=== PATIENT | male | born 1990 | race Caucasian/White ===

== ENCOUNTER 2017-10-09 23:57 | Emergency (ER) | payer OTHER ==
[2017-10-10] MEDS ORDERED: NALOXONE HCL 0.4 MG/ML VIAL ONE ×2 (00:05→00:08)
[2017-10-10 00:20] VITALS: BP 153/109; PULSE 84; TEMP 98.7; BMI 24.4
--- NOTE | 2017-10-10 00:38 | PDOC ---
History of Present Illness - General Chief Complaint: Overdose Stated Complaint: OVERDOSE Time Seen by Provider: 10/10/17 00:19 History Source: Patient, EMS - History of Present Illness Initial Comments: 10/10/17 00:39 27 year old male BIB EMS for overdose of Percocet. s/p Narcan by EMS. patient alert slurred speech. reports that he get s Percocet from pain management took 3 tablets of percocet 7.5mg at 9 pm. 10/10/17 01:45 Past History - Past Medical History Allergies/Adverse Reactions: Allergies Allergy/AdvReac Type Severity Reaction Status Date / Time No Known Allergies Allergy Verified 10/10/17 00:17 Home Medications: Ambulatory Orders NK [No Known Home Medication] 08/13/16 Anemia: No Asthma: No Cancer: No Cardiac Disorders: No CVA: No COPD: No CHF: No Dementia: No Diabetes: No GI Disorders: No Disorders: No HTN: No Hypercholesterolemia: No Kidney Stones: No Liver Disease: No Seizures: Yes (etoh related last 1 wk) Thyroid Disease: No - Reproductive History Testicular Surgery: No - Immunization History Td Vaccination: Yes - Suicide/Smoking/Psychosocial Hx Smoking Status: Yes Smoking History: Current every day smoker Have you smoked in the past 12 months: No Number of Cigarettes Smoked Daily: 20 Information on smoking cessation initiated: No 'Breaking Loose' booklet given: 02/23/13 Hx Alcohol Use: No Drug/Substance Use Hx: No Substance Use Type: None Hx Substance Use Treatment: Yes Trauma Specific PMHX - Complaint Specific PMHX Arthritis: No Review of Systems - Review of Systems Able to Perform ROS?: Yes Is the patient limited Kiswahili proficient: No *Physical Exam - Vital Signs Last Vital Signs Temp Pulse Resp BP Pulse Ox 98.7 F 84 14 153/109 99 10/10/17 00:17 10/10/17 00:17 10/10/17 00:17 10/10/17 00:17 10/10/17 00:17 - Physical Exam General Appearance: Yes: Appropriately Dressed HEENT: positive: Other (pin point pupils) Respiratory/Chest: positive: Lungs Clear, Normal Breath Sounds Cardiovascular: positive: Regular Rhythm, Regular Rate Gastrointestinal/Abdominal: positive: Normal Bowel Sounds, Soft Extremity: positive: Normal Capillary Refill, Normal Inspection Integumentary: positive: Normal Color, Dry, Warm (neurologic is) Neurologic: positive: Alert, Other (slurred speech) Progress Note - Progress Note Progress Note: A:Opiod overdose; head injury P ct head LFT tylenol level will await sobriety prior to discharge. Medical Decision Making - Medical Decision Making 10/10/17 00:43 I spoke to poison control. recommend Tylenol level at 4 hour dane. if positive may need to repeat it at 8 hour dane. *DC/Admit/Observation/Transfer Diagnosis at time of Disposition: Drug abuse Overdose Qualifiers: Encounter type: initial encounter Injury intent: accidental or unintentional Qualified Code(s): T50.901A - Poisoning by unspecified drugs, medicaments and biological substances, accidental (unintentional), initial encounter - Discharge Dispostion Disposition: HOME - Referrals Referrals: Jr Downey [Primary Care Provider] - - Patient Instructions Printed Discharge Instructions: Prescription Drug Addiction Additional Instructions: refrain from using prescription drugs. - Post Discharge Activity
[2017-10-10 02:23] LABS: ALK PHOS 52 U/L (45-117); BILIRUBIN,DIRECT < 0.2 mg/dL (0.0-0.2); BILIRUBIN,TOTAL 0.4 mg/dL (0.2-1.0); SGOT/AST 13 U/L (15-37); SGPT/ALT 23 U/L (12-78); TOT PROT 7.5 g/dl (6.4-8.2)
== END 2017-10-10 04:02 | disposition home or self-care (01) ==
LOC: JER 23:57
DX: T40.2X1A Poisoning by other opioids, accidental (unintentional), initial encounter (principal); G40.509 Epileptic seizures related to external causes, not intractable, without status epilepticus; F17.210 Nicotine dependence, cigarettes, uncomplicated
CPT/HCPCS: 36415; 70450-TC; 80076; 80307; 99281-25

== ENCOUNTER 2017-11-01 08:09 | Inpatient (IN) | payer OTHER ==
[2017-11-01 08:46] VITALS: BMI 25.2
--- NOTE | 2017-11-01 09:27 | HP ---
COWS - Scale Resting Pulse: 0= NE 80 or Below Sweatin= Chills/Flushing Restless Observation: 1= Difficult to Sit Still Pupil Size: 0= Normal to Room Light Bone or Joint Aches: 1= Mild Discomfort Runny Nose/ Eye Tearin= Nasal Congestion GI Upset > 30mins: 1= Stomach Cramp Tremor Observation: 1= Tremor [place], Not Seen Yawning Observation: 0= None Anxiety or Irritability: 1=Feels Anxious/Irritable Goose Flesh Skin: 0=Smooth Skin COWS Score: 7 CIWA Score - CIWA Score Nausea/Vomitin Muscle Tremors: 4-Moderate,w/Arms Extend Anxiety: 4-Mod. Anxious/Guarded Agitation: 4-Moderately Restless Paroxysmal Sweats: 1-Minimal Palms Moist Orientation: 0-Oriented Tacttile Disturbances: 1-Very Mild Itch/Numbness Auditory Disturbances: 1-Very Mild Visual Disturbances: 1-Very Mild Sensitivity Headache: 2-Mild CIWA-Ar Total Score: 20 Admission ROS BHS - HPI Chief Complaint: I want to clean up, detox off drugs Allergies/Adverse Reactions: Allergies Allergy/AdvReac Type Severity Reaction Status Date / Time No Known Allergies Allergy Verified 11/01/17 09:22 History of Present Illness: 27 yo gentleman here for detox from heroin, alcohol - also using PCP. No seizures, never on methadone or suboxone. Was in [facility] detox in June, attended outpatient but relapsed. Exam Limitations: No Limitations - Ebola screening Have you traveled outside of the country in the last 21 days: No Have you had contact with anyone from an Ebola affected area: No Have you been sick,other than usual withdrawal symptoms: No Do you have a fever: No - Review of Systems Constitutional: Chills, Loss of Appetite, Changes in sleep, Weakness, Unintentional Wgt. Loss EENT: reports: Nose Congestion Respiratory: reports: No Symptoms reported Cardiac: reports: No Symptoms Reported GI: reports: Difficulty Swallowing, Poor Appetite, Indigestion : reports: No Symptoms Reported Musculoskeletal: reports: Back Pain, Muscle Pain Integumentary: reports: No Symptoms Reported Neuro: reports: Headache Endocrine: reports: No Symptoms Reported Hematology: reports: No Symptoms Reported Psychiatric: reports: Judgement Intact, Mood/Affect Appropiate, Orientated x3, Anxious Other Systems: Reviewed and Negative Patient History - Patient Medical History Hx Anemia: No Hx Asthma: No Hx Chronic Obstructive Pulmonary Disease (COPD): No Hx Cancer: No Hx Cardiac Disorders: No Hx Congestive Heart Failure: No Hx Hypertension: No Hx Hypercholesterolemia: No Hx Pacemaker: No HX Cerebrovascular Accident: No Hx Seizures: Yes (as a child - never medicated) Hx Dementia: No Hx Diabetes: No Hx Gastrointestinal Disorders: No Hx Liver Disease: No Hx Genitourinary Disorders: No Hx Sexually Transmitted Disorders: No Hx Renal Disease (ESRD): No Hx Thyroid Disease: No Hx Human Immunodeficiency Virus (HIV): No Hx Hepatitis C: No Hx Depression: Yes (Not in tx,was at [facility]) Hx Suicide Attempt: No Hx Bipolar Disorder: No Hx Schizophrenia: No - Patient Surgical History Past Surgical History: No - PPD History Previous Implant?: Yes Documented Results: Negative w/proof Implanted On Prior [facility] Admission?: No Date: 02/25/13 PPD to be Administered?: Yes - Reproductive History Patient is a Female of Child Bearing Age (11 -55 yrs old): No (male) - Smoking Cessation Smoking history: Current every day smoker Have you smoked in the past 12 months: No Aproximately how many cigarettes per day: 20 Hx Chewing Tobacco Use: No Initiated information on smoking cessation: Yes 'Breaking Loose' booklet given: 11/01/17 (give on floor) - Substance & Tx. History Hx Alcohol Use: Yes Hx Substance Use: Yes Substance Use Type: Alcohol, Heroin, Marijuana Hx Substance Use Treatment: Yes (detox, rehab) - Substances Abused Alcohol Route: Oral Frequency: Daily Amount used: cognac(1 pint) Age of first use: 12 Date of Last Use: 10/31/17 Heroin Route: Inhalation Frequency: Daily Amount used: 3-4 bags Age of first use: 21 Date of Last Use: 10/31/17 PCP Route: Smoking Frequency: Daily Amount used: $10 Age of first use: 14 Date of Last Use: 10/31/17 Family Disease History - Family Disease History Family Disease History: Respiratory: Mother (living, COPD), Brother (two - living, asthma), Sister (two - healthy), Other: Father (living, schizophrenic,) , Mother, Son (three - ages 12, 8, 3, healthy), Daughter (one - age 11, healthy) Admission Physical Exam BHS - Vital Signs Vital Signs: Vital Signs - 24 hr 11/01/17 08:25 Temperature 97.9 F Pulse Rate 73 Respiratory 18 Rate Blood Pressure 149/70 - Physical General Appearance: Yes: Nourished, Appropriately Dressed, Mild Distress HEENTM: Yes: Hearing grossly Normal, Normocephalic, Normal Voice, Pharynx Normal , Nasal Congestion Respiratory: Yes: Normal Breath Sounds, No Respiratory Distress Neck: Yes: No masses,lesions,Nodules, Supple Breast: Yes: Breast Exam Deferred Cardiology: Yes: Regular Rhythm, Regular Rate Abdominal: Yes: Flat Genitourinary: Yes: Within Normal Limits Back: Yes: Normal Inspection Musculoskeletal: Yes: full range of Motion, Gait Steady, Back pain, Muscle Pain Extremities: Yes: Normal Inspection, Non-Tender Neurological: Yes: Fully Oriented, Alert, Normal Mood/Affect, Normal Response Integumentary: Yes: Normal Color, Warm Lymphatic: Yes: Within Normal Limits - Diagnostic (1) Alcohol dependence Current Visit: Yes Status: Active (2) Uncomplicated opioid dependence Current Visit: Yes Status: Acute (3) Nicotine dependence Current Visit: Yes Status: Acute Qualifiers: Nicotine product type: cigarettes Substance use status: uncomplicated Qualified Code(s): F17.210 - Nicotine dependence, cigarettes, uncomplicated (4) History of seizure Current Visit: Yes Status: Acute Cleared for Admission [facility] - Detox or Rehab [facility] Level of Care: Medically Managed Detox Regimen/Protocol: Methadone/Librium [facility] Breath Alcohol Content Breath Alcohol Content: 0 Urine Drug Screen - Results Drug Screen Negative: No Urine Drug Screen Results: THC-Marijuana, OPI-Opiates, PCP-Phencyclidine
[2017-11-01] MEDS ORDERED: MENTHOL/PHENOL 1 EACH UD MM PRN (10:10)
[2017-11-01] MEDS ORDERED: ACETAMINOPHEN 325 MG TABLET (FP) PO PRN (10:10)
[2017-11-01] MEDS ORDERED: MAGNESIUM HYDROX 2400MG/30ML ORAL SUSPENSION 30 ML CUP PO PRN (10:10)
[2017-11-01] MEDS ORDERED: P-EPHED 60MG/TRIPROLIDI 2.5MG TABLET PO PRN (10:10)
[2017-11-01] MEDS ORDERED: LOPERAMIDE HCL 2 MG CAPSULE PO PRN (10:10)
[2017-11-01] MEDS ORDERED: MAG HYDROX/AL HYDROX/SIMETH 30 ML UNIT-DOSE CUP PO PRN (10:10)
[2017-11-01] MEDS ORDERED: MAGNESIUM CITRATE 300 ML BOTTLE PO PRN (10:10)
[2017-11-01] MEDS ORDERED: IBUPROFEN 400 MG TABLET (FP) PO PRN (10:10)
[2017-11-01] MEDS ORDERED: guaiFENesin/D-METHORPHAN HB 10 ML UNIT-DOSE CUPS PO PRN (10:10)
[2017-11-01] MEDS ORDERED: NICOTINE POLACRILEX 4 MG GUM BUC PRN (10:13)
[2017-11-01] MEDS: chlordiazePOXIDE HCL 25 MG CAPSULE PO PRN ×2 (11:15→21:14)
[2017-11-01] MEDS ORDERED: METHADONE HCL 10 MG TABLET (FOR DETOX USE ONLY) PO ONE ×2 (12:00→23:00)
[2017-11-01] MEDS ORDERED: chlordiazePOXIDE HCL 25 MG CAPSULE PO ONE (15:00)
[2017-11-01] MEDS: chlordiazePOXIDE HCL 25 MG CAPSULE PO SCH ×2 (17:16→22:50)
[2017-11-01] MEDS: THIAMINE HCL 100 MG TABLET (FP) PO SCH (22:50)
[2017-11-02 00:22] LABS: URINE APPEARANCE CLOUDY; URINE BILIRUBIN NEGATIVE (NEGATIVE); URINE BLOOD NEGATIVE (NEGATIVE); URINE COLOR YELLOW; URINE GLUCOSE (UA) NEGATIVE (NEGATIVE); URINE KETONE NEGATIVE (NEGATIVE); URINE LEUK ESTERASE TRACE (NEGATIVE); URINE NITRITE NEGATIVE (NEGATIVE); URINE PROTEIN NEGATIVE (NEGATIVE)
[2017-11-02 00:44] LABS: EPI CELLS RARE /HPF (FEW); URINE BACTERIA RARE /hpf (NONE SEEN); URINE MUCUS MANY
[2017-11-02] MEDS: chlordiazePOXIDE HCL 25 MG CAPSULE PO PRN (01:24)
[2017-11-02] MEDS: chlordiazePOXIDE HCL 25 MG CAPSULE PO SCH ×4 (05:15→22:20)
--- NOTE | 2017-11-02 08:55 | EKG ---
Test Reason : Blood Pressure : / mmHG Vent. Rate : 073 BPM Atrial Rate : 073 BPM P-R Int : 134 ms QRS Dur : 102 ms QT Int : 376 ms P-R-T Axes : 078 082 065 degrees QTc Int : 414 ms NORMAL SINUS RHYTHM NORMAL ECG WHEN COMPARED WITH ECG OF 11-JUN-2015 00:22, NO SIGNIFICANT CHANGE WAS FOUND Confirmed by ISABEL SOTELO MD ([id number]) on 11/02/2017 8:54:58 AM Referred By: Confirmed By:ISABEL SOTELO MD
[2017-11-02] MEDS ORDERED: METHADONE HCL 10 MG TABLET (FOR DETOX USE ONLY) PO SCH (10:00)
[2017-11-02 10:09] LABS: ALBUMIN 3.9 g/dl (3.4-5.0); ANION GAP 7 (8-16); BLOOD UREA NITROGEN 15 mg/dL (7-18); CALCIUM 9.2 mg/dL (8.5-10.1); CHLORIDE 105 mmol/L (98-107); CO2 29 mmol/L (21-32); GLUCOSE,RANDOM 69 mg/dL (74-106); POTASSIUM 4.1 mmol/L (3.5-5.1); SODIUM 141 mmol/L (136-145)
[2017-11-02 10:14] LABS: ALK PHOS 66 U/L (45-117); BILIRUBIN,TOTAL 0.6 mg/dL (0.2-1.0); CREATININE 1.1 mg/dL (0.7-1.3); SGOT/AST 10 U/L (15-37); SGPT/ALT 22 U/L (12-78); TOT PROT 7.7 g/dl (6.4-8.2)
[2017-11-02 10:23] LABS: HEMATOCRIT 46.8 % (35.4-49); HEMOGLOBIN 15.7 GM/dL (11.7-16.9); MCH 30.6 pg (25.7-33.7); MCHC 33.5 g/dl (32.0-35.9); MEAN CELL VOLUME 91.4 fl (80-96); MEAN PLT VOLUME 10.1 fl (7.5-11.1); PLATELET COUNT 222 K/MM3 (134-434); RBC 5.12 M/mm3 (4.00-5.60); RDW 13.4 % (11.9-15.9); WHITE BLOOD COUNT 8.2 K/mm3 (4.0-10.0)
[2017-11-02] MEDS: PRENATAL VITAMINS W/ FOLIC ACID TABLET (FP) PO SCH (10:32)
[2017-11-02] MEDS ORDERED: FLU VACCINE QUAD 60 MCG/0.5 ML (MDV 17-18) IM ONE (12:00)
--- NOTE | 2017-11-02 12:02 | PN ---
[facility] CIWA - CIWA Score Nausea/Vomitin-No Nausea/No Vomiting Muscle Tremors: 1-None Visible, but [place] Anxiety: 1-Mildly Anxious Agitation: 1-Slight > Activity Paroxysmal Sweats: No Perspiration Orientation: 0-Oriented Tacttile Disturbances: 0-None Auditory Disturbances: 0-None Visual Disturbances: 0-None Headache: 0-None Present CIWA-Ar Total Score: 3 S COWS - Scale Resting Pulse: 0= [place] 80 or Below Sweatin= No chills or Flushing Restless Observation: 1= Difficult to Sit Still Pupil Size: 1= Pupils >than Normal Bone or Joint Aches: 2= Severe Diffuse Aches Runny Nose/ Eye Tearin= Runny Nose/Eyes GI Upset > 30mins: 1= Stomach Cramp Tremor Observation of Outstretched Hands: 1= Tremor [place], Not Seen Yawning Observation: 2= >3x During Session Anxiety or Irritability: 2=Irritable/Anxious Goose Flesh Skin: 3=Piloerection COWS Score: 15 [facility] Progress Note (SOAP) Subjective: joint pain irritable yawning Objective: 11/02/17 12:03 Vital Signs Temperature 97 F L 11/02/17 10:37 Pulse Rate 68 11/02/17 10:37 Respiratory Rate 16 11/02/17 10:37 Blood Pressure 125/67 11/02/17 10:37 O2 Sat by Pulse Oximetry (%) Laboratory Last Values WBC 8.2 K/mm3 (4.0-10.0) D 11/02/17 06:00 RBC 5.12 M/mm3 (4.00-5.60) 11/02/17 06:00 Hgb 15.7 GM/dL (11.7-16.9) 11/02/17 06:00 Hct 46.8 % (35.4-49) 11/02/17 06:00 MCV 91.4 fl (80-96) 11/02/17 06:00 MCH 30.6 pg (25.7-33.7) 11/02/17 06:00 MCHC 33.5 g/dl (32.0-35.9) 11/02/17 06:00 RDW 13.4 % (11.9-15.9) 11/02/17 06:00 Plt Count 222 K/MM3 (134-434) 11/02/17 06:00 MPV 10.1 fl (7.5-11.1) 11/02/17 06:00 Sodium 141 mmol/L (136-145) 11/02/17 06:00 Potassium 4.1 mmol/L (3.5-5.1) 11/02/17 06:00 Chloride 105 mmol/L (98-107) 11/02/17 06:00 Carbon Dioxide 29 mmol/L (21-32) 11/02/17 06:00 Anion Gap 7 (8-16) L 11/02/17 06:00 BUN 15 mg/dL (7-18) 11/02/17 06:00 Creatinine 1.1 mg/dL (0.7-1.3) 11/02/17 06:00 Creat Clearance w eGFR > 60 (>60) 11/02/17 06:00 Random Glucose 69 mg/dL (74-106) L 11/02/17 06:00 Calcium 9.2 mg/dL (8.5-10.1) 11/02/17 06:00 Total Bilirubin 0.6 mg/dL (0.2-1.0) D 11/02/17 06:00 AST 10 U/L (15-37) L D 11/02/17 06:00 ALT 22 U/L (12-78) 11/02/17 06:00 Alkaline Phosphatase 66 U/L (45-117) D 11/02/17 06:00 Total Protein 7.7 g/dl (6.4-8.2) 11/02/17 06:00 Albumin 3.9 g/dl (3.4-5.0) 11/02/17 06:00 Urine Color Yellow 11/01/17 14:30 Urine Appearance Cloudy 11/01/17 14:30 Urine pH 6.0 (5.0-8.0) 11/01/17 14:30 Ur Specific [place] 1.026 (1.001-1.035) 11/01/17 14:30 Urine Protein Negative (NEGATIVE) 11/01/17 14:30 Urine Glucose (UA) Negative (NEGATIVE) 11/01/17 14:30 Urine Ketones Negative (NEGATIVE) 11/01/17 14:30 Urine Blood Negative (NEGATIVE) 11/01/17 14:30 Urine Nitrite Negative (NEGATIVE) 11/01/17 14:30 Urine Bilirubin Negative (NEGATIVE) 11/01/17 14:30 Urine Urobilinogen 2.0 mg/dL (0.2-1.0) 11/01/17 14:30 Urine WBC (Auto) 3 /hpf (3-5) 11/01/17 14:30 Urine RBC (Auto) 5 /hpf (0-3) 11/01/17 14:30 Ur Epithelial Cells Rare /HPF (FEW) 11/01/17 14:30 Urine Bacteria Rare /hpf (NONE SEEN) 11/01/17 14:30 Urine Mucus Many 11/01/17 14:30 RPR Titer Nonreactive (NONREACTIVE) 11/02/17 06:00 HIV 1&2 Antibody Screen Negative 11/02/17 06:00 HIV P24 Antigen Negative 11/02/17 06:00 lab noted Assessment: 11/02/17 12:03 withdrawal sx Plan: continue detox
[2017-11-02] MEDS ORDERED: chlordiazePOXIDE HCL 25 MG CAPSULE PO ONE (13:00)
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
[2017-11-02] MEDS: NICOTINE 21 MG/24 HOURS TOPICAL PATCH TD SCH (17:48)
[2017-11-02] MEDS: QUEtiapine FUMARATE 100 MG TABLET (FP) PO SCH (22:19)
[2017-11-02] MEDS: THIAMINE HCL 100 MG TABLET (FP) PO SCH (22:19)
[2017-11-03] MEDS: chlordiazePOXIDE HCL 25 MG CAPSULE PO SCH ×2 (05:41→10:14)
[2017-11-03] MEDS: PRENATAL VITAMINS W/ FOLIC ACID TABLET (FP) PO SCH (10:13)
[2017-11-03] MEDS: NICOTINE 21 MG/24 HOURS TOPICAL PATCH TD SCH (10:14)
[2017-11-03] MEDS: METHADONE HCL 5 MG TABLET (FOR DETOX USE ONLY) PO SCH (10:14)
--- NOTE | 2017-11-03 12:14 | PN ---
[facility] CIWA - CIWA Score Nausea/Vomitin-Mild Nausea/No Vomiting Muscle Tremors: 4-Moderate,w/Arms Extend Anxiety: 3 Agitation: 3 Paroxysmal Sweats: 3 Orientation: 0-Oriented Tacttile Disturbances: 0-None Auditory Disturbances: 0-None Visual Disturbances: 0-None Headache: 0-None Present CIWA-Ar Total Score: 14 [facility] COWS - Scale Resting Pulse: 0= [place] 80 or Below Sweatin=Flushed/Facial Moisture Restless Observation: 1= Difficult to Sit Still Pupil Size: 0= Normal to Room Light Bone or Joint Aches: 2= Severe Diffuse Aches Runny Nose/ Eye Tearin= Nasal Congestion GI Upset > 30mins: 2= Nausea/Diarrhea Tremor Observation of Outstretched Hands: 1= Tremor [place], Not Seen Yawning Observation: 2= >3x During Session Anxiety or Irritability: 2=Irritable/Anxious Goose Flesh Skin: 0=Smooth Skin COWS Score: 13 S Progress Note (SOAP) Subjective: sweats shakes irritable body aches interrupted sleep nausea Objective: 11/03/17 12:12 Vital Signs Temperature 97.9 F 11/03/17 06:20 Pulse Rate 62 11/03/17 10:00 Respiratory Rate 16 11/03/17 10:00 Blood Pressure 123/78 11/03/17 10:00 O2 Sat by Pulse Oximetry (%) Laboratory Tests 11/01/17 11/02/17 11/02/17 14:30 06:00 06:00 WBC 8.2 D RBC 5.12 Hgb 15.7 Hct 46.8 MCV 91.4 MCH 30.6 MCHC 33.5 RDW 13.4 Plt Count 222 MPV 10.1 Sodium Potassium Chloride Carbon Dioxide Anion Gap BUN Creatinine Creat Clearance w eGFR Random Glucose Calcium Total Bilirubin AST ALT Alkaline Phosphatase Total Protein Albumin Urine Color Yellow Urine Appearance Cloudy Urine pH 6.0 Ur Specific [place] 1.026 Urine Protein Negative Urine Glucose (UA) Negative Urine Ketones Negative Urine Blood Negative Urine Nitrite Negative Urine Bilirubin Negative Urine Urobilinogen 2.0 Ur Leukocyte Esterase Negative Urine WBC (Auto) 3 Urine RBC (Auto) 5 Ur Epithelial Cells Rare Urine Bacteria Rare Urine Mucus Many RPR Titer HIV 1&2 Antibody Screen Negative HIV P24 Antigen Negative 11/02/17 11/02/17 06:00 06:00 WBC RBC Hgb Hct MCV MCH MCHC RDW Plt Count MPV Sodium 141 Potassium 4.1 Chloride 105 Carbon Dioxide 29 Anion Gap 7 L BUN 15 Creatinine 1.1 Creat Clearance w eGFR > 60 Random Glucose 69 L Calcium 9.2 Total Bilirubin 0.6 D AST 10 L D ALT 22 Alkaline Phosphatase 66 D Total Protein 7.7 Albumin 3.9 Urine Color Urine Appearance Urine pH Ur Specific [place] Urine Protein Urine Glucose (UA) Urine Ketones Urine Blood Urine Nitrite Urine Bilirubin Urine Urobilinogen Ur Leukocyte Esterase Urine WBC (Auto) Urine RBC (Auto) Ur Epithelial Cells Urine Bacteria Urine Mucus RPR Titer Nonreactive HIV 1&2 Antibody Screen HIV P24 Antigen aaox3 ambulating no acute distress Assessment: 11/03/17 12:13 withdrawal sx Plan: continue detox increase fluids ensure plus bid zofran prn
[2017-11-03] MEDS: chlordiazePOXIDE HCL 25 MG CAPSULE PO PRN ×2 (13:38→19:39)
[2017-11-03] MEDS: chlordiazePOXIDE 5 MG CAPSULE PO SCH ×2 (16:52→22:40)
[2017-11-03] MEDS: THIAMINE HCL 100 MG TABLET (FP) PO SCH (22:40)
[2017-11-03] MEDS: QUEtiapine FUMARATE 100 MG TABLET (FP) PO SCH (22:40)
[2017-11-04] MEDS: chlordiazePOXIDE 5 MG CAPSULE PO SCH ×2 (05:30→10:21)
[2017-11-04] MEDS: PRENATAL VITAMINS W/ FOLIC ACID TABLET (FP) PO SCH (10:21)
[2017-11-04] MEDS: METHADONE HCL 5 MG TABLET (FOR DETOX USE ONLY) PO SCH (10:21)
[2017-11-04] MEDS: NICOTINE 21 MG/24 HOURS TOPICAL PATCH TD SCH (10:21)
--- NOTE | 2017-11-04 12:08 | PN ---
[facility] Progress Note (SOAP) Subjective: anxiety chills sweats interrupted sleep Objective: 11/04/17 12:07 Vital Signs Temperature 96.8 F L 11/04/17 10:00 Pulse Rate 73 11/04/17 10:00 Respiratory Rate 18 11/04/17 10:00 Blood Pressure 134/79 11/04/17 10:00 O2 Sat by Pulse Oximetry (%) aaox3 ambulating no acute distress Assessment: 11/04/17 12:07 withdrawal sx Plan: continue detox increase fluids
[2017-11-04] MEDS: chlordiazePOXIDE HCL 10 MG CAPSULE PO SCH ×2 (17:37→22:12)
[2017-11-04] MEDS: THIAMINE HCL 100 MG TABLET (FP) PO SCH (22:12)
[2017-11-04] MEDS: diphenhydrAMINE HCL 50 MG CAPSULE PO PRN (22:12)
[2017-11-04] MEDS: QUEtiapine FUMARATE 100 MG TABLET (FP) PO SCH (22:12)
[2017-11-05] MEDS: chlordiazePOXIDE HCL 10 MG CAPSULE PO SCH ×2 (05:20→10:31)
[2017-11-05] MEDS ORDERED: METHADONE HCL 10 MG TABLET (FOR DETOX USE ONLY) PO SCH (10:00)
--- NOTE | 2017-11-05 10:24 | PN ---
[facility] Progress Note (SOAP) Subjective: tired shakes sweats Objective: 11/05/17 10:10 Vital Signs Temperature 97.5 F L 11/05/17 09:59 Pulse Rate 96 H 11/05/17 09:59 Respiratory Rate 18 11/05/17 09:59 Blood Pressure 106/63 11/05/17 09:59 O2 Sat by Pulse Oximetry (%) aaox3 ambulating no acute distress Assessment: 11/05/17 10:24 mild withdrawal sx Plan: continue detox d/c in am
[2017-11-05] MEDS: NICOTINE 21 MG/24 HOURS TOPICAL PATCH TD SCH (10:31)
[2017-11-05] MEDS: PRENATAL VITAMINS W/ FOLIC ACID TABLET (FP) PO SCH (10:31)
[2017-11-05 22:29] VITALS: PULSE 83
[2017-11-05] MEDS: THIAMINE HCL 100 MG TABLET (FP) PO SCH (22:44)
[2017-11-05] MEDS: QUEtiapine FUMARATE 100 MG TABLET (FP) PO SCH (22:44)
[2017-11-05] MEDS: diphenhydrAMINE HCL 50 MG CAPSULE PO PRN (22:45)
[2017-11-06] MEDS ORDERED: METHADONE HCL 5 MG TABLET (FOR DETOX USE ONLY) PO SCH (06:00)
[2017-11-06 06:35] VITALS: BP 114/56; TEMP 97.3
--- NOTE | 2017-11-06 08:43 | DS ---
[facility] Detox Discharge Summary Admission Date: 11/01/17 Discharge Date: 11/06/17 - History Present History: Alcohol Dependence, Opioid Dependence, Pcp Dependence - Physical Exam Results Vital Signs: Vital Signs Temperature 97.3 F L 11/06/17 06:35 Pulse Rate 83 11/06/17 06:35 Respiratory Rate 18 11/06/17 06:35 Blood Pressure 114/56 11/06/17 06:35 O2 Sat by Pulse Oximetry (%) - Treatment Hospital Course: Detox Protocol Followed, Detoxed Safely, Responded well, Discharged Condition Good, Rehab Referral Accepted - Medication Discharge Medications: Ambulatory Orders NK [No Known Home Medication] 08/13/16 - Diagnosis (1) Alcohol dependence with uncomplicated withdrawal Current Visit: Yes Status: Chronic (2) History of seizure Current Visit: Yes Status: Suspected (3) Opioid dependence with withdrawal Current Visit: Yes Status: Chronic (4) Phencyclidine dependence Current Visit: Yes Status: Chronic (5) Substance induced mood disorder Current Visit: Yes Status: Acute (6) Substance-induced sleep disorder Current Visit: Yes Status: Acute (7) Bipolar disorder Current Visit: Yes Status: Chronic (8) Nicotine dependence Current Visit: Yes Status: Chronic Qualifiers: Nicotine product type: cigarettes Substance use status: uncomplicated Qualified Code(s): F17.210 - Nicotine dependence, cigarettes, uncomplicated - AMA Did Patient Leave Against Medical Advice: No
== END 2017-11-06 09:25 | disposition home or self-care (01) | DRG 773 ==
LOC: YASAS 08:09 → Y6N 09:42
PROVIDERS: ADMIT Internal Medicine; ATTEND Internal Medicine
PROC: HZ2ZZZZ Detoxification Services for Substance Abuse Treatment (ICD-10-PCS; principal; 2017-11-01)
DX: F11.23 Opioid dependence with withdrawal (principal); F10.230 Alcohol dependence with withdrawal, uncomplicated; F16.20 Hallucinogen dependence, uncomplicated; F17.210 Nicotine dependence, cigarettes, uncomplicated; F19.24 Other psychoactive substance dependence with psychoactive substance-induced mood disorder; F19.282 Other psychoactive substance dependence with psychoactive substance-induced sleep disorder; F31.9 Bipolar disorder, unspecified; Z86.69 Personal history of other diseases of the nervous system and sense organs
CPT/HCPCS: 36415; 80053; 81003; 81015; 85027; 86593; 87389; 90688; 93005; 93010; G0008

== ENCOUNTER 2018-10-26 17:28 | Inpatient (IN) | payer OTHER ==
[2018-10-26 19:08] VITALS: BMI 24.3
--- NOTE | 2018-10-26 21:52 | HP ---
COWS - Scale Resting Pulse: 0= NC 80 or Below Sweatin=Flushed/Facial Moisture Restless Observation: 1= Difficult to Sit Still Pupil Size: 1= Pupils >than Normal Bone or Joint Aches: 4=Acute Joint/Muscle Pain Runny Nose/ Eye Tearin= Runny Nose/Eyes GI Upset > 30mins: 3= Vomiting/Diarrhea (vomiting x 2, diarrhea x 1) Tremor Observation: 2= Slight Tremor Visible Yawning Observation: 0= None Anxiety or Irritability: 2=Irritable/Anxious Goose Flesh Skin: 0=Smooth Skin COWS Score: 17 CIWA Score Nausea/Vomitin (vomiting x 2) Muscle Tremors: 4-Moderate,w/Arms Extend Anxiety: 1-Mildly Anxious Agitation: 1-Slight > Activity Paroxysmal Sweats: 1-Minimal Palms Moist Orientation: 0-Oriented Tacttile Disturbances: 1-Very Mild Itch/Numbness Auditory Disturbances: 0-None Visual Disturbances: 0-None Headache: 4-Moderately Severe CIWA-Ar Total Score: 15 - Admission Criteria [facility]ASAS Guidelines: Admission for Medically Managed Detox: Requires at least one of the followin. CIWA greater than 12 2. Seizures within the past 24 hours 3. Delirium tremens within the past 24 hours 4. Hallucinations within the past 24 hours 5. Acute intervention needed for co occurring medical disorder 6. Acute intervention needed for co occurring psychiatric disorder 7. Severe withdrawal that cannot be handled at a lower level of care (continued vomiting, continued diarrhea, abnormal vital signs) requiring intravenous medication and/or fluids 8. Admission ROS [facility] Chief Complaint: Heroin and alcohol withdrawal symptoms Allergies/Adverse Reactions: Allergies Allergy/AdvReac Type Severity Reaction Status Date / Time No Known Allergies Allergy Verified 10/26/18 20:39 History of Present Illness: 28 years old male with a long history of alcohol and heroin dependence (since age 12) is seeking admission to detox. Patient has been admitted to detox multiple times and reports insignificant period of sobriety (30 days while on treatment). Patient reports history of anxiety, seizure and depression. He denies suicidal ideation at this time. Exam Limitations: No Limitations - Ebola screening Have you traveled outside of the country in the last 21 days: No (N) Have you had contact with anyone from an Ebola affected area: No Have you been sick,other than usual withdrawal symptoms: No Do you have a fever: No - Review of Systems Constitutional: Chills, Loss of Appetite, Malaise, Night Sweats, Changes in sleep EENT: reports: No Symptoms Reported Respiratory: reports: No Symptoms reported Cardiac: reports: No Symptoms Reported GI: reports: Diarrhea, Nausea, Poor Appetite, Poor Fluid Intake, Vomiting, Abdominal cramping : reports: No Symptoms Reported Musculoskeletal: reports: Back Pain, Joint Pain, Muscle Pain Integumentary: reports: Dryness, Flushing Neuro: reports: Tremors Endocrine: reports: No Symptoms Reported Hematology: reports: No Symptoms Reported Psychiatric: reports: Orientated x3, Anxious, Depressed Other Systems: Reviewed and Negative Patient History - Patient Medical History Hx Anemia: No Hx Asthma: No Hx Chronic Obstructive Pulmonary Disease (COPD): No Hx Cancer: No Hx Cardiac Disorders: No Hx Congestive Heart Failure: No Hx Hypertension: No Hx Hypercholesterolemia: No Hx Pacemaker: No HX Cerebrovascular Accident: No Hx Seizures: Yes (Has seizure as a baby - Not on medication) Hx Dementia: No Hx Diabetes: No Hx Gastrointestinal Disorders: No Hx Liver Disease: No Hx Genitourinary Disorders: No Hx Sexually Transmitted Disorders: No Hx Renal Disease (ESRD): No Hx Thyroid Disease: No Hx Human Immunodeficiency Virus (HIV): No Hx Hepatitis C: No Hx Depression: Yes (Not on medication) Hx Suicide Attempt: No (Denies suicidal ideation at this time) Hx Bipolar Disorder: No Hx Schizophrenia: No Other Medical History: Anxiety - Not on medicaton - Patient Surgical History Past Surgical History: No Hx Neurologic Surgery: No Hx Cataract Extraction: No Hx Cardiac Surgery: No Hx Lung Surgery: No Hx Abdominal Surgery: No Hx Appendectomy: No Hx Cholecystectomy: No Hx Genitourinary Surgery: No Hx Orthopedic Surgery: No Anesthesia Reaction: No - PPD History Previous Implant?: Yes Documented Results: Negative w/o proof Date: 11/03/17 PPD to be Administered?: Yes - Reproductive History Patient is a Female of Child Bearing Age (11 -55 yrs old): No (Male) - Smoking Cessation Smoking history: Current every day smoker Have you smoked in the past 12 months: No Aproximately how many cigarettes per day: 20 Cigars Per Day: 0 Hx Chewing Tobacco Use: No Initiated information on smoking cessation: Yes 'Breaking Loose' booklet given: 10/26/18 - Substance & Tx. History Hx Alcohol Use: Yes Hx Substance Use: Yes Substance Use Type: Alcohol, Heroin Hx Substance Use Treatment: Yes ([facility]) - Substances Abused Alcohol Route: Oral Frequency: Daily Amount used: 1 PINT Age of first use: 17 Date of Last Use: 10/25/18 Heroin Route: SNIFF Frequency: Daily Amount used: 20 BAGS Age of first use: 24 Date of Last Use: 10/25/18 Family Disease History - Family Disease History Family Disease History: Respiratory: Mother (living, COPD), Brother (two - living, asthma), Sister (two - healthy), Other: Father (living, schizophrenic,) , Mother, Son (three - ages 12, 8, 3, healthy), Daughter (one - age 11, healthy) Admission Physical Exam [facility] - Vital Signs Vital Signs: Vital Signs - 24 hr 10/26/18 19:06 Temperature 97.1 F L Pulse Rate 70 Respiratory 18 Rate Blood Pressure 130/72 - Physical General Appearance: Yes: Tremorous, Irritable, Sweating, Anxious HEENTM: Yes: EOMI, Normal ENT Inspection, Normocephalic, Normal Voice, PARRIS Respiratory: Yes: Lungs Clear, Normal Breath Sounds, No Respiratory Distress Neck: Yes: Supple Breast: Yes: Breast Exam Deferred Cardiology: Yes: Regular Rhythm, Regular Rate Abdominal: Yes: Normal Bowel Sounds, Soft Genitourinary: Yes: Within Normal Limits Back: Yes: Normal Inspection Musculoskeletal: Yes: Back pain, Muscle Pain, Muscle weakness Extremities: Yes: Tremors Neurological: Yes: cloth printer II-XII NML intact, Alert, Normal Mood/Affect Integumentary: Yes: Warm Lymphatic: Yes: Within Normal Limits - Diagnostic (1) Depression Current Visit: Yes Status: Chronic Qualifiers: Depression Type: unspecified Qualified Code(s): F32.9 - Major depressive disorder, single episode, unspecified (2) Anxiety Current Visit: Yes Status: Chronic (3) Alcohol dependence with uncomplicated withdrawal Current Visit: Yes Status: Chronic (4) Nicotine dependence Current Visit: Yes Status: Chronic Qualifiers: Nicotine product type: cigarettes Substance use status: uncomplicated Qualified Code(s): F17.210 - Nicotine dependence, cigarettes, uncomplicated (5) Opioid dependence with withdrawal Current Visit: Yes Status: Chronic (6) History of seizure Current Visit: No Status: Suspected Cleared for Admission S - Detox or Rehab [facility] Level of Care: Medically Managed Detox Regimen/Protocol: Methadone/Valium [facility] Breath Alcohol Content Breath Alcohol Content: 0 Urine Drug Screen - Results Drug Screen Negative: Yes Urine Drug Screen Results: THC-Marijuana, OPI-Opiates
[2018-10-26] MEDS ORDERED: MELATONIN 5 MG TABLETS PO PRN (22:00)
[2018-10-26] MEDS ORDERED: IBUPROFEN 400 MG TABLET (FP) PO PRN (22:11)
[2018-10-26] MEDS ORDERED: METHADONE HCL 10 MG TABLET (FOR DETOX USE ONLY) PO ONE ×6 (22:11→23:15)
[2018-10-26] MEDS ORDERED: LOPERAMIDE HCL 2 MG CAPSULE PO PRN (22:11)
[2018-10-26] MEDS ORDERED: MENTHOL/PHENOL 1 EACH UD MM PRN (22:11)
[2018-10-26] MEDS ORDERED: MAGNESIUM HYDROX 2400MG/30ML ORAL SUSPENSION 30 ML CUP PO PRN (22:11)
[2018-10-26] MEDS ORDERED: NICOTINE POLACRILEX 2 MG GUM BC PRN (22:11)
[2018-10-26] MEDS ORDERED: chlordiazePOXIDE HCL 25 MG CAPSULE PO PRN (22:11)
[2018-10-26] MEDS ORDERED: guaiFENesin/D-METHORPHAN HB 10 ML UNIT-DOSE CUPS PO PRN (22:11)
[2018-10-26] MEDS ORDERED: P-EPHED 60MG/TRIPROLIDI 2.5MG TABLET PO PRN (22:11)
[2018-10-26] MEDS ORDERED: ACETAMINOPHEN 325 MG TABLET (FP) PO PRN (22:11)
[2018-10-26] MEDS ORDERED: MAGNESIUM CITRATE 300 ML BOTTLE PO PRN (22:11)
[2018-10-26] MEDS ORDERED: MAG HYDROX/AL HYDROX/SIMETH 30 ML UNIT-DOSE CUP PO PRN (22:11)
[2018-10-26] MEDS ORDERED: diazePAM 5 MG TABLET PO ONE ×2 (22:16→23:15)
[2018-10-26] MEDS ORDERED: diazePAM 5 MG TABLET PO PRN (22:16)
[2018-10-26] MEDS ORDERED: chlordiazePOXIDE HCL 25 MG CAPSULE PO SCH (23:00)
[2018-10-26] MEDS: diazePAM 5 MG TABLET PO SCH ×5 (23:22→23:25)
[2018-10-27] MEDS: diazePAM 5 MG TABLET PO PRN ×2 (02:07→10:04)
[2018-10-27] MEDS: diazePAM 5 MG TABLET PO SCH ×3 (05:44→22:12)
--- NOTE | 2018-10-27 09:52 | CONSULT ---
[facility] Psychiatric Consult - Data Date of interview: 09/27/18 Admission source: [facility] Identifying data: Patient is a 28 year old single male, father of four, unemployed, and is residing with his mother. This is one of multiple admissions for patient. Patient admitted to for alcohol and opioid dependence. Substance Abuse History: Smoking Cessation. Smoking history: Current every day smoker. Have you smoked in the past 12 months: No. Aproximately how many cigarettes per day: 20. Cigars Per Day: 0. Hx Chewing Tobacco Use: No. Initiated information on smoking cessation: Yes. 'Breaking Loose' booklet given : 10/26/18. - Substance & Tx. History. Hx Alcohol Use: Yes. Hx Substance Use : Yes. Substance Use Type: Alcohol, Heroin. Hx Substance Use Treatment: Yes ( [facility]). - Substances Abused. Alcohol. Route: Oral. Frequency: Daily. Amount used: 1 PINT. Age of first use: 17. Date of Last Use: 10/25/18. Heroin. Route: SNIFF. Frequency: Daily. Amount used: 20 BAGS. Age of first use: 24. Date of Last Use: 10/25/18 Medical History: Seizues (as a baby) Psychiatric History: Patient's first psychiatric contact was at 10 years of age at an outpatient clinic in [facility] located in [facility] due to behavior disturbance. States he was mandated by his school to see a psychiatrist. States he was diagnosed with depression and anxiety. Treatment was discontinued after several months and denies following up with another mental health provider. He reports only seeing a psychiatrist when admitted to detox/ rehab facility. Patient denies h/o suicide attempt. Physical/Sexual Abuse/Trauma History: denies. Mental Status Exam - Mental Status Exam Alert and Oriented to: Time, Place, Person Cognitive Function: Good Patient Appearance: Unkempt (maldorous) Mood: Euthymic Affect: Mood Congruent Patient Behavior: Cooperative Speech Pattern: Appropriate Voice Loudness: Normal Thought Process: Intact, Goal Oriented Thought Disorder: Not Present Hallucinations: Denies Suicidal Ideation: Denies Homicidal Ideation: Denies Insight/Judgement: Poor Sleep: Poorly Appetite: Fair Muscle strength/Tone: Normal Gait/Station: Normal Psychiatric Findings - Problem List ([place] 1, 2,3) (1) Alcohol dependence with uncomplicated withdrawal Current Visit: Yes Status: Acute (2) Nicotine dependence Current Visit: Yes Status: Chronic Qualifiers: Nicotine product type: cigarettes Substance use status: uncomplicated Qualified Code(s): F17.210 - Nicotine dependence, cigarettes, uncomplicated (3) Opioid dependence with withdrawal Current Visit: Yes Status: Acute (4) Substance-induced sleep disorder Current Visit: Yes Status: Acute - Initial Treatment Plan Initial Treatment Plan: Psychoeducation provided. Detoxification in progress. Will order Seroquel 50mg qhs. Benefits and side effects discussed. Verbal consent given.
[2018-10-27 09:58] LABS: HEMATOCRIT 42.1 % (35.4-49); HEMOGLOBIN 13.9 GM/dL (11.7-16.9); MCH 29.6 pg (25.7-33.7); MEAN CELL VOLUME 89.7 fl (80-96); MEAN PLT VOLUME 9.7 fl (7.5-11.1); PLATELET COUNT 205 K/MM3 (134-434); RBC 4.69 M/mm3 (4.00-5.60); RDW 13.4 % (11.9-15.9)
[2018-10-27] MEDS ORDERED: METHADONE HCL 10 MG TABLET (FOR DETOX USE ONLY) PO SCH ×3 (10:00)
--- NOTE | 2018-10-27 10:00 | PN ---
[facility] CIWA - CIWA Score Nausea/Vomitin-No Nausea/No Vomiting Muscle Tremors: 3 Anxiety: 3 Agitation: 3 Paroxysmal Sweats: 3 Orientation: 0-Oriented Tacttile Disturbances: 0-None Auditory Disturbances: 0-None Visual Disturbances: 0-None Headache: 1-Very Mild CIWA-Ar Total Score: 13 BHS COWS - Scale Resting Pulse: 0= [place] 80 or Below Sweatin=Flushed/Facial Moisture Restless Observation: 1= Difficult to Sit Still Pupil Size: 0= Normal to Room Light Bone or Joint Aches: 2= Severe Diffuse Aches Runny Nose/ Eye Tearin= Nasal Congestion GI Upset > 30mins: 1= Stomach Cramp Tremor Observation of Outstretched Hands: 2= Slight Tremor Visible Yawning Observation: 2= >3x During Session Anxiety or Irritability: 2=Irritable/Anxious Goose Flesh Skin: 3=Piloerection COWS Score: 16 BHS Progress Note (SOAP) Subjective: sweats shakes body aches interrupted sleep agitation nausea headaches Objective: 10/27/18 10:15 Vital Signs Temperature 97.2 F L 10/27/18 09:16 Pulse Rate 73 10/27/18 09:16 Respiratory Rate 18 10/27/18 09:16 Blood Pressure 137/72 10/27/18 09:16 O2 Sat by Pulse Oximetry (%) Laboratory Tests 10/27/18 10/27/18 07:00 07:00 WBC 9.0 RBC 4.69 Hgb 13.9 Hct 42.1 MCV 89.7 MCH 29.6 MCHC 33.0 RDW 13.4 Plt Count 205 MPV 9.7 Sodium 143 Potassium 3.8 Chloride 107 Carbon Dioxide 27 Anion Gap 9 BUN 18 Creatinine 1.0 Creat Clearance w eGFR > 60 Random Glucose 96 Calcium 8.2 L Total Bilirubin 0.4 AST 8 L ALT 19 Alkaline Phosphatase 50 Total Protein 6.3 L Albumin 3.4 rest of labs pending aaox3 ambulating no acute distress Assessment: 10/27/18 10:15 withdrawal sx Plan: continue detox increase fluids zofran SL prn
[2018-10-27] MEDS: PRENATAL VITAMINS W/ FOLIC ACID TABLET (FP) PO SCH (10:04)
[2018-10-27] MEDS: NICOTINE 14 MG/24 HOURS TOPICAL PATCH TD SCH (10:04)
[2018-10-27 10:14] LABS: ALBUMIN 3.4 g/dl (3.4-5.0); ALK PHOS 50 U/L (45-117); ANION GAP 9 MMOL/L (8-16); BILIRUBIN,TOTAL 0.4 mg/dL (0.2-1); BLOOD UREA NITROGEN 18 mg/dL (7-18); CALCIUM 8.2 mg/dL (8.5-10.1); CHLORIDE 107 mmol/L (98-107); CO2 27 mmol/L (21-32); GLUCOSE,RANDOM 96 mg/dL (74-106); POTASSIUM 3.8 mmol/L (3.5-5.1); SGOT/AST 8 U/L (15-37); SGPT/ALT 19 U/L (13-61); SODIUM 143 mmol/L (136-145); TOT PROT 6.3 g/dl (6.4-8.2)
[2018-10-27] MEDS: QUEtiapine FUMARATE 50 MG TABLET PO SCH (22:12)
[2018-10-27] MEDS: THIAMINE HCL 100 MG TABLET (FP) PO SCH (22:12)
[2018-10-27] MEDS ORDERED: chlordiazePOXIDE HCL 25 MG CAPSULE PO SCH (23:00)
[2018-10-28] MEDS: diazePAM 5 MG TABLET PO PRN ×3 (05:53→17:36)
[2018-10-28] MEDS ORDERED: TRIMETHOBENZAMIDE HCL 300 MG CAPSULE PO PRN (09:49)
--- NOTE | 2018-10-28 09:53 | PN ---
[facility] CIWA - CIWA Score Nausea/Vomitin-No Nausea/No Vomiting Muscle Tremors: 3 Anxiety: 3 Agitation: 3 Paroxysmal Sweats: 3 Orientation: 0-Oriented Tacttile Disturbances: 0-None Auditory Disturbances: 0-None Visual Disturbances: 0-None Headache: 0-None Present CIWA-Ar Total Score: 12 BHS COWS - Scale Resting Pulse: 0= MD 80 or Below Sweatin=Flushed/Facial Moisture Restless Observation: 1= Difficult to Sit Still Pupil Size: 0= Normal to Room Light Bone or Joint Aches: 2= Severe Diffuse Aches Runny Nose/ Eye Tearin= None GI Upset > 30mins: 0= None Tremor Observation of Outstretched Hands: 1= Tremor [place], Not Seen Yawning Observation: 2= >3x During Session Anxiety or Irritability: 2=Irritable/Anxious Goose Flesh Skin: 0=Smooth Skin COWS Score: 10 S Progress Note (SOAP) Subjective: interrupted sleep agitation sweats body aches Objective: 10/28/18 09:52 Vital Signs Temperature 98.2 F 10/28/18 09:40 Pulse Rate 74 10/28/18 09:40 Respiratory Rate 18 10/28/18 09:40 Blood Pressure 118/80 10/28/18 09:40 O2 Sat by Pulse Oximetry (%) Laboratory Tests 10/27/18 10/27/18 10/27/18 07:00 07:00 07:00 WBC 9.0 RBC 4.69 Hgb 13.9 Hct 42.1 MCV 89.7 MCH 29.6 MCHC 33.0 RDW 13.4 Plt Count 205 MPV 9.7 Sodium 143 Potassium 3.8 Chloride 107 Carbon Dioxide 27 Anion Gap 9 BUN 18 Creatinine 1.0 Creat Clearance w eGFR > 60 Random Glucose 96 Calcium 8.2 L Total Bilirubin 0.4 AST 8 L ALT 19 Alkaline Phosphatase 50 Total Protein 6.3 L Albumin 3.4 RPR Titer Nonreactive aaox3 lying in bed no acute distress Assessment: 10/28/18 09:53 withdrawal sx Plan: continue detox increase fluids
[2018-10-28] MEDS ORDERED: diazePAM 5 MG TABLET PO SCH (10:00)
[2018-10-28] MEDS ORDERED: METHADONE HCL 5 MG TABLET (FOR DETOX USE ONLY) PO SCH ×2 (10:00)
[2018-10-28] MEDS: PRENATAL VITAMINS W/ FOLIC ACID TABLET (FP) PO SCH (10:33)
[2018-10-28] MEDS: NICOTINE 14 MG/24 HOURS TOPICAL PATCH TD SCH (10:33)
[2018-10-28] MEDS: METHADONE HCL 5 MG TABLET (FOR DETOX USE ONLY) PO SCH (10:34)
[2018-10-28] MEDS: diazePAM 5 MG TABLET PO SCH ×2 (10:34→22:18)
[2018-10-28 10:54] LABS: URINE APPEARANCE CLEAR; URINE BILIRUBIN NEGATIVE (<2.0 mg/dL); URINE COLOR STRAW; URINE GLUCOSE (UA) NEGATIVE (NEGATIVE); URINE KETONE NEGATIVE (NEGATIVE); URINE LEUK ESTERASE 1+ (NEGATIVE); URINE NITRITE NEGATIVE (NEGATIVE); URINE PROTEIN NEGATIVE (NEGATIVE); URINE UROBILINOGEN NEGATIVE mg/dL (0.2-1.0)
[2018-10-28 11:24] LABS: EPI CELLS RARE /HPF (FEW); URINE MUCUS RARE
[2018-10-28] MEDS: THIAMINE HCL 100 MG TABLET (FP) PO SCH (22:18)
[2018-10-28] MEDS: QUEtiapine FUMARATE 50 MG TABLET PO SCH (22:18)
[2018-10-28] MEDS ORDERED: chlordiazePOXIDE 5 MG CAPSULE PO SCH (23:00)
[2018-10-29] MEDS: diazePAM 5 MG TABLET PO SCH ×2 (09:01→22:29)
[2018-10-29] MEDS: PRENATAL VITAMINS W/ FOLIC ACID TABLET (FP) PO SCH (09:01)
[2018-10-29] MEDS: NICOTINE 14 MG/24 HOURS TOPICAL PATCH TD SCH (09:01)
[2018-10-29] MEDS: METHADONE HCL 5 MG TABLET (FOR DETOX USE ONLY) PO SCH (09:01)
--- NOTE | 2018-10-29 09:26 | PN ---
BHS Progress Note (SOAP) Subjective: interrupted sleep anxiety sweats irritable Objective: 10/29/18 09:26 Vital Signs Temperature 97.2 F L 10/29/18 09:02 Pulse Rate 92 H 10/29/18 09:02 Respiratory Rate 18 10/29/18 09:02 Blood Pressure 140/79 10/29/18 09:02 O2 Sat by Pulse Oximetry (%) aaox3 ambulating no acute distress Assessment: 10/29/18 09:26 withdrawal sx Plan: continue detox increase fluids
[2018-10-29] MEDS: diazePAM 5 MG TABLET PO PRN ×3 (13:45→21:59)
[2018-10-29] MEDS: QUEtiapine FUMARATE 50 MG TABLET PO SCH (21:59)
[2018-10-29] MEDS: THIAMINE HCL 100 MG TABLET (FP) PO SCH (21:59)
[2018-10-29] MEDS ORDERED: chlordiazePOXIDE HCL 10 MG CAPSULE PO SCH (23:00)
[2018-10-30 06:26] VITALS: BP 125/74; PULSE 67; TEMP 97.5
[2018-10-30] MEDS: PRENATAL VITAMINS W/ FOLIC ACID TABLET (FP) PO SCH (09:35)
[2018-10-30] MEDS ORDERED: diazePAM 5 MG TABLET PO SCH ×2 (10:00)
[2018-10-30] MEDS ORDERED: METHADONE HCL 10 MG TABLET (FOR DETOX USE ONLY) PO SCH ×3 (10:00)
--- NOTE | 2018-10-30 10:29 | DS ---
[facility] Detox Discharge Summary Admission Date: 10/26/18 Discharge Date: 10/30/18 - History Present History: Alcohol Dependence, Cannabis Dependence, Opioid Dependence, Pcp Dependence - Physical Exam Results Vital Signs: Vital Signs Temperature 97.5 F L 10/30/18 06:00 Pulse Rate 67 10/30/18 06:00 Respiratory Rate 18 10/30/18 06:00 Blood Pressure 125/74 10/30/18 06:00 O2 Sat by Pulse Oximetry (%) - Treatment Hospital Course: Detox Protocol Followed, Detoxed Safely, Responded well, Discharged Condition Good, Rehab Referral Accepted - Medication Discharge Medications: Ambulatory Orders Quetiapine Fumarate [Seroquel] 100 mg PO HS #30 tablet 03/09/18 - Diagnosis (1) Alcohol dependence with uncomplicated withdrawal Current Visit: Yes Status: Chronic (2) Opioid dependence with withdrawal Current Visit: Yes Status: Chronic (3) Substance-induced sleep disorder Current Visit: Yes Status: Acute (4) Anxiety Current Visit: Yes Status: Chronic (5) Depression Current Visit: Yes Status: Chronic Qualifiers: Depression Type: unspecified Qualified Code(s): F32.9 - Major depressive disorder, single episode, unspecified (6) Nicotine dependence Current Visit: Yes Status: Chronic Qualifiers: Nicotine product type: cigarettes Substance use status: uncomplicated Qualified Code(s): F17.210 - Nicotine dependence, cigarettes, uncomplicated (7) Insomnia Current Visit: No Status: Acute Qualifiers: Insomnia type: unspecified Qualified Code(s): G47.00 - Insomnia, unspecified (8) Marihuana dependence Current Visit: No Status: Acute (9) Phencyclidine dependence Current Visit: No Status: Acute (10) Substance induced mood disorder Current Visit: No Status: Acute (11) Bipolar disorder Current Visit: No Status: Chronic Qualifiers: Active/Remission status: remission status unspecified Qualified Code(s): F31.9 - Bipolar disorder, unspecified (12) History of seizure Current Visit: No Status: Suspected (13) Overdose Current Visit: No Status: Resolved Qualifiers: Encounter type: initial encounter Injury intent: accidental or unintentional Qualified Code(s): T50.901A - Poisoning by unspecified drugs, medicaments and biological substances, accidental (unintentional), initial encounter - AMA Did Patient Leave Against Medical Advice: No (going home)
[2018-10-31] MEDS ORDERED: METHADONE HCL 5 MG TABLET (FOR DETOX USE ONLY) PO SCH ×3 (06:00)
== END 2018-10-30 09:45 | disposition home or self-care (01) | DRG 773 ==
LOC: YASAS 17:28 → Y6N 22:26
PROC: HZ2ZZZZ Detoxification Services for Substance Abuse Treatment (ICD-10-PCS; principal; 2018-10-26)
DX: F11.23 Opioid dependence with withdrawal (principal); F10.230 Alcohol dependence with withdrawal, uncomplicated; F16.20 Hallucinogen dependence, uncomplicated; F12.20 Cannabis dependence, uncomplicated; F17.210 Nicotine dependence, cigarettes, uncomplicated; F19.282 Other psychoactive substance dependence with psychoactive substance-induced sleep disorder; R31.9 Hematuria, unspecified; F41.9 Anxiety disorder, unspecified; G47.00 Insomnia, unspecified; Z87.898 Personal history of other specified conditions
CPT/HCPCS: 36415; 80053; 81003; 81015; 85027; 86593

== ENCOUNTER 2018-11-01 14:57 | Emergency (ER) | payer OTHER ==
[2018-11-01 15:24] VITALS: BP 126/82; PULSE 102; TEMP 98; BMI 26.1
[2018-11-01] MEDS ORDERED: DIPHTH,PERTUSS(ACELL),TET 0.5 ML DISP.SYRIN IM ONE ×2 (16:31)
[2018-11-01] MEDS ORDERED: AMOX TR/POT CLAV 875MG/125MG TABLETS (FP) PO ONE (16:32)
[2018-11-01] MEDS ORDERED: IBUPROFEN 600 MG TABLET (FP) PO ONE ×2 (16:32→16:36)
[2018-11-01] MEDS ORDERED: BACITRACIN 15 GM TUBE TOPICAL OINTMENT TP ONE (16:34)
[2018-11-01] MEDS ORDERED: BACITRACIN 15 GM TUBE TOPICAL OINTMENT ONE (16:36)
[2018-11-01] MEDS ORDERED: AMOX TR/POT CLAV 875MG/125MG TABLETS (FP) ONE (16:36)
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
== END 2018-11-01 16:40 | disposition home or self-care (01) ==
LOC: JERFT 14:57
PROC: 0HQ1XZZ Repair Face Skin, External Approach (ICD-10-PCS; principal; 2018-11-01)
DX: S01.91XA Laceration without foreign body of unspecified part of head, initial encounter (principal); W50.0XXA Accidental hit or strike by another person, initial encounter; Y93.89 Activity, other specified; Y92.89 Other specified places as the place of occurrence of the external cause
CPT/HCPCS: 12013; 90715; 99282-25

== ENCOUNTER 2018-11-12 14:48 | Emergency (ER) | payer OTHER ==
--- NOTE | 2018-11-12 15:12 | PDOC ---
Rapid Medical Evaluation Medical Evaluation: Allergies Allergy/AdvReac Type Severity Reaction Status Date / Time No Known Allergies Allergy Verified 11/01/18 15:24 I have performed a brief in-person evaluation of this patient. The patient presents with a chief complaint of: Suture removal; was seen on 11/01 for laceration to chin Pertinent physical exam findings: Healed wound to lower chin; no redness or swelling or discharge The patient will proceed to the ED for further evaluation. 11/12/18 15:11
[2018-11-12 15:13] VITALS: BP 157/96; PULSE 97; TEMP 98.2; BMI 26.4
--- NOTE | 2018-11-12 15:23 | PDOC ---
Suture Removal/Wound Check HPI - History of Present Illness Chief Complaint: Suture/Staple Removal(Here) Stated Complaint: SUTURE/STAPLE REMOVAL History Source: Yes: Patient Exam Limitations: Yes: No Limitations - Previous ED Treatment Type of procedure performed on last visit: Yes: Laceration Repair Past History - Past Medical History Allergies/Adverse Reactions: Allergies Allergy/AdvReac Type Severity Reaction Status Date / Time No Known Allergies Allergy Verified 11/01/18 15:24 Home Medications: Ambulatory Orders NK [No Known Home Medication] 11/01/18 Anemia: No Asthma: No Cancer: No Cardiac Disorders: No CVA: No COPD: No CHF: No Dementia: No Diabetes: No GI Disorders: No Disorders: No HTN: No Hypercholesterolemia: No Kidney Stones: No Liver Disease: No Seizures: Yes (Has seizure as a baby - Not on medication) Thyroid Disease: No - Surgical History Abdominal Surgery: No Appendectomy: No Cardiac Surgery: No Cholecystectomy: No Lung Surgery: No Neurologic Surgery: No Orthopedic Surgery: No - Reproductive History Testicular Surgery: No - Immunization History Td Vaccination: Yes - Suicide/Smoking/Psychosocial Hx Smoking Status: Yes Smoking History: Current every day smoker Have you smoked in the past 12 months: No Number of Cigarettes Smoked Daily: 6 Cigars Per Day: 0 Information on smoking cessation initiated: No 'Breaking Loose' booklet given: 10/26/18 Hx Alcohol Use: No Drug/Substance Use Hx: No Substance Use Type: Alcohol, Heroin Hx Substance Use Treatment: Yes ([facility]) Suture Removal/Wound Check PE - Physical Exam Laceration/Wound Check Symptoms: reports: None. denies: Pain, Fever, Chills, Redness, Discharge, Bleeding Location of Laceration/Wound: right: Face (At chin) *Physical Exam - Vital Signs Last Vital Signs Temp Pulse Resp BP Pulse Ox 98.2 F 97 H 16 157/96 99 11/12/18 15:11 11/12/18 15:11 11/12/18 15:11 11/12/18 15:11 11/12/18 15:11 Moderate Sedation - Procedure Monitoring Vital Signs: Procedure Monitoring Vital Signs Temperature 98.2 F 11/12/18 15:11 Pulse Rate 97 H 11/12/18 15:11 Respiratory Rate 16 11/12/18 15:11 Blood Pressure 157/96 11/12/18 15:11 O2 Sat by Pulse Oximetry (%) 99 11/12/18 15:11 Medical Decision Making - Medical Decision Making 28 y/o M presents for suture removal after laceration repair to [facility] on 11/01. Patient site healed well. 7 sutures were removed. Stable for d/c 11/12/18 15:22 *DC/Admit/Observation/Transfer Diagnosis at time of Disposition: Visit for suture removal - Discharge Dispostion Disposition: HOME Condition at time of disposition: Stable Decision to Admit order: No - Referrals - Patient Instructions Printed Discharge Instructions: DI for Suture Removal - Post Discharge Activity
== END 2018-11-12 15:33 | disposition home or self-care (01) ==
LOC: JERFT 14:48
DX: Z48.817 Encounter for surgical aftercare following surgery on the skin and subcutaneous tissue (principal); Z48.02 Encounter for removal of sutures
CPT/HCPCS: 99281-25

== ENCOUNTER 2019-05-31 08:11 | Inpatient (IN) | payer OTHER ==
[2019-05-31 08:52] VITALS: BMI 23.6
--- NOTE | 2019-05-31 09:28 | HP ---
COWS - Scale Resting Pulse: 0= [place] 80 or Below Sweatin= Chills/Flushing Restless Observation: 1= Difficult to Sit Still Pupil Size: 1= Pupils >than Normal Bone or Joint Aches: 2= Severe Diffuse Aches Runny Nose/ Eye Tearin= Runny Nose/Eyes GI Upset > 30mins: 2= Nausea/Diarrhea Tremor Observation: 2= Slight Tremor Visible Yawning Observation: 2= >3x During Session Anxiety or Irritability: 2=Irritable/Anxious Goose Flesh Skin: 0=Smooth Skin COWS Score: 15 CIWA Score Nausea/Vomitin Muscle Tremors: 2 Anxiety: 2 Agitation: 3 Paroxysmal Sweats: 1-Minimal Palms Moist Orientation: 0-Oriented Tacttile Disturbances: 1-Very Mild Itch/Numbness Auditory Disturbances: 1-Very Mild Visual Disturbances: 0-None Headache: 2-Mild CIWA-Ar Total Score: 14 - Admission Criteria [facility] Guidelines: Admission for Medically Managed Detox: Requires at least one of the followin. CIWA greater than 12 2. Seizures within the past 24 hours 3. Delirium tremens within the past 24 hours 4. Hallucinations within the past 24 hours 5. Acute intervention needed for co occurring medical disorder 6. Acute intervention needed for co occurring psychiatric disorder 7. Severe withdrawal that cannot be handled at a lower level of care (continued vomiting, continued diarrhea, abnormal vital signs) requiring intravenous medication and/or fluids 8. Admission ROS [facility] Chief Complaint: i need help to stop usiing heroin,alcohol,xanax,percoet Allergies/Adverse Reactions: Allergies Allergy/AdvReac Type Severity Reaction Status Date / Time No Known Allergies Allergy Verified 05/31/19 08:46 History of Present Illness: this 28 years old male with heroin,alcohol,xanax and percocet dependence, withdrawal symptom,last detox [facility] 10/26/18 to 10/30/18 but keep relapsing childhood seizure nicotine dependence 1 pack/day weight loss no significant period of sobriety plan for out patient program Exam Limitations: No Limitations - Ebola screening Have you traveled outside of the country in the last 21 days: No (N) Have you had contact with anyone from an Ebola affected area: No Do you have a fever: No - Review of Systems Constitutional: Chills, Loss of Appetite, Malaise, Night Sweats, Changes in sleep, Weakness, Unintentional Wgt. Loss EENT: reports: Tearing, Nose Congestion Respiratory: reports: No Symptoms reported Cardiac: reports: No Symptoms Reported GI: reports: Nausea, Poor Appetite, Vomiting, Abdominal cramping : reports: No Symptoms Reported Musculoskeletal: reports: Back Pain, Joint Pain, Muscle Pain Integumentary: reports: Dryness Neuro: reports: Headache, Tremors Endocrine: reports: No Symptoms Reported Hematology: reports: No Symptoms Reported Psychiatric: reports: No Sypmtoms Reported, Judgement Intact, Mood/Affect Appropiate, Orientated x3 Other Systems: Reviewed and Negative Patient History - Patient Medical History Hx Anemia: No Hx Asthma: No Hx Chronic Obstructive Pulmonary Disease (COPD): No Hx Cancer: No Hx Cardiac Disorders: No Hx Congestive Heart Failure: No Hx Hypertension: No Hx Hypercholesterolemia: No Hx Pacemaker: No HX Cerebrovascular Accident: No Hx Seizures: Yes (Has seizure as a baby - Not on medication) Hx Dementia: No Hx Diabetes: No Hx Gastrointestinal Disorders: No Hx Liver Disease: No Hx Genitourinary Disorders: No Hx Sexually Transmitted Disorders: No Hx Renal Disease (ESRD): No Hx Thyroid Disease: No Hx Human Immunodeficiency Virus (HIV): No (11/10 negative) Hx Hepatitis C: No Hx Depression: Yes (Not on medication) Hx Suicide Attempt: Yes (overdose at age of 14 years) Hx Bipolar Disorder: Yes (n0 meds) Hx Schizophrenia: No Other Medical History: no suicidal,no homicidal - Patient Surgical History Past Surgical History: No Hx Neurologic Surgery: No Hx Cataract Extraction: No Hx Cardiac Surgery: No Hx Lung Surgery: No Hx Breast Surgery: No Hx Breast Biopsy: No Hx Abdominal Surgery: No Hx Appendectomy: No Hx Cholecystectomy: No Hx Genitourinary Surgery: No Hx Section: No Hx Orthopedic Surgery: No Anesthesia Reaction: No - PPD History Previous Implant?: Yes Documented Results: Negative w/proof Implanted On Prior R Admission?: Yes Date: 10/28/18 Results: 0 mm PPD to be Administered?: No - Smoking Cessation Smoking history: Current every day smoker Have you smoked in the past 12 months: No Aproximately how many cigarettes per day: 20 Cigars Per Day: 0 Hx Chewing Tobacco Use: No Initiated information on smoking cessation: Yes 'Breaking Loose' booklet given: 05/31/19 - Substance & Tx. History Hx Alcohol Use: Yes Hx Substance Use: Yes Substance Use Type: Alcohol, Heroin Hx Substance Use Treatment: Yes ([facility] 10/26/18 to 10/30/18) - Substances abused Alcohol Substance route: Oral Frequency: Daily Amount used: 1 PINT [place] Age of first use: 14 Date of last use: 05/29/19 Heroin Substance route: Inhalation Frequency: Daily Amount used: 5-6 BAGS Age of first use: 25 Date of last use: 05/29/19 Alprazolam (Xanax) Substance route: Oral Frequency: 3-6 times per week Amount used: 4 mgs Age of first use: 14 Date of last use: 05/29/19 Other Other (specify): percocet Substance route: Oral Frequency: 3-6 times per week Amount used: 2 tabs of 10 mgs Age of first use: 14 Date of last use: 05/30/19 Family Disease History - Family Disease History Family Disease History: Respiratory: Mother (living, COPD), Brother (two - living, asthma), Sister (two - healthy), Other: Father (living, schizophrenic,) , Mother, Son (three - ages 12, 8, 3, healthy), Daughter (one - age 11, healthy) Admission Physical Exam S - Vital Signs Vital Signs: Vital Signs - 24 hr 05/31/19 08:39 Temperature 97.8 F Pulse Rate 77 Respiratory 18 Rate Blood Pressure 132/81 - Physical General Appearance: Yes: Moderate Distress, Tremorous, Irritable, Sweating, Anxious HEENTM: Yes: Normal ENT Inspection, PARRIS Respiratory: Yes: Lungs Clear, Normal Breath Sounds, No Respiratory Distress Neck: Yes: Within Normal Limits, Supple, Trachea in good position Breast: Yes: Within Normal Limits Cardiology: Yes: Within Normal Limits, Regular Rhythm, Regular Rate, S1, S2 Abdominal: Yes: Within Normal Limits, Normal Bowel Sounds, Non Tender, Flat, Soft Genitourinary: Yes: Within Normal Limits Musculoskeletal: Yes: Back pain, Muscle Pain Extremities: Yes: Within Normal Limits, Normal Range of Motion, Tremors Neurological: Yes: lawn mower II-XII NML intact, Fully Oriented, Alert, Motor Strength 5/5 Integumentary: Yes: Dry Lymphatic: Yes: Within Normal Limits - Diagnostic (1) Opioid dependence with withdrawal Current Visit: No Status: Chronic (2) Alcohol dependence with uncomplicated withdrawal Current Visit: No Status: Chronic (3) Nicotine dependence Current Visit: No Status: Chronic Qualifiers: Nicotine product type: cigarettes Substance use status: uncomplicated Qualified Code(s): F17.210 - Nicotine dependence, cigarettes, uncomplicated (4) History of seizure Current Visit: No Status: Suspected (5) Overdose Current Visit: No Status: Resolved Qualifiers: Encounter type: initial encounter Injury intent: accidental or unintentional Qualified Code(s): T50.901A - Poisoning by unspecified drugs, medicaments and biological substances, accidental (unintentional), initial encounter (6) Bipolar disorder Current Visit: Yes Status: Acute (7) Bipolar disorder Current Visit: No Status: Chronic Qualifiers: Active/Remission status: remission status unspecified Qualified Code(s): F31.9 - Bipolar disorder, unspecified (8) History of seizures as a child Current Visit: Yes Status: Acute Cleared for Admission S - Detox or Rehab [facility] Level of Care: Medically Managed Detox Regimen/Protocol: Methadone/Librium Inpatient Rehab Admission - Rehab Decision to Admit Inpatient rehab admission?: No
[2019-05-31] MEDS ORDERED: cloNIDine HCL 0.1 MG TABLET PO PRN (11:17)
[2019-05-31] MEDS ORDERED: chlordiazePOXIDE HCL 25 MG CAPSULE PO PRN (11:18)
[2019-05-31] MEDS ORDERED: IBUPROFEN 400 MG TABLET (FP) PO PRN (11:19)
[2019-05-31] MEDS ORDERED: MAG HYDROX/AL HYDROX/SIMETH 30 ML UNIT-DOSE CUP PO PRN (11:19)
[2019-05-31] MEDS ORDERED: MAGNESIUM HYDROX 2400MG/30ML ORAL SUSPENSION 30 ML CUP PO PRN (11:19)
[2019-05-31] MEDS ORDERED: NICOTINE POLACRILEX 2 MG GUM BUC PRN (11:19)
[2019-05-31] MEDS ORDERED: MELATONIN 5 MG TABLETS PO PRN (11:19)
[2019-05-31] MEDS ORDERED: ACETAMINOPHEN 325 MG TABLET (FP) PO PRN ×2 (11:19)
[2019-05-31] MEDS ORDERED: MENTHOL/PHENOL 1 EACH UD MM PRN (11:19)
[2019-05-31] MEDS ORDERED: BISMUTH SUBSALICYLATE 524 MG/30 ML UD PO PRN (11:19)
[2019-05-31] MEDS ORDERED: MAGNESIUM CITRATE 300 ML BOTTLE PO PRN (11:19)
[2019-05-31] MEDS ORDERED: METHADONE HCL 10 MG TABLET (FOR DETOX USE ONLY) PO ONE (12:00)
[2019-05-31] MEDS: NICOTINE 21 MG/24 HOURS TOPICAL PATCH TD SCH (12:30)
[2019-05-31] MEDS: hydrOXYzine HCL 25 MG TABLET (FP) PO PRN (14:40)
[2019-05-31] MEDS: METHOCARBAMOL 500 MG TABLET PO PRN (14:41)
[2019-05-31 14:51] LABS: HEMATOCRIT 41.9 % (35.4-49); HEMOGLOBIN 14.3 GM/dL (11.7-16.9); MCH 31.6 pg (25.7-33.7); MCHC 34.2 g/dl (32.0-35.9); MEAN CELL VOLUME 92.3 fl (80-96); MEAN PLT VOLUME 9.9 fl (7.5-11.1); PLATELET COUNT 215 K/MM3 (134-434); RBC 4.54 M/mm3 (4.00-5.60); RDW 13.3 % (11.9-15.9); WHITE BLOOD COUNT 9.1 K/mm3 (4.0-10.0)
[2019-05-31 15:24] LABS: ALBUMIN 3.8 g/dl (3.4-5.0); BILIRUBIN,TOTAL 0.3 mg/dL (0.2-1); CALCIUM 8.5 mg/dL (8.5-10.1); CREATININE 0.9 mg/dL (0.55-1.3); POTASSIUM 3.5 mmol/L (3.5-5.1); TOT PROT 7.1 g/dl (6.4-8.2)
[2019-05-31 15:29] LABS: BLOOD UREA NITROGEN 13.2 mg/dL (7-18)
[2019-05-31] MEDS: chlordiazePOXIDE HCL 25 MG CAPSULE PO SCH ×2 (17:31→22:19)
[2019-05-31] MEDS: THIAMINE HCL 100 MG TABLET (FP) PO SCH (22:18)
[2019-06-01] MEDS: chlordiazePOXIDE HCL 25 MG CAPSULE PO SCH ×4 (05:38→22:10)
[2019-06-01] MEDS: METHOCARBAMOL 500 MG TABLET PO PRN ×3 (05:40→19:52)
[2019-06-01] MEDS ORDERED: METHADONE HCL 5 MG TABLET (FOR DETOX USE ONLY) PO ONE (10:00)
[2019-06-01] MEDS: NICOTINE 21 MG/24 HOURS TOPICAL PATCH TD SCH (10:07)
[2019-06-01] MEDS: PRENATAL VITAMINS W/ FOLIC ACID TABLET (FP) PO SCH (10:07)
[2019-06-01] MEDS: hydrOXYzine HCL 25 MG TABLET (FP) PO PRN ×2 (12:16→19:52)
[2019-06-01 12:29] LABS: URINE APPEARANCE CLEAR; URINE BILIRUBIN NEGATIVE (NEGATIVE); URINE COLOR YELLOW; URINE GLUCOSE (UA) NEGATIVE (NEGATIVE); URINE KETONE NEGATIVE (NEGATIVE); URINE LEUK ESTERASE NEGATIVE (NEGATIVE); URINE NITRITE NEGATIVE (NEGATIVE); URINE PROTEIN NEGATIVE (NEGATIVE); URINE UROBILINOGEN 0.2 mg/dL (0.2-1.0)
--- NOTE | 2019-06-01 13:04 | PN ---
S CIWA - CIWA Score Nausea/Vomitin-Mild Nausea/No Vomiting Muscle Tremors: 3 Anxiety: 3 Agitation: 2 Paroxysmal Sweats: 1-Minimal Palms Moist Orientation: 1-Uncertain about Date Tacttile Disturbances: 1-Very Mild Itch/Numbness Auditory Disturbances: 0-None Visual Disturbances: 0-None Headache: 1-Very Mild CIWA-Ar Total Score: 13 [facility] COWS - Scale Resting Pulse: 0= [place] 80 or Below Sweatin= Chills/Flushing Restless Observation: 0= Sits Still Pupil Size: 0= Normal to Room Light Bone or Joint Aches: 1= Mild Discomfort Runny Nose/ Eye Tearin= Nasal Congestion GI Upset > 30mins: 2= Nausea/Diarrhea Tremor Observation of Outstretched Hands: 2= Slight Tremor Visible Yawning Observation: 1= 1-2x During Session Anxiety or Irritability: 2=Irritable/Anxious Goose Flesh Skin: 3=Piloerection COWS Score: 13 [facility] Progress Note (SOAP) Subjective: anxiety tremor sweating body aches limited toleration to food Objective: 06/01/19 13:02 Vital Signs Temperature 96.9 F L 06/01/19 09:12 Pulse Rate 70 06/01/19 09:12 Respiratory Rate 16 06/01/19 09:12 Blood Pressure 131/75 06/01/19 09:12 O2 Sat by Pulse Oximetry (%) Laboratory Last Values WBC 9.1 K/mm3 (4.0-10.0) 05/31/19 13:10 RBC 4.54 M/mm3 (4.00-5.60) 05/31/19 13:10 Hgb 14.3 GM/dL (11.7-16.9) 05/31/19 13:10 Hct 41.9 % (35.4-49) 05/31/19 13:10 MCV 92.3 fl (80-96) 05/31/19 13:10 MCH 31.6 pg (25.7-33.7) 05/31/19 13:10 MCHC 34.2 g/dl (32.0-35.9) 05/31/19 13:10 RDW 13.3 % (11.9-15.9) 05/31/19 13:10 Plt Count 215 K/MM3 (134-434) 05/31/19 13:10 MPV 9.9 fl (7.5-11.1) 05/31/19 13:10 Sodium 140 mmol/L (136-145) 05/31/19 13:10 Potassium 3.5 mmol/L (3.5-5.1) 05/31/19 13:10 Chloride 107 mmol/L (98-107) 05/31/19 13:10 Carbon Dioxide 25 mmol/L (21-32) 05/31/19 13:10 Anion Gap 8 MMOL/L (8-16) 05/31/19 13:10 BUN 13.2 mg/dL (7-18) 05/31/19 13:10 Creatinine 0.9 mg/dL (0.55-1.3) 05/31/19 13:10 Est GFR (CKD-EPI)AfAm 132.37 05/31/19 13:10 Est GFR (CKD-EPI)NonAf 114.21 05/31/19 13:10 Random Glucose 124 mg/dL (74-106) H 05/31/19 13:10 Calcium 8.5 mg/dL (8.5-10.1) 05/31/19 13:10 Total Bilirubin 0.3 mg/dL (0.2-1) 05/31/19 13:10 AST 8 U/L (15-37) L 05/31/19 13:10 ALT 19 U/L (13-61) 05/31/19 13:10 Alkaline Phosphatase 54 U/L (45-117) 05/31/19 13:10 Total Protein 7.1 g/dl (6.4-8.2) 05/31/19 13:10 Albumin 3.8 g/dl (3.4-5.0) 05/31/19 13:10 Urine Color Yellow 06/01/19 09:58 Urine Appearance Clear 06/01/19 09:58 Urine pH 6.0 (5.0-8.0) 06/01/19 09:58 Ur Specific [place] 1.023 (1.010-1.035) 06/01/19 09:58 Urine Protein Negative (NEGATIVE) 06/01/19 09:58 Urine Glucose (UA) Negative (NEGATIVE) 06/01/19 09:58 Urine Ketones Negative (NEGATIVE) 06/01/19 09:58 Urine Blood Negative (NEGATIVE) 06/01/19 09:58 Urine Nitrite Negative (NEGATIVE) 06/01/19 09:58 Urine Bilirubin Negative (NEGATIVE) 06/01/19 09:58 Urine Urobilinogen 0.2 mg/dL (0.2-1.0) 06/01/19 09:58 Ur Leukocyte Esterase Negative (NEGATIVE) 06/01/19 09:58 RPR Titer Nonreactive (NONREACTIVE) 05/31/19 13:10 lab noted Assessment: 06/01/19 13:03 alcohol benzo opiate withdrawal sx Plan: continue alcohol benzo and opiate detox
[2019-06-01] MEDS: THIAMINE HCL 100 MG TABLET (FP) PO SCH (22:10)
[2019-06-02] MEDS: chlordiazePOXIDE HCL 25 MG CAPSULE PO SCH ×2 (05:44→10:17)
[2019-06-02] MEDS: METHOCARBAMOL 500 MG TABLET PO PRN (05:48)
[2019-06-02 09:17] VITALS: BP 115/73; PULSE 71; TEMP 96.7
[2019-06-02] MEDS ORDERED: METHADONE HCL 10 MG TABLET (FOR DETOX USE ONLY) PO ONE (10:00)
[2019-06-02] MEDS: PRENATAL VITAMINS W/ FOLIC ACID TABLET (FP) PO SCH (10:18)
[2019-06-02] MEDS: NICOTINE 21 MG/24 HOURS TOPICAL PATCH TD SCH (10:18)
--- NOTE | 2019-06-02 11:51 | PN ---
S CIWA - CIWA Score Nausea/Vomitin-Mild Nausea/No Vomiting Muscle Tremors: 3 Anxiety: 2 Agitation: 3 Paroxysmal Sweats: 1-Minimal Palms Moist Orientation: 0-Oriented Tacttile Disturbances: 1-Very Mild Itch/Numbness Auditory Disturbances: 0-None Visual Disturbances: 0-None Headache: 1-Very Mild CIWA-Ar Total Score: 12 [facility] COWS - Scale Resting Pulse: 0= [place] 80 or Below Sweatin= Chills/Flushing Restless Observation: 0= Sits Still Pupil Size: 0= Normal to Room Light Bone or Joint Aches: 1= Mild Discomfort Runny Nose/ Eye Tearin= Nasal Congestion GI Upset > 30mins: 2= Nausea/Diarrhea Tremor Observation of Outstretched Hands: 2= Slight Tremor Visible Yawning Observation: 2= >3x During Session Anxiety or Irritability: 2=Irritable/Anxious Goose Flesh Skin: 0=Smooth Skin COWS Score: 11 [facility] Progress Note (SOAP) Subjective: body aches cold sweat tremor Objective: 06/02/19 11:50 Vital Signs Temperature 96.7 F L 06/02/19 09:16 Pulse Rate 71 06/02/19 09:16 Respiratory Rate 18 06/02/19 09:16 Blood Pressure 115/73 06/02/19 09:16 O2 Sat by Pulse Oximetry (%) Laboratory Last Values WBC 9.1 K/mm3 (4.0-10.0) 05/31/19 13:10 RBC 4.54 M/mm3 (4.00-5.60) 05/31/19 13:10 Hgb 14.3 GM/dL (11.7-16.9) 05/31/19 13:10 Hct 41.9 % (35.4-49) 05/31/19 13:10 MCV 92.3 fl (80-96) 05/31/19 13:10 MCH 31.6 pg (25.7-33.7) 05/31/19 13:10 MCHC 34.2 g/dl (32.0-35.9) 05/31/19 13:10 RDW 13.3 % (11.9-15.9) 05/31/19 13:10 Plt Count 215 K/MM3 (134-434) 05/31/19 13:10 MPV 9.9 fl (7.5-11.1) 05/31/19 13:10 Sodium 140 mmol/L (136-145) 05/31/19 13:10 Potassium 3.5 mmol/L (3.5-5.1) 05/31/19 13:10 Chloride 107 mmol/L (98-107) 05/31/19 13:10 Carbon Dioxide 25 mmol/L (21-32) 05/31/19 13:10 Anion Gap 8 MMOL/L (8-16) 05/31/19 13:10 BUN 13.2 mg/dL (7-18) 05/31/19 13:10 Creatinine 0.9 mg/dL (0.55-1.3) 05/31/19 13:10 Est GFR (CKD-EPI)AfAm 132.37 05/31/19 13:10 Est GFR (CKD-EPI)NonAf 114.21 05/31/19 13:10 Random Glucose 124 mg/dL (74-106) H 05/31/19 13:10 Calcium 8.5 mg/dL (8.5-10.1) 05/31/19 13:10 Total Bilirubin 0.3 mg/dL (0.2-1) 05/31/19 13:10 AST 8 U/L (15-37) L 05/31/19 13:10 ALT 19 U/L (13-61) 05/31/19 13:10 Alkaline Phosphatase 54 U/L (45-117) 05/31/19 13:10 Total Protein 7.1 g/dl (6.4-8.2) 05/31/19 13:10 Albumin 3.8 g/dl (3.4-5.0) 05/31/19 13:10 Urine Color Yellow 06/01/19 09:58 Urine Appearance Clear 06/01/19 09:58 Urine pH 6.0 (5.0-8.0) 06/01/19 09:58 Ur Specific [place] 1.023 (1.010-1.035) 06/01/19 09:58 Urine Protein Negative (NEGATIVE) 06/01/19 09:58 Urine Glucose (UA) Negative (NEGATIVE) 06/01/19 09:58 Urine Ketones Negative (NEGATIVE) 06/01/19 09:58 Urine Blood Negative (NEGATIVE) 06/01/19 09:58 Urine Nitrite Negative (NEGATIVE) 06/01/19 09:58 Urine Bilirubin Negative (NEGATIVE) 06/01/19 09:58 Urine Urobilinogen 0.2 mg/dL (0.2-1.0) 06/01/19 09:58 Ur Leukocyte Esterase Negative (NEGATIVE) 06/01/19 09:58 RPR Titer Nonreactive (NONREACTIVE) 05/31/19 13:10 lab noted Assessment: 06/02/19 11:50 alcohol benzo and opiate withdrawal sx Plan: continue alcohol benzo and opiate detox
[2019-06-03] MEDS ORDERED: chlordiazePOXIDE HCL 10 MG CAPSULE PO PRN
[2019-06-03] MEDS ORDERED: chlordiazePOXIDE HCL 10 MG CAPSULE PO SCH (05:00)
[2019-06-03] MEDS ORDERED: METHADONE HCL 5 MG TABLET (FOR DETOX USE ONLY) PO ONE (06:00)
[2019-06-04] MEDS ORDERED: chlordiazePOXIDE HCL 10 MG CAPSULE PO SCH (05:00)
[2019-06-05] MEDS ORDERED: chlordiazePOXIDE HCL 10 MG CAPSULE PO ONE (05:00)
== END 2019-06-02 12:55 | disposition left against medical advice (07) | DRG 770 ==
LOC: YASAS 08:11 → Y3N 11:11
PROVIDERS: ADMIT Surgery; ATTEND Surgery
PROC: HZ2ZZZZ Detoxification Services for Substance Abuse Treatment (ICD-10-PCS; principal; 2019-05-31)
DX: F10.230 Alcohol dependence with withdrawal, uncomplicated (principal); F11.23 Opioid dependence with withdrawal; F13.230 Sedative, hypnotic or anxiolytic dependence with withdrawal, uncomplicated; F17.210 Nicotine dependence, cigarettes, uncomplicated; F31.9 Bipolar disorder, unspecified; Z86.69 Personal history of other diseases of the nervous system and sense organs; Z91.5 Personal history of self-harm; Z68.23 Body mass index [BMI] 23.0-23.9, adult
CPT/HCPCS: 36415; 80053; 81003; 85027; 86593

== ENCOUNTER 2019-07-20 20:24 | Inpatient (IN) | payer OTHER ==
[2019-07-20 21:09] VITALS: BMI 22.9
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
[2019-07-20] MEDS ORDERED: ONDANSETRON *ODT* 4 MG TABLET SL PRN (21:46)
[2019-07-20] MEDS ORDERED: IBUPROFEN 400 MG TABLET (FP) PO PRN (21:46)
[2019-07-20] MEDS ORDERED: hydrOXYzine PAMOATE 25 MG CAPSULE (FP) PO PRN (21:46)
[2019-07-20] MEDS ORDERED: MELATONIN 5 MG TABLETS PO PRN (21:46)
[2019-07-20] MEDS ORDERED: MENTHOL/PHENOL 1 EACH UD MM PRN (21:46)
[2019-07-20] MEDS ORDERED: MAG HYDROX/AL HYDROX/SIMETH 30 ML UNIT-DOSE CUP PO PRN (21:46)
[2019-07-20] MEDS ORDERED: MAGNESIUM HYDROX 2400MG/30ML ORAL SUSPENSION 30 ML CUP PO PRN (21:46)
[2019-07-20] MEDS ORDERED: ACETAMINOPHEN 325 MG TABLET (FP) PO PRN ×2 (21:46)
[2019-07-20] MEDS ORDERED: NICOTINE POLACRILEX 4 MG GUM BUC PRN (21:46)
[2019-07-20] MEDS ORDERED: MAGNESIUM CITRATE 300 ML BOTTLE PO PRN (21:46)
[2019-07-20] MEDS ORDERED: BISMUTH SUBSALICYLATE 524 MG/30 ML UD PO PRN (21:46)
[2019-07-20] MEDS ORDERED: NALOXONE HCL 0.4 MG/ML VIAL IM PRN (21:49)
[2019-07-20] MEDS ORDERED: chlordiazePOXIDE HCL 25 MG CAPSULE PO ONE (21:49)
[2019-07-20] MEDS ORDERED: cloNIDine HCL 0.1 MG TABLET PO PRN (21:49)
[2019-07-20] MEDS ORDERED: METHADONE HCL 10 MG TABLET (FOR DETOX USE ONLY) PO ONE (22:30)
[2019-07-20] MEDS: METHOCARBAMOL 500 MG TABLET PO PRN (23:00)
[2019-07-20] MEDS: THIAMINE HCL 100 MG TABLET (FP) PO SCH (23:00)
[2019-07-20] MEDS: chlordiazePOXIDE HCL 25 MG CAPSULE PO SCH (23:00)
[2019-07-20] MEDS: BACITRACIN 15 GM TUBE TOPICAL OINTMENT TP SCH (23:03)
[2019-07-21] MEDS: chlordiazePOXIDE HCL 25 MG CAPSULE PO PRN (02:30)
[2019-07-21] MEDS: chlordiazePOXIDE HCL 25 MG CAPSULE PO SCH ×4 (05:29→22:03)
[2019-07-21] MEDS: METHOCARBAMOL 500 MG TABLET PO PRN ×3 (05:32→22:05)
[2019-07-21] MEDS: AMOX TR/POT CLAV 875MG/125MG TABLETS (FP) PO SCH ×2 (08:02→16:58)
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
[2019-07-21] MEDS ORDERED: METHADONE HCL 5 MG TABLET (FOR DETOX USE ONLY) ONE (08:51)
[2019-07-21] MEDS ORDERED: METHADONE HCL 10 MG TABLET (FOR DETOX USE ONLY) ONE (08:51)
[2019-07-21] MEDS ORDERED: METHADONE (DETOX) 20 MG, METHADONE (DETOX) 5 MG PO ONE (10:00)
[2019-07-21 10:14] LABS: HEMOGLOBIN 13.9 GM/dL (11.7-16.9); MCH 31.4 pg (25.7-33.7); MCHC 33.8 g/dl (32.0-35.9); MEAN CELL VOLUME 92.8 fl (80-96); MEAN PLT VOLUME 10.1 fl (7.5-11.1); PLATELET COUNT 190 K/MM3 (134-434); RBC 4.42 M/mm3 (4.00-5.60); RDW 13.9 % (11.9-15.9); WHITE BLOOD COUNT 9.4 K/mm3 (4.0-10.0)
[2019-07-21] MEDS: NICOTINE 21 MG/24 HOURS TOPICAL PATCH TD SCH (10:17)
[2019-07-21] MEDS: PRENATAL VITAMINS W/ FOLIC ACID TABLET (FP) PO SCH (10:17)
[2019-07-21] MEDS: BACITRACIN 15 GM TUBE TOPICAL OINTMENT TP SCH (10:18)
[2019-07-21 10:33] LABS: ALBUMIN 3.6 g/dl (3.4-5.0); BILIRUBIN,TOTAL 0.2 mg/dL (0.2-1); BLOOD UREA NITROGEN 15.3 mg/dL (7-18); CALCIUM 8.9 mg/dL (8.5-10.1); CREATININE 0.9 mg/dL (0.55-1.3); TOT PROT 6.8 g/dl (6.4-8.2)
--- NOTE | 2019-07-21 12:44 | CONSULT ---
[facility] Psychiatric Consult - Data Date of interview: 07/21/19 Admission source: [facility] Identifying data: This is one of multiple admissions to [facility] for this 28 y/ o male self-referred for detoxification treatment (alcohol, heroin, cannabis, cocaine, xanax, phencyclidine). Patient is single, a father of four, domiciled and currently employed. Substance Abuse History: Confirmed by patient. Details in current [facility] report as follows : Smoking history: Current every day smoker. Have you smoked in the past 12 months: No. Aproximately how many cigarettes per day: 20. Cigars Per Day: 0. Hx Chewing Tobacco Use: No. Initiated information on smoking cessation : Yes. 'Breaking Loose' booklet given: 07/20/19. - Substance & Tx. History. Hx Alcohol Use: Yes. Hx Substance Use: Yes. Substance Use Type: Alcohol, Cocaine, Heroin, Marijuana, Opiates. Hx Substance Use Treatment: Yes. - Substances abused. Alcohol. Substance route: Oral. Frequency: Daily. Amount used: 1 PINT OF [place]. Age of first use: 14. Date of last use: . Heroin. Substance route: Inhalation. Frequency: Daily. Amount used : 5-6 BAGS. Age of first use: 25. Date of last use: 07/19/19. Alprazolam ( Xanax). Substance route: Oral. Frequency: 3-6 times per week. Amount used: 4 mgs. Age of first use: 14. Date of last use: 05/29/19. Other. Other ( specify): percocet. Substance route: Oral. Frequency: 3-6 times per week. Amount used: 2 tabs of 10 mgs. Age of first use: 14. Date of last use: . Cocaine. Substance route: Inhalation. Frequency: Daily. Amount used: 20 dollars. Age of first use: 13. Date of last use: 07/19/19. PCP. Substance route: Smoking. Frequency: Daily. Amount used: 10 bags. Age of first use: 13. Date of last use: 07/20/19. Ectasy. Substance route: Oral. Frequency: Daily. Amount used: 3 pills. Age of first use: 13. Date of last use: 07/19/19 Medical History: Patient endorses good general health. Psychiatric History: No reported history of psychiatric hospitalizations. Patient endorses MDD (and Anxiety Disorder as his diagnoses. Onset of psychiatric disturbances : age [age]. Was diagnosed with ADHD in childhood and treated with psychostimulant medications. Mr Rita indicates that he has been lost to follow-up for months. Last saw a psychiatrist during rehabilitation treatment at [facility] (06/2017).Was prescribed a regimen of klonopin + seroquel. No follow up since his discharge from [facility]. Patient denies history of suicide attempts. Physical/Sexual Abuse/Trauma History: No history. Additional Comment: Urine drug screen results: THC-Marijuana, FEN-Fentanyl, MOP- Opiates. Noted. Mental Status Exam - Mental Status Exam Alert and Oriented to: Time, Place, Person Cognitive Function: Good Patient Appearance: Unkempt (covered with tattoos : neck, arms, forearms, chest) , Disheveled (facial bruises ) Mood: Nervous, Withdrawn Affect: Mood Congruent, Constricted Patient Behavior: Fatigued, Cooperative Speech Pattern: Clear Voice Loudness: Normal Thought Process: Goal Oriented Thought Disorder: Not Present Hallucinations: Denies Suicidal Ideation: Denies Homicidal Ideation: Denies Insight/Judgement: Poor Sleep: Poorly, Difficulty falling asleep Appetite: Fair Muscle strength/Tone: Normal Gait/Station: Normal Psychiatric Findings - Problem List ([place] 1, 2,3) (1) Alcohol dependence with uncomplicated withdrawal Current Visit: Yes Status: Acute (2) Opioid dependence with withdrawal Current Visit: Yes Status: Acute (3) Phencyclidine dependence Current Visit: Yes Status: Chronic (4) Marihuana dependence Current Visit: Yes Status: Chronic (5) Nicotine dependence Current Visit: Yes Status: Chronic Qualifiers: Nicotine product type: cigarettes Substance use status: uncomplicated Qualified Code(s): F17.210 - Nicotine dependence, cigarettes, uncomplicated (6) Substance induced mood disorder Current Visit: Yes Status: Chronic (7) History of bipolar disorder Current Visit: Yes Status: Chronic (8) Insomnia Current Visit: Yes Status: Chronic Qualifiers: Insomnia type: unspecified Qualified Code(s): G47.00 - Insomnia, unspecified (9) Non-compliance Current Visit: Yes Status: Chronic - Initial Treatment Plan Initial Treatment Plan: Psychoeducation. Sleep hygiene. Support. Detoxification. Seroquel 100 mg po hs (patient's request). Side effects/ benefits discussed with the patient. Mr Jacinto gave verbal consent to MD. AA/NA meetings. Observation.
[2019-07-21] MEDS: traZODone HCL 100 MG TABLET (FP) PO PRN (13:51)
[2019-07-21] MEDS: LIDOCAINE 5% TOPICAL PATCH TP SCH (17:48)
[2019-07-21] MEDS: THIAMINE HCL 100 MG TABLET (FP) PO SCH (22:03)
[2019-07-21] MEDS: METHYL SALICYLATE/MENTHOL OINT 30 GM TUBE TP SCH (22:03)
[2019-07-21] MEDS: QUEtiapine FUMARATE 50 MG TABLET PO SCH (22:03)
[2019-07-21] MEDS: LIDOCAINE PATCH REMOVAL MC SCH (22:03)
[2019-07-22] MEDS: chlordiazePOXIDE HCL 25 MG CAPSULE PO SCH ×4 (05:47→22:03)
[2019-07-22] MEDS: METHOCARBAMOL 500 MG TABLET PO PRN ×2 (05:48→12:58)
[2019-07-22] MEDS: AMOX TR/POT CLAV 875MG/125MG TABLETS (FP) PO SCH ×2 (07:48→17:35)
--- NOTE | 2019-07-22 09:49 | PN ---
S CIWA - CIWA Score Nausea/Vomitin-No Nausea/No Vomiting Muscle Tremors: 2 Anxiety: 3 Agitation: 1-Slight > Activity Paroxysmal Sweats: No Perspiration Orientation: 0-Oriented Tacttile Disturbances: 0-None Auditory Disturbances: 0-None Visual Disturbances: 0-None Headache: 0-None Present CIWA-Ar Total Score: 6 BHS COWS - Scale Resting Pulse: 0= [place] 80 or Below Sweatin= Chills/Flushing Restless Observation: 0= Sits Still Pupil Size: 0= Normal to Room Light Bone or Joint Aches: 1= Mild Discomfort Runny Nose/ Eye Tearin= None GI Upset > 30mins: 2= Nausea/Diarrhea Tremor Observation of Outstretched Hands: 1= Tremor [place], Not Seen Yawning Observation: 0= None Anxiety or Irritability: 1=Feels Anxious/Irritable Goose Flesh Skin: 0=Smooth Skin COWS Score: 6 BHS Progress Note (SOAP) Subjective: doing well with libirujm and methadone detox regimen seen by psychiatrist recommend seroquel 100 mg po hs for insomnia due to low bp maintain seroquel at 50 mg po hs patient reporting that he is sleeping better at night in good spirit energy perform ADLs Objective: 07/22/19 09:48 Vital Signs Temperature 97 F L 07/22/19 09:15 Pulse Rate 74 07/22/19 09:15 Respiratory Rate 20 07/22/19 09:15 Blood Pressure 116/66 07/22/19 09:15 O2 Sat by Pulse Oximetry (%) Laboratory Last Values WBC 9.4 K/mm3 (4.0-10.0) 07/21/19 07:00 RBC 4.42 M/mm3 (4.00-5.60) 07/21/19 07:00 Hgb 13.9 GM/dL (11.7-16.9) 07/21/19 07:00 Hct 41.0 % (35.4-49) 07/21/19 07:00 MCV 92.8 fl (80-96) 07/21/19 07:00 MCH 31.4 pg (25.7-33.7) 07/21/19 07:00 MCHC 33.8 g/dl (32.0-35.9) 07/21/19 07:00 RDW 13.9 % (11.9-15.9) 07/21/19 07:00 Plt Count 190 K/MM3 (134-434) 07/21/19 07:00 MPV 10.1 fl (7.5-11.1) 07/21/19 07:00 Sodium 139 mmol/L (136-145) 07/21/19 07:00 Potassium 4.0 mmol/L (3.5-5.1) 07/21/19 07:00 Chloride 103 mmol/L (98-107) 07/21/19 07:00 Carbon Dioxide 27 mmol/L (21-32) 07/21/19 07:00 Anion Gap 8 MMOL/L (8-16) 07/21/19 07:00 BUN 15.3 mg/dL (7-18) 07/21/19 07:00 Creatinine 0.9 mg/dL (0.55-1.3) 07/21/19 07:00 Est GFR (CKD-EPI)AfAm 132.37 07/21/19 07:00 Est GFR (CKD-EPI)NonAf 114.21 07/21/19 07:00 Random Glucose 95 mg/dL (74-106) 07/21/19 07:00 Calcium 8.9 mg/dL (8.5-10.1) 07/21/19 07:00 Total Bilirubin 0.2 mg/dL (0.2-1) 07/21/19 07:00 AST 22 U/L (15-37) 07/21/19 07:00 ALT 33 U/L (13-61) 07/21/19 07:00 Alkaline Phosphatase 66 U/L (45-117) 07/21/19 07:00 Total Protein 6.8 g/dl (6.4-8.2) 07/21/19 07:00 Albumin 3.6 g/dl (3.4-5.0) 07/21/19 07:00 RPR Titer Nonreactive (NONREACTIVE) 07/21/19 07:00 Hep C Ab Diagnostic 0.3 s/co ratio (0.0-0.9) 07/21/19 06:00 HIV 1&2 Ag/Ab, 4th Gen Non reactive (Non Reactive) 07/21/19 06:00 HIV 1&2 Antibody Screen Cancelled 07/21/19 06:00 HIV P24 Antigen Cancelled 07/21/19 06:00 lab noted Assessment: 07/22/19 09:48 alcohol benzo opiate withdrawal sx alert oriented x 3 speech clearly coherently breath ease and even skin warm mild joints pain Plan: continue libirum and methadone detox regimen
[2019-07-22] MEDS ORDERED: METHADONE HCL 10 MG TABLET (FOR DETOX USE ONLY) PO ONE (10:00)
[2019-07-22] MEDS: METHYL SALICYLATE/MENTHOL OINT 30 GM TUBE TP SCH ×2 (10:21→22:05)
[2019-07-22] MEDS: BACITRACIN 15 GM TUBE TOPICAL OINTMENT TP SCH (10:21)
[2019-07-22] MEDS: PRENATAL VITAMINS W/ FOLIC ACID TABLET (FP) PO SCH (10:21)
[2019-07-22] MEDS: NICOTINE 21 MG/24 HOURS TOPICAL PATCH TD SCH (10:22)
[2019-07-22] MEDS: LIDOCAINE 5% TOPICAL PATCH TP SCH (10:23)
[2019-07-22] MEDS: chlordiazePOXIDE HCL 25 MG CAPSULE PO PRN (12:58)
[2019-07-22] MEDS: QUEtiapine FUMARATE 50 MG TABLET PO SCH (22:03)
[2019-07-22] MEDS: traZODone HCL 100 MG TABLET (FP) PO PRN (22:03)
[2019-07-22] MEDS: THIAMINE HCL 100 MG TABLET (FP) PO SCH (22:03)
[2019-07-22] MEDS: LIDOCAINE PATCH REMOVAL MC SCH (22:05)
[2019-07-23] MEDS ORDERED: chlordiazePOXIDE HCL 10 MG CAPSULE PO PRN
[2019-07-23] MEDS: chlordiazePOXIDE HCL 10 MG CAPSULE PO SCH ×3 (05:36→16:44)
[2019-07-23] MEDS: METHOCARBAMOL 500 MG TABLET PO PRN ×2 (05:37→16:44)
[2019-07-23] MEDS: AMOX TR/POT CLAV 875MG/125MG TABLETS (FP) PO SCH ×2 (08:05→16:44)
[2019-07-23] MEDS ORDERED: METHADONE HCL 10 MG TABLET (FOR DETOX USE ONLY) ONE (09:14)
[2019-07-23] MEDS ORDERED: METHADONE HCL 5 MG TABLET (FOR DETOX USE ONLY) ONE (09:16)
[2019-07-23] MEDS ORDERED: METHADONE (DETOX) 10 MG, METHADONE (DETOX) 5 MG PO ONE (10:00)
[2019-07-23] MEDS: PRENATAL VITAMINS W/ FOLIC ACID TABLET (FP) PO SCH (10:31)
[2019-07-23] MEDS: NICOTINE 21 MG/24 HOURS TOPICAL PATCH TD SCH (10:32)
[2019-07-23] MEDS: METHYL SALICYLATE/MENTHOL OINT 30 GM TUBE TP SCH (10:33)
[2019-07-23] MEDS: LIDOCAINE 5% TOPICAL PATCH TP SCH (11:27)
[2019-07-23 14:00] VITALS: BP 107/60; PULSE 70; TEMP 97.7
[2019-07-23] MEDS: BACITRACIN 15 GM TUBE TOPICAL OINTMENT TP SCH (14:04)
--- NOTE | 2019-07-23 14:15 | PN ---
[facility] CIWA - CIWA Score Nausea/Vomitin-Mild Nausea/No Vomiting Muscle Tremors: 1-None Visible, but [place] Anxiety: 2 Agitation: 2 Paroxysmal Sweats: No Perspiration Orientation: 0-Oriented Tacttile Disturbances: 1-Very Mild Itch/Numbness Auditory Disturbances: 0-None Visual Disturbances: 0-None Headache: 2-Mild CIWA-Ar Total Score: 9 BHS COWS - Scale Resting Pulse: 0= [place] 80 or Below Sweatin= Chills/Flushing Restless Observation: 0= Sits Still Pupil Size: 1= Pupils >than Normal Bone or Joint Aches: 2= Severe Diffuse Aches Runny Nose/ Eye Tearin= Nasal Congestion GI Upset > 30mins: 1= Stomach Cramp Tremor Observation of Outstretched Hands: 1= Tremor [place], Not Seen Yawning Observation: 1= 1-2x During Session Anxiety or Irritability: 2=Irritable/Anxious Goose Flesh Skin: 0=Smooth Skin COWS Score: 10 BHS Progress Note (SOAP) Subjective: alert,irritable,anxious ,interrupted sleep,pain in the body and back Objective: 07/23/19 14:16 Vital Signs Temperature 97.7 F 07/23/19 14:00 Pulse Rate 70 07/23/19 14:00 Respiratory Rate 18 07/23/19 14:00 Blood Pressure 107/60 07/23/19 14:00 O2 Sat by Pulse Oximetry (%) Assessment: 07/23/19 14:17 withdrawal symptom Plan: continue methadone and librium regimen
[2019-07-24] MEDS ORDERED: chlordiazePOXIDE HCL 10 MG CAPSULE PO SCH (05:00)
[2019-07-24] MEDS ORDERED: METHADONE HCL 10 MG TABLET (FOR DETOX USE ONLY) PO ONE (10:00)
[2019-07-25] MEDS ORDERED: chlordiazePOXIDE HCL 10 MG CAPSULE PO ONE (05:00)
[2019-07-25] MEDS ORDERED: METHADONE HCL 5 MG TABLET (FOR DETOX USE ONLY) PO ONE (06:00)
== END 2019-07-23 17:25 | disposition left against medical advice (07) | DRG 770 ==
LOC: YASAS 20:24 → Y3N 22:19
PROVIDERS: ADMIT Surgery; ATTEND Surgery
PROC: HZ2ZZZZ Detoxification Services for Substance Abuse Treatment (ICD-10-PCS; principal; 2019-07-20)
DX: F10.230 Alcohol dependence with withdrawal, uncomplicated (principal); F11.23 Opioid dependence with withdrawal; F13.230 Sedative, hypnotic or anxiolytic dependence with withdrawal, uncomplicated; F16.20 Hallucinogen dependence, uncomplicated; F12.20 Cannabis dependence, uncomplicated; F17.210 Nicotine dependence, cigarettes, uncomplicated; F19.24 Other psychoactive substance dependence with psychoactive substance-induced mood disorder; F31.9 Bipolar disorder, unspecified; G47.00 Insomnia, unspecified; Z86.69 Personal history of other diseases of the nervous system and sense organs; Z91.5 Personal history of self-harm; Z91.19 Patient's noncompliance with other medical treatment and regimen
CPT/HCPCS: 36415; 80053; 85027; 86593; 86803; 87389; Q0162

== ENCOUNTER 2019-08-08 04:05 | Inpatient (IN) | payer OTHER ==
--- NOTE | 2019-08-08 04:31 | HP ---
COWS - Scale Resting Pulse: 0= [place] 80 or Below Sweatin= Chills/Flushing Restless Observation: 1= Difficult to Sit Still Pupil Size: 1= Pupils >than Normal Bone or Joint Aches: 2= Severe Diffuse Aches Runny Nose/ Eye Tearin= Runny Nose/Eyes GI Upset > 30mins: 1= Stomach Cramp Tremor Observation: 2= Slight Tremor Visible Yawning Observation: 1= 1-2x During Session Anxiety or Irritability: 4=Extreme Anxiety Goose Flesh Skin: 0=Smooth Skin COWS Score: 15 CIWA Score Nausea/Vomitin-Mild Nausea/No Vomiting Muscle Tremors: 3 Anxiety: 2 Agitation: 2 Paroxysmal Sweats: 3 Orientation: 2-Disoriented Date<2 days Tacttile Disturbances: 0-None Auditory Disturbances: 0-None Visual Disturbances: 0-None Headache: 4-Moderately Severe CIWA-Ar Total Score: 17 - Admission Criteria OASAS Guidelines: Admission for Medically Managed Detox: Requires at least one of the followin. CIWA greater than 12 2. Seizures within the past 24 hours 3. Delirium tremens within the past 24 hours 4. Hallucinations within the past 24 hours 5. Acute intervention needed for co occurring medical disorder 6. Acute intervention needed for co occurring psychiatric disorder 7. Severe withdrawal that cannot be handled at a lower level of care (continued vomiting, continued diarrhea, abnormal vital signs) requiring intravenous medication and/or fluids 8. Admission [facility] Chief Complaint: Alcohol and heroin withdrawal symptoms Allergies/Adverse Reactions: Allergies Allergy/AdvReac Type Severity Reaction Status Date / Time No Known Allergies Allergy Verified 08/08/19 04:28 History of Present Illness: 28 years old male with 10 years of heroin dependence and 16 years of alcohol dependence is seeking admission to detox. Patient has been in prevoius detox and reports insignificant period of sobriety. He denies past medical history, suicide attempt and suicidal ideation at this time Exam Limitations: No Limitations - Ebola screening Have you traveled outside of the country in the last 21 days: No Have you had contact with anyone from an Ebola affected area: No Do you have a fever: No - Review of Systems Constitutional: Chills, Malaise, Night Sweats, Changes in sleep EENT: reports: Tearing Respiratory: reports: No Symptoms reported Cardiac: reports: No Symptoms Reported GI: reports: Nausea, Poor Appetite, Poor Fluid Intake, Abdominal cramping : reports: No Symptoms Reported Musculoskeletal: reports: Back Pain Integumentary: reports: Dryness, Flushing Neuro: reports: Headache, Tremors Endocrine: reports: No Symptoms Reported Hematology: reports: No Symptoms Reported Psychiatric: reports: No Sypmtoms Reported, Agitated Other Systems: Reviewed and Negative Patient History - Patient Medical History Hx Anemia: No Hx Asthma: No Hx Chronic Obstructive Pulmonary Disease (COPD): No Hx Cancer: No Hx Cardiac Disorders: No Hx Congestive Heart Failure: No Hx Hypertension: No Hx Hypercholesterolemia: No Hx Pacemaker: No HX Cerebrovascular Accident: No Hx Seizures: No Hx Dementia: No Hx Diabetes: No Hx Gastrointestinal Disorders: No Hx Liver Disease: No Hx Genitourinary Disorders: No Hx Sexually Transmitted Disorders: No Hx Renal Disease (ESRD): No Hx Thyroid Disease: No Hx Human Immunodeficiency Virus (HIV): No Hx Hepatitis C: No Hx Depression: No Hx Suicide Attempt: No Hx Bipolar Disorder: No Hx Schizophrenia: No - Patient Surgical History Past Surgical History: No - PPD History Previous Implant?: Yes Documented Results: Negative w/o proof Implanted On Prior [facility] Admission?: No PPD to be Administered?: Yes - Reproductive History Patient is a Female of Child Bearing Age (11 -55 yrs old): No (male) - Smoking Cessation Smoking history: Current every day smoker Have you smoked in the past 12 months: Yes Aproximately how many cigarettes per day: 20 Hx Chewing Tobacco Use: No Initiated information on smoking cessation: Yes 'Breaking Loose' booklet given: 08/08/19 - Substance & Tx. History Hx Alcohol Use: Yes Hx Substance Use: Yes Substance Use Type: Alcohol, Marijuana, Opiates Hx Substance Use Treatment: Yes - Substances abused Alcohol Substance route: Oral Frequency: Daily Amount used: [place] 1 PINT Age of first use: 14 Date of last use: 08/07/19 Heroin Other (specify): HEROIN Frequency: Daily Amount used: 1 BUNDLE 0R 10 BAGS Age of first use: 25 Date of last use: 08/08/19 Family Disease History - Family Disease History Family History: Denies Admission Physical Exam [facility] - Physical General Appearance: Yes: Moderate Distress, Tremorous, Irritable, Sweating, Anxious HEENTM: Yes: Within Normal Limits Respiratory: Yes: Lungs Clear, Normal Breath Sounds, No Respiratory Distress Neck: Yes: Supple Breast: Yes: Breast Exam Deferred Cardiology: Yes: Regular Rhythm, Regular Rate Abdominal: Yes: Within Normal Limits Genitourinary: Yes: Within Normal Limits Back: Yes: Normal Inspection Musculoskeletal: Yes: Within Normal Limits, Back pain Extremities: Yes: Tremors Neurological: Yes: Normal Mood/Affect, Normal Response Integumentary: Yes: Warm Lymphatic: Yes: Within Normal Limits - Diagnostic (1) Opioid dependence with withdrawal Current Visit: Yes Status: Acute (2) Alcohol dependence with uncomplicated withdrawal Current Visit: Yes Status: Acute (3) Nicotine dependence Current Visit: Yes Status: Acute Qualifiers: Nicotine product type: cigarettes Substance use status: uncomplicated Qualified Code(s): F17.210 - Nicotine dependence, cigarettes, uncomplicated Cleared for Admission [facility] - Detox or Rehab [facility] Level of Care: Medically Managed Detox Regimen/Protocol: Methadone/Librium Inpatient Rehab Admission - Rehab Decision to Admit Inpatient rehab admission?: No
[2019-08-08] MEDS ORDERED: MAGNESIUM HYDROX 2400MG/30ML ORAL SUSPENSION 30 ML CUP PO PRN ×2 (04:46→09:03)
[2019-08-08] MEDS ORDERED: BISMUTH SUBSALICYLATE 524 MG/30 ML UD PO PRN ×2 (04:46→09:03)
[2019-08-08] MEDS ORDERED: NICOTINE POLACRILEX 2 MG GUM BUC PRN (04:46)
[2019-08-08] MEDS ORDERED: hydrOXYzine PAMOATE 25 MG CAPSULE (FP) PO PRN (04:46)
[2019-08-08] MEDS ORDERED: METHOCARBAMOL 500 MG TABLET PO PRN (04:46)
[2019-08-08] MEDS ORDERED: ACETAMINOPHEN 325 MG TABLET (FP) PO PRN ×4 (04:46→09:03)
[2019-08-08] MEDS ORDERED: MAG HYDROX/AL HYDROX/SIMETH 30 ML UNIT-DOSE CUP PO PRN ×2 (04:46→09:03)
[2019-08-08] MEDS ORDERED: MAGNESIUM CITRATE 300 ML BOTTLE PO PRN ×2 (04:46→09:03)
[2019-08-08] MEDS ORDERED: METHADONE HCL 10 MG TABLET (FOR DETOX USE ONLY) PO ONE ×2 (04:46→09:03)
[2019-08-08] MEDS ORDERED: MELATONIN 5 MG TABLETS PO PRN (04:46)
[2019-08-08] MEDS ORDERED: IBUPROFEN 400 MG TABLET (FP) PO PRN ×2 (04:46→09:03)
[2019-08-08] MEDS ORDERED: chlordiazePOXIDE HCL 25 MG CAPSULE PO PRN ×2 (04:46→04:58)
[2019-08-08] MEDS ORDERED: cloNIDine HCL 0.1 MG TABLET PO PRN ×2 (04:46→09:03)
[2019-08-08] MEDS ORDERED: MENTHOL/PHENOL 1 EACH UD MM PRN ×2 (04:46→09:03)
[2019-08-08 04:59] VITALS: BMI 23.1
[2019-08-08] MEDS ORDERED: chlordiazePOXIDE HCL 25 MG CAPSULE PO SCH ×2 (05:00→23:00)
[2019-08-08] MEDS ORDERED: NALOXONE HCL 0.4 MG/ML VIAL IM PRN (09:03)
[2019-08-08] MEDS: PRENATAL VITAMINS W/ FOLIC ACID TABLET (FP) PO SCH (09:34)
[2019-08-08] MEDS: diazePAM 5 MG TABLET PO PRN ×4 (09:41→22:05)
[2019-08-08] MEDS ORDERED: NICOTINE 14 MG/24 HOURS TOPICAL PATCH TD SCH (10:00)
[2019-08-08] MEDS ORDERED: PRENATAL VITAMINS W/ FOLIC ACID TABLET (FP) PO SCH (10:00)
[2019-08-08] MEDS: METHOCARBAMOL 500 MG TABLET PO PRN ×2 (13:13→22:05)
[2019-08-08] MEDS: hydrOXYzine PAMOATE 25 MG CAPSULE (FP) PO PRN (17:36)
[2019-08-08] MEDS ORDERED: THIAMINE HCL 100 MG TABLET (FP) PO SCH (22:00)
[2019-08-08] MEDS: THIAMINE HCL 100 MG TABLET (FP) PO SCH (22:05)
[2019-08-08] MEDS: MELATONIN 5 MG TABLETS PO PRN (22:06)
[2019-08-09] MEDS: diazePAM 5 MG TABLET PO PRN ×4 (04:14→22:41)
[2019-08-09] MEDS: METHOCARBAMOL 500 MG TABLET PO PRN ×3 (04:14→18:52)
[2019-08-09] MEDS ORDERED: chlordiazePOXIDE HCL 25 MG CAPSULE PO SCH (05:00)
[2019-08-09] MEDS ORDERED: METHADONE HCL 10 MG TABLET (FOR DETOX USE ONLY) ONE (08:51)
[2019-08-09] MEDS ORDERED: METHADONE HCL 5 MG TABLET (FOR DETOX USE ONLY) ONE (08:51)
[2019-08-09] MEDS ORDERED: METHADONE (DETOX) 20 MG, METHADONE (DETOX) 5 MG PO ONE ×2 (10:00)
[2019-08-09 10:02] LABS: HEMATOCRIT 41.4 % (35.4-49); HEMOGLOBIN 13.7 GM/dL (11.7-16.9); MCH 30.9 pg (25.7-33.7); MEAN CELL VOLUME 93.6 fl (80-96); MEAN PLT VOLUME 9.8 fl (7.5-11.1); PLATELET COUNT 179 K/MM3 (134-434); RBC 4.43 M/mm3 (4.00-5.60); RDW 13.6 % (11.9-15.9); WHITE BLOOD COUNT 7.3 K/mm3 (4.0-10.0)
[2019-08-09 10:15] LABS: BILIRUBIN,TOTAL 0.2 mg/dL (0.2-1); BLOOD UREA NITROGEN 16.4 mg/dL (7-18); CALCIUM 8.4 mg/dL (8.5-10.1); CREATININE 0.7 mg/dL (0.55-1.3); POTASSIUM 4.2 mmol/L (3.5-5.1); TOT PROT 5.5 g/dl (6.4-8.2)
[2019-08-09] MEDS: PRENATAL VITAMINS W/ FOLIC ACID TABLET (FP) PO SCH (11:26)
--- NOTE | 2019-08-09 11:31 | PN ---
[facility] CIWA - CIWA Score Nausea/Vomitin-No Nausea/No Vomiting Muscle Tremors: 3 Anxiety: 3 Agitation: 3 Paroxysmal Sweats: 3 Orientation: 0-Oriented Tacttile Disturbances: 0-None Auditory Disturbances: 0-None Visual Disturbances: 0-None Headache: 0-None Present CIWA-Ar Total Score: 12 [facility] COWS - Scale Resting Pulse: 0= [place] 80 or Below Sweatin= Chills/Flushing Restless Observation: 1= Difficult to Sit Still Pupil Size: 0= Normal to Room Light Bone or Joint Aches: 2= Severe Diffuse Aches Runny Nose/ Eye Tearin= Nasal Congestion GI Upset > 30mins: 2= Nausea/Diarrhea Tremor Observation of Outstretched Hands: 2= Slight Tremor Visible Yawning Observation: 2= >3x During Session Anxiety or Irritability: 2=Irritable/Anxious Goose Flesh Skin: 0=Smooth Skin COWS Score: 13 S Progress Note (SOAP) Subjective: sweats shakes interrupted sleep body aches insomnia nausea restless Objective: 08/09/19 11:34 Vital Signs Temperature 97.2 F L 08/09/19 06:00 Pulse Rate 72 08/09/19 06:00 Respiratory Rate 18 08/09/19 06:00 Blood Pressure 94/54 L 08/09/19 06:00 O2 Sat by Pulse Oximetry (%) Laboratory Tests 08/09/19 08/09/19 08/09/19 07:30 07:30 07:30 WBC 7.3 RBC 4.43 Hgb 13.7 Hct 41.4 MCV 93.6 MCH 30.9 MCHC 33.0 RDW 13.6 Plt Count 179 MPV 9.8 Sodium 140 Potassium 4.2 Chloride 108 H Carbon Dioxide 29 Anion Gap 3 L BUN 16.4 Creatinine 0.7 Est GFR (CKD-EPI)AfAm 146.77 Est GFR (CKD-EPI)NonAf 126.64 Random Glucose 87 Calcium 8.4 L Total Bilirubin 0.2 AST 14 L ALT 25 Alkaline Phosphatase 50 Total Protein 5.5 L Albumin 3.0 L RPR Titer Nonreactive labs noted aaox3 ambulating no acute distress Assessment: 08/09/19 11:35 withdrawals sx Plan: continue detox increase fluids zofran prn motrin 800mg prn tid ensure plus 120ml po bid melatonin 10mg qhs
[2019-08-09] MEDS ORDERED: IBUPROFEN 400 MG TABLET (FP) PO PRN (11:37)
[2019-08-09] MEDS ORDERED: ONDANSETRON *ODT* 4 MG TABLET SL PRN (11:38)
--- NOTE | 2019-08-09 11:43 | PN ---
[facility] Progress Note Note: [facility] *LIVE* [facility] History and Physical Patient Name: JARED RIVERA Date of : 86 Patient Status: Referred Attending Provider: Dean Jj Date: 08/08/19 04:25 Initialization Date: 08/08/19 04:25 COWS - Scale Resting Pulse: 0= [place] 80 or Below Sweatin= Chills/Flushing Restless Observation: 1= Difficult to Sit Still Pupil Size: 1= Pupils >than Normal Bone or Joint Aches: 2= Severe Diffuse Aches Runny Nose/ Eye Tearin= Runny Nose/Eyes GI Upset > 30mins: 1= Stomach Cramp Tremor Observation: 2= Slight Tremor Visible Yawning Observation: 1= 1-2x During Session Anxiety or Irritability: 4=Extreme Anxiety Goose Flesh Skin: 0=Smooth Skin COWS Score: 15 CIWA Score Nausea/Vomitin-Mild Nausea/No Vomiting Muscle Tremors: 3 Anxiety: 2 Agitation: 2 Paroxysmal Sweats: 3 Orientation: 2-Disoriented Date<2 days Tacttile Disturbances: 0-None Auditory Disturbances: 0-None Visual Disturbances: 0-None Headache: 4-Moderately Severe CIWA-Ar Total Score: 17 - Admission Criteria OASAS Guidelines: Admission for Medically Managed Detox: Requires at least one of the followin. CIWA greater than 12 2. Seizures within the past 24 hours 3. Delirium tremens within the past 24 hours 4. Hallucinations within the past 24 hours 5. Acute intervention needed for co occurring medical disorder 6. Acute intervention needed for co occurring psychiatric disorder 7. Severe withdrawal that cannot be handled at a lower level of care (continued vomiting, continued diarrhea, abnormal vital signs) requiring intravenous medication and/or fluids 8. Admission ROS [facility] - HPI Chief Complaint: Alcohol and heroin withdrawal symptoms Allergies/Adverse Reactions: Allergies Allergy/AdvReac Type Severity Reaction Status Date / Time No Known Allergies Allergy Verified 08/08/19 04:28 History of Present Illness: 28 years old male with 10 years of heroin dependence and 16 years of alcohol dependence is seeking admission to detox. Patient has been in prevoius detox and reports insignificant period of sobriety. He denies past medical history, suicide attempt and suicidal ideation at this time Exam Limitations: No Limitations - Ebola screening Have you traveled outside of the country in the last 21 days: No Have you had contact with anyone from an Ebola affected area: No Do you have a fever: No - Review of Systems Constitutional: Chills, Malaise, Night Sweats, Changes in sleep EENT: reports: Tearing Respiratory: reports: No Symptoms reported Cardiac: reports: No Symptoms Reported GI: reports: Nausea, Poor Appetite, Poor Fluid Intake, Abdominal cramping : reports: No Symptoms Reported Musculoskeletal: reports: Back Pain Integumentary: reports: Dryness, Flushing Neuro: reports: Headache, Tremors Endocrine: reports: No Symptoms Reported Hematology: reports: No Symptoms Reported Psychiatric: reports: No Sypmtoms Reported, Agitated Other Systems: Reviewed and Negative Patient History - Patient Medical History Hx Anemia: No Hx Asthma: No Hx Chronic Obstructive Pulmonary Disease (COPD): No Hx Cancer: No Hx Cardiac Disorders: No Hx Congestive Heart Failure: No Hx Hypertension: No Hx Hypercholesterolemia: No Hx Pacemaker: No HX Cerebrovascular Accident: No Hx Seizures: No Hx Dementia: No Hx Diabetes: No Hx Gastrointestinal Disorders: No Hx Liver Disease: No Hx Genitourinary Disorders: No Hx Sexually Transmitted Disorders: No Hx Renal Disease (ESRD): No Hx Thyroid Disease: No Hx Human Immunodeficiency Virus (HIV): No Hx Hepatitis C: No Hx Depression: No Hx Suicide Attempt: No Hx Bipolar Disorder: No Hx Schizophrenia: No - Patient Surgical History Past Surgical History: No - PPD History Previous Implant?: Yes Documented Results: Negative w/o proof Implanted On Prior [facility] Admission?: No PPD to be Administered?: Yes - Reproductive History Patient is a Female of Child Bearing Age (11 -55 yrs old): No (male) - Smoking Cessation Smoking history: Current every day smoker Have you smoked in the past 12 months: Yes Aproximately how many cigarettes per day: 20 Hx Chewing Tobacco Use: No Initiated information on smoking cessation: Yes 'Breaking Loose' booklet given: 08/08/19 - Substance & Tx. History Hx Alcohol Use: Yes Hx Substance Use: Yes Substance Use Type: Alcohol, Marijuana, Opiates Hx Substance Use Treatment: Yes - Substances abused Alcohol Substance route: Oral Frequency: Daily Amount used: [place] 1 PINT Age of first use: 14 Date of last use: 08/07/19 Heroin Other (specify): HEROIN Frequency: Daily Amount used: 1 BUNDLE 0R 10 BAGS Age of first use: 25 Date of last use: 08/08/19 Family Disease History - Family Disease History Family History: Denies Admission Physical Exam [facility] - Physical General Appearance: Yes: Moderate Distress, Tremorous, Irritable, Sweating, Anxious HEENTM: Yes: Within Normal Limits Respiratory: Yes: Lungs Clear, Normal Breath Sounds, No Respiratory Distress Neck: Yes: Supple Breast: Yes: Breast Exam Deferred Cardiology: Yes: Regular Rhythm, Regular Rate Abdominal: Yes: Within Normal Limits Genitourinary: Yes: Within Normal Limits Back: Yes: Normal Inspection Musculoskeletal: Yes: Within Normal Limits, Back pain Extremities: Yes: Tremors Neurological: Yes: Normal Mood/Affect, Normal Response Integumentary: Yes: Warm Lymphatic: Yes: Within Normal Limits - Diagnostic (1) Opioid dependence with withdrawal Current Visit: Yes Status: Acute (2) Alcohol dependence with uncomplicated withdrawal Current Visit: Yes Status: Acute (3) Nicotine dependence Current Visit: Yes Status: Acute Qualifiers: Nicotine product type: cigarettes Substance use status: uncomplicated Qualified Code(s): F17.210 - Nicotine dependence, cigarettes, uncomplicated Cleared for Admission [facility] - Detox or Rehab [facility] Level of Care: Medically Managed Detox Regimen/Protocol: Methadone/Librium Inpatient Rehab Admission - Rehab Decision to Admit Inpatient rehab admission?: No
[2019-08-09] MEDS: hydrOXYzine PAMOATE 25 MG CAPSULE (FP) PO PRN (13:22)
[2019-08-09] MEDS: THIAMINE HCL 100 MG TABLET (FP) PO SCH (22:38)
[2019-08-10] MEDS ORDERED: chlordiazePOXIDE HCL 10 MG CAPSULE PO PRN
[2019-08-10] MEDS ORDERED: chlordiazePOXIDE HCL 25 MG CAPSULE PO SCH (05:00)
[2019-08-10] MEDS ORDERED: chlordiazePOXIDE HCL 10 MG CAPSULE PO SCH (05:00)
[2019-08-10] MEDS ORDERED: METHADONE HCL 10 MG TABLET (FOR DETOX USE ONLY) PO ONE ×2 (10:00)
[2019-08-10] MEDS: PRENATAL VITAMINS W/ FOLIC ACID TABLET (FP) PO SCH (10:35)
[2019-08-10] MEDS: METHOCARBAMOL 500 MG TABLET PO PRN ×2 (10:40→20:32)
[2019-08-10] MEDS: diazePAM 5 MG TABLET PO PRN ×3 (10:44→20:32)
--- NOTE | 2019-08-10 12:02 | PN ---
[facility] COWS - Scale Resting Pulse: 0= [place] 80 or Below Sweatin=Flushed/Facial Moisture Restless Observation: 1= Difficult to Sit Still Pupil Size: 0= Normal to Room Light Bone or Joint Aches: 2= Severe Diffuse Aches Runny Nose/ Eye Tearin= Runny Nose/Eyes GI Upset > 30mins: 0= None Tremor Observation of Outstretched Hands: 1= Tremor [place], Not Seen Yawning Observation: 1= 1-2x During Session Anxiety or Irritability: 2=Irritable/Anxious Goose Flesh Skin: 0=Smooth Skin COWS Score: 11 S Progress Note (SOAP) Subjective: agitation sweats body aches irritable tired Objective: 08/10/19 12:02 Vital Signs Temperature 96.8 F L 08/10/19 06:00 Pulse Rate 64 08/10/19 06:00 Respiratory Rate 18 08/10/19 06:00 Blood Pressure 105/63 08/10/19 06:00 O2 Sat by Pulse Oximetry (%) Laboratory Tests 08/09/19 08/09/19 08/09/19 07:30 07:30 07:30 WBC 7.3 RBC 4.43 Hgb 13.7 Hct 41.4 MCV 93.6 MCH 30.9 MCHC 33.0 RDW 13.6 Plt Count 179 MPV 9.8 Sodium 140 Potassium 4.2 Chloride 108 H Carbon Dioxide 29 Anion Gap 3 L BUN 16.4 Creatinine 0.7 Est GFR (CKD-EPI)AfAm 146.77 Est GFR (CKD-EPI)NonAf 126.64 Random Glucose 87 Calcium 8.4 L Total Bilirubin 0.2 AST 14 L ALT 25 Alkaline Phosphatase 50 Total Protein 5.5 L Albumin 3.0 L RPR Titer Nonreactive labs noted aaox3 ambulating no acute distress Assessment: 08/10/19 12:02 withdrawal sx Plan: continue detox increase fluids will continue with valium 10mg prn as per pt request.
[2019-08-10] MEDS: hydrOXYzine PAMOATE 25 MG CAPSULE (FP) PO PRN (13:21)
[2019-08-10] MEDS: THIAMINE HCL 100 MG TABLET (FP) PO SCH (22:27)
[2019-08-10] MEDS: MELATONIN 5 MG TABLETS PO PRN (22:27)
[2019-08-11] MEDS ORDERED: chlordiazePOXIDE HCL 10 MG CAPSULE PO PRN
[2019-08-11] MEDS ORDERED: chlordiazePOXIDE HCL 10 MG CAPSULE PO SCH ×2 (05:00)
[2019-08-11] MEDS ORDERED: METHADONE HCL 10 MG TABLET (FOR DETOX USE ONLY) ONE (08:51)
[2019-08-11] MEDS ORDERED: METHADONE HCL 5 MG TABLET (FOR DETOX USE ONLY) ONE (08:51)
[2019-08-11] MEDS: PRENATAL VITAMINS W/ FOLIC ACID TABLET (FP) PO SCH (09:58)
[2019-08-11] MEDS: METHOCARBAMOL 500 MG TABLET PO PRN ×3 (10:00→22:49)
[2019-08-11] MEDS ORDERED: METHADONE (DETOX) 10 MG, METHADONE (DETOX) 5 MG PO ONE ×2 (10:00)
[2019-08-11] MEDS: diazePAM 5 MG TABLET PO PRN ×3 (10:00→22:48)
--- NOTE | 2019-08-11 10:04 | PN ---
[facility] COWS - Scale Resting Pulse: 0= [place] 80 or Below Sweatin= Chills/Flushing Restless Observation: 1= Difficult to Sit Still Pupil Size: 0= Normal to Room Light Bone or Joint Aches: 2= Severe Diffuse Aches Runny Nose/ Eye Tearin= None GI Upset > 30mins: 0= None Tremor Observation of Outstretched Hands: 2= Slight Tremor Visible Yawning Observation: 1= 1-2x During Session Anxiety or Irritability: 2=Irritable/Anxious Goose Flesh Skin: 0=Smooth Skin COWS Score: 9 [facility] Progress Note (SOAP) Subjective: sweats shakes interrupted sleep body aches Objective: 08/11/19 10:03 Vital Signs Temperature 96.2 F L 08/11/19 09:30 Pulse Rate 77 08/11/19 09:30 Respiratory Rate 18 08/11/19 09:30 Blood Pressure 118/66 08/11/19 09:30 O2 Sat by Pulse Oximetry (%) Laboratory Tests 08/09/19 08/09/19 08/09/19 07:30 07:30 07:30 WBC 7.3 RBC 4.43 Hgb 13.7 Hct 41.4 MCV 93.6 MCH 30.9 MCHC 33.0 RDW 13.6 Plt Count 179 MPV 9.8 Sodium 140 Potassium 4.2 Chloride 108 H Carbon Dioxide 29 Anion Gap 3 L BUN 16.4 Creatinine 0.7 Est GFR (CKD-EPI)AfAm 146.77 Est GFR (CKD-EPI)NonAf 126.64 Random Glucose 87 Calcium 8.4 L Total Bilirubin 0.2 AST 14 L ALT 25 Alkaline Phosphatase 50 Total Protein 5.5 L Albumin 3.0 L RPR Titer Nonreactive labs noted aaox3 ambulating no acute distress Assessment: 08/11/19 10:03 withdrawal sx Plan: continue detox increase fluids trazadone 100mg qhs
[2019-08-11] MEDS: hydrOXYzine PAMOATE 25 MG CAPSULE (FP) PO PRN ×2 (15:14→22:48)
[2019-08-11] MEDS ORDERED: traZODone HCL 50 MG TABLET (FP) PO SCH (22:00)
[2019-08-11] MEDS: THIAMINE HCL 100 MG TABLET (FP) PO SCH (22:43)
[2019-08-11] MEDS: MELATONIN 5 MG TABLETS PO PRN (22:43)
[2019-08-12] MEDS ORDERED: chlordiazePOXIDE HCL 10 MG CAPSULE PO SCH (05:00)
[2019-08-12] MEDS ORDERED: chlordiazePOXIDE HCL 10 MG CAPSULE PO ONE (05:00)
[2019-08-12] MEDS: hydrOXYzine PAMOATE 25 MG CAPSULE (FP) PO PRN ×2 (06:15→15:19)
[2019-08-12] MEDS: diazePAM 5 MG TABLET PO PRN ×3 (06:15→22:15)
[2019-08-12] MEDS: METHOCARBAMOL 500 MG TABLET PO PRN ×3 (06:17→22:16)
[2019-08-12] MEDS ORDERED: METHADONE HCL 10 MG TABLET (FOR DETOX USE ONLY) PO ONE ×2 (10:00)
[2019-08-12] MEDS: PRENATAL VITAMINS W/ FOLIC ACID TABLET (FP) PO SCH (10:18)
--- NOTE | 2019-08-12 14:37 | PN ---
[facility] COWS - Scale Resting Pulse: 0= [place] 80 or Below Sweatin= Chills/Flushing Restless Observation: 1= Difficult to Sit Still Pupil Size: 0= Normal to Room Light Bone or Joint Aches: 1= Mild Discomfort Runny Nose/ Eye Tearin= Nasal Congestion GI Upset > 30mins: 0= None Tremor Observation of Outstretched Hands: 0= None Yawning Observation: 0= None Anxiety or Irritability: 0= None Goose Flesh Skin: 0=Smooth Skin COWS Score: 4 S Progress Note (SOAP) Subjective: interrupted sleep irritable Objective: 08/12/19 14:36 Vital Signs Temperature 96.3 F L 08/12/19 13:56 Pulse Rate 85 08/12/19 13:56 Respiratory Rate 18 08/12/19 13:56 Blood Pressure 120/61 08/12/19 13:56 O2 Sat by Pulse Oximetry (%) aaox3 ambulating no acute distress Assessment: 08/12/19 14:36 mild withdrawals Plan: continue detox trazadone 100mg x one hs d/c in am
[2019-08-12] MEDS ORDERED: traZODone HCL 100 MG TABLET (FP) PO ONE (22:00)
[2019-08-12] MEDS ORDERED: traZODone HCL 100 MG TABLET (FP) PO SCH (22:00)
[2019-08-12] MEDS: THIAMINE HCL 100 MG TABLET (FP) PO SCH (22:16)
[2019-08-13] MEDS ORDERED: chlordiazePOXIDE HCL 10 MG CAPSULE PO ONE (05:00)
[2019-08-13] MEDS ORDERED: METHADONE HCL 5 MG TABLET (FOR DETOX USE ONLY) PO ONE ×2 (06:00)
[2019-08-13 07:52] VITALS: BP 109/58; PULSE 66; TEMP 96.4
--- NOTE | 2019-08-13 08:35 | DS ---
[facility] Detox Discharge Summary Admission Date: 08/08/19 Discharge Date: 08/13/19 - History Present History: Alcohol Dependence, Opioid Dependence, Pcp Dependence - Physical Exam Results Vital Signs: Vital Signs Temperature 96.4 F L 08/13/19 07:51 Pulse Rate 66 08/13/19 07:51 Respiratory Rate 18 08/13/19 07:51 Blood Pressure 109/58 L 08/13/19 07:51 O2 Sat by Pulse Oximetry (%) Pertinent Admission Physical Exam Findings: pt arrived in withdrawals Laboratory Tests 08/09/19 08/09/19 08/09/19 07:30 07:30 07:30 WBC 7.3 RBC 4.43 Hgb 13.7 Hct 41.4 MCV 93.6 MCH 30.9 MCHC 33.0 RDW 13.6 Plt Count 179 MPV 9.8 Sodium 140 Potassium 4.2 Chloride 108 H Carbon Dioxide 29 Anion Gap 3 L BUN 16.4 Creatinine 0.7 Est GFR (CKD-EPI)AfAm 146.77 Est GFR (CKD-EPI)NonAf 126.64 Random Glucose 87 Calcium 8.4 L Total Bilirubin 0.2 AST 14 L ALT 25 Alkaline Phosphatase 50 Total Protein 5.5 L Albumin 3.0 L RPR Titer Nonreactive HIV 1&2 Ag/Ab, 4th Gen 08/11/19 08:00 WBC RBC Hgb Hct MCV MCH MCHC RDW Plt Count MPV Sodium Potassium Chloride Carbon Dioxide Anion Gap BUN Creatinine Est GFR (CKD-EPI)AfAm Est GFR (CKD-EPI)NonAf Random Glucose Calcium Total Bilirubin AST ALT Alkaline Phosphatase Total Protein Albumin RPR Titer HIV 1&2 Ag/Ab, 4th Gen Non reactive today pt is aaox3 ambulating no acute distress - Treatment Hospital Course: Detox Protocol Followed, Detoxed Safely, Responded well, Discharged Condition Good, Rehab Referral Accepted - Diagnosis (1) Alcohol dependence with uncomplicated withdrawal Status: Chronic (2) Bipolar disorder Status: Acute (3) History of seizures as a child Status: Suspected (4) Nicotine dependence Status: Chronic Qualifiers: Nicotine product type: cigarettes Substance use status: uncomplicated Qualified Code(s): F17.210 - Nicotine dependence, cigarettes, uncomplicated (5) Opioid dependence with withdrawal Status: Chronic (6) Substance-induced sleep disorder Status: Acute (7) Anxiety Status: Chronic (8) Bipolar disorder Status: Chronic Qualifiers: (9) Depression Status: Chronic Qualifiers: (10) History of bipolar disorder Status: Chronic (11) Insomnia Status: Chronic Qualifiers: (12) Nicotine dependence Status: Chronic Qualifiers: Nicotine product type: cigarettes Substance use status: uncomplicated Qualified Code(s): F17.210 - Nicotine dependence, cigarettes, uncomplicated (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
== END 2019-08-13 06:45 | disposition home or self-care (01) | DRG 773 ==
LOC: MERGE 04:05 → YASAS 04:05 → Y6N 05:11 → EDSTATUS 08-09 13:33
PROVIDERS: ADMIT Surgery; ATTEND Surgery
PROC: HZ2ZZZZ Detoxification Services for Substance Abuse Treatment (ICD-10-PCS; principal; 2019-08-08)
DX: F11.23 Opioid dependence with withdrawal (principal); F10.230 Alcohol dependence with withdrawal, uncomplicated; F16.20 Hallucinogen dependence, uncomplicated; F17.210 Nicotine dependence, cigarettes, uncomplicated; F19.24 Other psychoactive substance dependence with psychoactive substance-induced mood disorder; F19.282 Other psychoactive substance dependence with psychoactive substance-induced sleep disorder; F31.9 Bipolar disorder, unspecified; F41.9 Anxiety disorder, unspecified; G47.00 Insomnia, unspecified; Z86.69 Personal history of other diseases of the nervous system and sense organs
CPT/HCPCS: 36415; 80053; 85027; 86593; 87389; J0735

== ENCOUNTER 2020-11-27 15:43 | Inpatient (IN) | payer OTHER ==
[2020-11-27 17:01] VITALS: BMI 26.4
[2020-11-27] MEDS ORDERED: ONDANSETRON *ODT* 4 MG TABLET SL PRN (17:01)
[2020-11-27] MEDS ORDERED: METHOCARBAMOL 500 MG TABLET PO PRN (17:01)
[2020-11-27] MEDS ORDERED: cloNIDine HCL 0.1 MG TABLET PO PRN (17:01)
[2020-11-27] MEDS ORDERED: ACETAMINOPHEN 325 MG TABLET (FP) PO PRN ×2 (17:01)
[2020-11-27] MEDS ORDERED: MAGNESIUM HYDROX 2400MG/30ML ORAL SUSPENSION 30 ML CUP PO PRN (17:01)
[2020-11-27] MEDS ORDERED: MENTHOL/PHENOL 1 EACH UD MM PRN (17:01)
[2020-11-27] MEDS ORDERED: BISMUTH SUBSALICYLATE 524 MG/30 ML PO PRN (17:01)
[2020-11-27] MEDS ORDERED: MAG HYDROX/AL HYDROX/SIMETH 30 ML UNIT-DOSE CUP PO PRN (17:01)
[2020-11-27] MEDS ORDERED: MAGNESIUM CITRATE 300 ML BOTTLE PO PRN (17:01)
[2020-11-27] MEDS ORDERED: IBUPROFEN 400 MG TABLET (FP) PO PRN (17:01)
[2020-11-27] MEDS: hydrOXYzine PAMOATE 25 MG CAPSULE (FP) PO SCH ×2 (17:56→22:11)
[2020-11-27] MEDS: NICOTINE 21 MG/24 HOURS TOPICAL PATCH TD SCH (17:57)
[2020-11-27] MEDS: chlordiazePOXIDE HCL 25 MG CAPSULE PO PRN (17:57)
[2020-11-27] MEDS ORDERED: methaDONE HCL 10 MG TABLET (FOR DETOX USE ONLY) PO ONE (18:00)
[2020-11-27] MEDS ORDERED: MELATONIN 5 MG TABLETS PO SCH (22:00)
[2020-11-27] MEDS: THIAMINE HCL 100 MG TABLET (FP) PO SCH (22:10)
[2020-11-27] MEDS: chlordiazePOXIDE HCL 25 MG CAPSULE PO SCH (22:11)
[2020-11-28] MEDS: chlordiazePOXIDE HCL 25 MG CAPSULE PO PRN (00:39)
[2020-11-28] MEDS: chlordiazePOXIDE HCL 25 MG CAPSULE PO SCH ×4 (05:31→22:16)
[2020-11-28] MEDS: hydrOXYzine PAMOATE 25 MG CAPSULE (FP) PO SCH ×5 (05:32→22:16)
[2020-11-28] MEDS ORDERED: methaDONE HCL 10 MG TABLET (FOR DETOX USE ONLY) ONE (08:54)
[2020-11-28] MEDS: PRENATAL VITAMINS W/ FOLIC ACID TABLET (FP) PO SCH (10:15)
[2020-11-28] MEDS: SERTRALINE HCL 50 MG TABLET (FP) PO SCH (10:17)
[2020-11-28] MEDS: NICOTINE 21 MG/24 HOURS TOPICAL PATCH TD SCH (10:18)
[2020-11-28 10:52] LABS: CALCIUM 8.7 mg/dL (8.5-10.1); HEMATOCRIT 42.1 % (35.4-49); MCH 31.2 pg (25.7-33.7); MCHC 33.2 g/dl (32.0-35.9); MEAN CELL VOLUME 93.8 fl (80-96); MEAN PLT VOLUME 9.5 fl (7.5-11.1); PLATELET COUNT 244 K/MM3 (134-434); RBC 4.49 M/mm3 (4.00-5.60); RDW 14.6 % (11.9-15.9); WHITE BLOOD COUNT 9.3 K/mm3 (4.0-10.0)
[2020-11-28 10:53] LABS: ALBUMIN 3.5 g/dl (3.4-5.0); BLOOD UREA NITROGEN 15.5 mg/dL (7-18)
[2020-11-28 10:57] LABS: BILIRUBIN,TOTAL 0.3 mg/dL (0.2-1); TOT PROT 6.8 g/dl (6.4-8.2)
[2020-11-28] MEDS: MELATONIN 5 MG TABLETS PO SCH (22:16)
[2020-11-28] MEDS: THIAMINE HCL 100 MG TABLET (FP) PO SCH (22:16)
[2020-11-29] MEDS: chlordiazePOXIDE HCL 25 MG CAPSULE PO SCH ×4 (05:29→22:09)
[2020-11-29] MEDS: hydrOXYzine PAMOATE 25 MG CAPSULE (FP) PO SCH ×5 (05:29→22:09)
[2020-11-29] MEDS: NICOTINE POLACRILEX 2 MG GUM BUC PRN (05:30)
[2020-11-29] MEDS ORDERED: methaDONE HCL 10 MG TABLET (FOR DETOX USE ONLY) PO ONE (10:00)
[2020-11-29] MEDS: SERTRALINE HCL 50 MG TABLET (FP) PO SCH (10:03)
[2020-11-29] MEDS: PRENATAL VITAMINS W/ FOLIC ACID TABLET (FP) PO SCH (10:03)
[2020-11-29] MEDS: NICOTINE 21 MG/24 HOURS TOPICAL PATCH TD SCH (10:05)
[2020-11-29] MEDS: THIAMINE HCL 100 MG TABLET (FP) PO SCH (22:09)
[2020-11-29] MEDS: MELATONIN 5 MG TABLETS PO SCH (22:09)
[2020-11-30] MEDS ORDERED: chlordiazePOXIDE HCL 10 MG CAPSULE PO PRN
[2020-11-30] MEDS: chlordiazePOXIDE HCL 10 MG CAPSULE PO SCH ×4 (05:22→22:20)
[2020-11-30] MEDS: hydrOXYzine PAMOATE 25 MG CAPSULE (FP) PO SCH ×5 (05:22→22:20)
[2020-11-30] MEDS ORDERED: methaDONE HCL 10 MG TABLET (FOR DETOX USE ONLY) ONE (09:12)
[2020-11-30] MEDS: SERTRALINE HCL 50 MG TABLET (FP) PO SCH (10:10)
[2020-11-30] MEDS: PRENATAL VITAMINS W/ FOLIC ACID TABLET (FP) PO SCH (10:10)
[2020-11-30] MEDS: NICOTINE 21 MG/24 HOURS TOPICAL PATCH TD SCH (10:11)
[2020-11-30] MEDS: MELATONIN 5 MG TABLETS PO SCH (22:20)
[2020-11-30] MEDS: THIAMINE HCL 100 MG TABLET (FP) PO SCH (22:20)
[2020-12-01] MEDS: chlordiazePOXIDE HCL 10 MG CAPSULE PO SCH ×2 (05:19→17:30)
[2020-12-01] MEDS: hydrOXYzine PAMOATE 25 MG CAPSULE (FP) PO SCH ×5 (05:19→22:22)
[2020-12-01] MEDS: NICOTINE POLACRILEX 2 MG GUM BUC PRN (09:17)
[2020-12-01] MEDS: NICOTINE 21 MG/24 HOURS TOPICAL PATCH TD SCH (09:17)
[2020-12-01] MEDS: PRENATAL VITAMINS W/ FOLIC ACID TABLET (FP) PO SCH (09:17)
[2020-12-01] MEDS: SERTRALINE HCL 50 MG TABLET (FP) PO SCH (09:17)
[2020-12-01] MEDS ORDERED: methaDONE HCL 10 MG TABLET (FOR DETOX USE ONLY) PO ONE (10:00)
[2020-12-01] MEDS: MELATONIN 5 MG TABLETS PO SCH (22:22)
[2020-12-01] MEDS: THIAMINE HCL 100 MG TABLET (FP) PO SCH (22:22)
[2020-12-02] MEDS ORDERED: chlordiazePOXIDE HCL 10 MG CAPSULE PO ONE (05:00)
[2020-12-02] MEDS: hydrOXYzine PAMOATE 25 MG CAPSULE (FP) PO SCH ×2 (05:13→09:34)
[2020-12-02] MEDS: SERTRALINE HCL 50 MG TABLET (FP) PO SCH (09:34)
[2020-12-02] MEDS: PRENATAL VITAMINS W/ FOLIC ACID TABLET (FP) PO SCH (09:34)
[2020-12-02] MEDS: NICOTINE 21 MG/24 HOURS TOPICAL PATCH TD SCH (09:34)
[2020-12-02 10:40] VITALS: BP 133/72; PULSE 78; TEMP 97.7
== END 2020-12-02 12:18 | disposition other institution (70) | DRG 773 ==
LOC: YASAS 15:43 → Y3N 16:34
PROVIDERS: ADMIT Allergy & Immunology; ATTEND Allergy & Immunology
PROC: HZ2ZZZZ Detoxification Services for Substance Abuse Treatment (ICD-10-PCS; principal; 2020-11-27)
DX: F11.23 Opioid dependence with withdrawal (principal); F10.230 Alcohol dependence with withdrawal, uncomplicated; F14.20 Cocaine dependence, uncomplicated; F16.20 Hallucinogen dependence, uncomplicated; F17.210 Nicotine dependence, cigarettes, uncomplicated; F19.282 Other psychoactive substance dependence with psychoactive substance-induced sleep disorder; F19.24 Other psychoactive substance dependence with psychoactive substance-induced mood disorder; F41.1 Generalized anxiety disorder; F32.9 Major depressive disorder, single episode, unspecified; R63.8 Other symptoms and signs concerning food and fluid intake; Z91.5 Personal history of self-harm; Z87.828 Personal history of other (healed) physical injury and trauma; Z56.0 Unemployment, unspecified; Z59.0 Homelessness
CPT/HCPCS: 36415; 71046-TC-FY; 80053; 85027; 86780; 93005; 93010; C9803; U0003

== ENCOUNTER 2020-12-30 17:16 | Inpatient (IN) | payer OTHER ==
[2020-12-30 18:45] VITALS: BMI 27.4
[2020-12-30] MEDS ORDERED: cloNIDine HCL 0.1 MG TABLET PO PRN (21:19)
[2020-12-30] MEDS ORDERED: NALOXONE HCL 0.4 MG/ML VIAL IM PRN (21:19)
[2020-12-30] MEDS ORDERED: ACETAMINOPHEN 325 MG TABLET (FP) PO PRN ×2 (21:19)
[2020-12-30] MEDS ORDERED: DICYCLOMINE HCL 10 MG CAPSULE PO PRN (21:19)
[2020-12-30] MEDS ORDERED: MAGNESIUM CITRATE 300 ML BOTTLE PO PRN (21:19)
[2020-12-30] MEDS ORDERED: MAGNESIUM HYDROX 2400MG/30ML ORAL SUSPENSION 30 ML CUP PO PRN (21:19)
[2020-12-30] MEDS ORDERED: IBUPROFEN 400 MG TABLET (FP) PO PRN (21:19)
[2020-12-30] MEDS ORDERED: MAG HYDROX/AL HYDROX/SIMETH 30 ML UNIT-DOSE CUP PO PRN (21:19)
[2020-12-30] MEDS ORDERED: MENTHOL/PHENOL 1 EACH UD MM PRN (21:19)
[2020-12-30] MEDS ORDERED: P-EPHED 60MG/TRIPROLIDI 2.5MG TABLET PO PRN (21:19)
[2020-12-30] MEDS ORDERED: guaiFENesin 200 MG/10 ML 10 ML UNIT-DOSE CUPS PO PRN (21:19)
[2020-12-30] MEDS ORDERED: BISMUTH SUBSALICYLATE 524 MG/30 ML UD PO PRN (21:19)
[2020-12-30] MEDS ORDERED: METHADONE HCL 10 MG TABLET (FOR DETOX USE ONLY) PO ONE (21:19)
[2020-12-31] MEDS: MELATONIN 5 MG TABLETS PO SCH ×2 (00:47→22:04)
[2020-12-31] MEDS ORDERED: METHADONE HCL 10 MG TABLET (FOR DETOX USE ONLY) ONE ×2 (00:47→09:09)
[2020-12-31] MEDS: THIAMINE HCL 100 MG TABLET (FP) PO SCH ×2 (00:47→22:03)
[2020-12-31] MEDS: diazePAM 5 MG TABLET PO PRN ×5 (00:49→22:04)
[2020-12-31] MEDS ORDERED: diazePAM 5 MG TABLET ONE ×2 (00:49→07:25)
[2020-12-31] MEDS ORDERED: METHADONE HCL 5 MG TABLET (FOR DETOX USE ONLY) ONE (09:10)
[2020-12-31] MEDS ORDERED: NICOTINE 21 MG/24 HOURS TOPICAL PATCH ONE (09:16)
[2020-12-31] MEDS: PRENATAL VITAMINS W/ FOLIC ACID TABLET (FP) PO SCH (09:25)
[2020-12-31] MEDS: NICOTINE 21 MG/24 HOURS TOPICAL PATCH TD SCH (09:26)
[2020-12-31] MEDS ORDERED: METHADONE (DETOX) 20 MG, METHADONE (DETOX) 5 MG PO ONE (10:00)
[2020-12-31 12:07] LABS: POTASSIUM 4.1 mmol/L (3.5-5.1)
[2020-12-31 12:18] LABS: ALBUMIN 3.9 g/dl (3.4-5.0)
[2020-12-31 12:19] LABS: BLOOD UREA NITROGEN 14.6 mg/dL (7-18)
[2020-12-31 12:23] LABS: BILIRUBIN,TOTAL 1.1 mg/dL (0.2-1); TOT PROT 7.4 g/dl (6.4-8.2)
[2020-12-31 13:05] LABS: HIV INTERPRETATION NEGATIVE (NEGATIVE)
[2020-12-31] MEDS: NICOTINE POLACRILEX 2 MG GUM BUC PRN (15:05)
[2020-12-31 19:51] LABS: HEMATOCRIT 47.2 % (35.4-49); HEMOGLOBIN 15.7 GM/dL (11.7-16.9); MCH 31.4 pg (25.7-33.7); MCHC 33.2 g/dl (32.0-35.9); MEAN CELL VOLUME 94.6 fl (80-96); MEAN PLT VOLUME 9.8 fl (7.5-11.1); PLATELET COUNT 224 K/MM3 (134-434); RBC 4.99 M/mm3 (4.00-5.60); RDW 14.8 % (11.9-15.9); WHITE BLOOD COUNT 8.9 K/mm3 (4.0-10.0)
[2020-12-31] MEDS: SUVOREXANT 10 MG TABLET PO PRN (22:05)
[2021-01-01] MEDS: diazePAM 5 MG TABLET PO PRN ×5 (05:51→22:07)
[2021-01-01] MEDS ORDERED: METHADONE HCL 10 MG TABLET (FOR DETOX USE ONLY) PO ONE (10:00)
[2021-01-01] MEDS: PRENATAL VITAMINS W/ FOLIC ACID TABLET (FP) PO SCH (10:05)
[2021-01-01] MEDS: METHOCARBAMOL 500 MG TABLET PO PRN (10:06)
[2021-01-01] MEDS: NICOTINE 21 MG/24 HOURS TOPICAL PATCH TD SCH (10:09)
[2021-01-01 15:41] LABS: PH,URINE 5.5 (5.0-8.0); URINE APPEARANCE CLEAR; URINE BILIRUBIN NEGATIVE (NEGATIVE); URINE COLOR YELLOW; URINE GLUCOSE (UA) NEGATIVE (NEGATIVE); URINE KETONE NEGATIVE (NEGATIVE); URINE LEUK ESTERASE NEGATIVE (NEGATIVE); URINE NITRITE NEGATIVE (NEGATIVE); URINE PROTEIN NEGATIVE (NEGATIVE); URINE UROBILINOGEN 0.2 mg/dL (0.2-1.0)
[2021-01-01] MEDS: NICOTINE POLACRILEX 2 MG GUM BUC PRN (15:46)
[2021-01-01] MEDS: THIAMINE HCL 100 MG TABLET (FP) PO SCH (22:07)
[2021-01-01] MEDS: SUVOREXANT 10 MG TABLET PO PRN (22:07)
[2021-01-01] MEDS: MELATONIN 5 MG TABLETS PO SCH (22:07)
[2021-01-02] MEDS: diazePAM 5 MG TABLET PO PRN ×4 (03:36→19:01)
[2021-01-02] MEDS: METHOCARBAMOL 500 MG TABLET PO PRN ×2 (05:54→22:07)
[2021-01-02] MEDS ORDERED: METHADONE (DETOX) 10 MG, METHADONE (DETOX) 5 MG PO ONE (10:00)
[2021-01-02] MEDS ORDERED: METHADONE HCL 10 MG TABLET (FOR DETOX USE ONLY) ONE (10:03)
[2021-01-02] MEDS ORDERED: METHADONE HCL 5 MG TABLET (FOR DETOX USE ONLY) ONE (10:03)
[2021-01-02] MEDS: PRENATAL VITAMINS W/ FOLIC ACID TABLET (FP) PO SCH (10:28)
[2021-01-02] MEDS: NICOTINE 21 MG/24 HOURS TOPICAL PATCH TD SCH (10:30)
[2021-01-02] MEDS ORDERED: FLU VACCINE (FLULAVAL) PF 60 MCG/0.5 ML SYRINGE 2020-2021 IM ONE (12:00)
[2021-01-02] MEDS: THIAMINE HCL 100 MG TABLET (FP) PO SCH (22:07)
[2021-01-02] MEDS: SUVOREXANT 10 MG TABLET PO PRN (22:07)
[2021-01-02] MEDS: MELATONIN 5 MG TABLETS PO SCH (22:07)
[2021-01-03] MEDS ORDERED: METHADONE HCL 10 MG TABLET (FOR DETOX USE ONLY) PO ONE (10:00)
[2021-01-03] MEDS: NICOTINE 21 MG/24 HOURS TOPICAL PATCH TD SCH (10:27)
[2021-01-03] MEDS: METHOCARBAMOL 500 MG TABLET PO PRN ×2 (10:27→17:33)
[2021-01-03] MEDS: PRENATAL VITAMINS W/ FOLIC ACID TABLET (FP) PO SCH (10:27)
[2021-01-03] MEDS: THIAMINE HCL 100 MG TABLET (FP) PO SCH (22:33)
[2021-01-03] MEDS: MELATONIN 5 MG TABLETS PO SCH (22:33)
[2021-01-04] MEDS ORDERED: METHADONE HCL 5 MG TABLET (FOR DETOX USE ONLY) PO ONE (06:00)
[2021-01-04] MEDS: METHOCARBAMOL 500 MG TABLET PO PRN (06:40)
[2021-01-04] MEDS: NICOTINE 21 MG/24 HOURS TOPICAL PATCH TD SCH (09:33)
[2021-01-04] MEDS: PRENATAL VITAMINS W/ FOLIC ACID TABLET (FP) PO SCH (09:33)
[2021-01-04 13:33] VITALS: BP 125/72; PULSE 96; TEMP 96.7
== END 2021-01-04 13:55 | disposition other institution (70) | DRG 773 ==
LOC: YASAS 17:16 → Y3N 12-31 09:46
PROVIDERS: ADMIT Allergy & Immunology; ATTEND Allergy & Immunology
PROC: HZ2ZZZZ Detoxification Services for Substance Abuse Treatment (ICD-10-PCS; principal; 2020-12-31)
DX: F11.23 Opioid dependence with withdrawal (principal); F10.230 Alcohol dependence with withdrawal, uncomplicated; F14.20 Cocaine dependence, uncomplicated; F16.20 Hallucinogen dependence, uncomplicated; F12.20 Cannabis dependence, uncomplicated; F17.210 Nicotine dependence, cigarettes, uncomplicated; F19.282 Other psychoactive substance dependence with psychoactive substance-induced sleep disorder; F19.24 Other psychoactive substance dependence with psychoactive substance-induced mood disorder; F39 Unspecified mood [affective] disorder; F41.1 Generalized anxiety disorder; F90.9 Attention-deficit hyperactivity disorder, unspecified type; E05.90 Thyrotoxicosis, unspecified without thyrotoxic crisis or storm; G47.00 Insomnia, unspecified; M54.5 Low back pain; G89.29 Other chronic pain; R63.8 Other symptoms and signs concerning food and fluid intake; Z62.810 Personal history of physical and sexual abuse in childhood; Z91.410 Personal history of adult physical and sexual abuse; Z56.0 Unemployment, unspecified; Z59.0 Homelessness
CPT/HCPCS: 36415; 80053; 81003; 85027; 86780; 87389; C9803; J0735; U0003

== ENCOUNTER 2021-01-04 14:04 | Inpatient (IN) | payer OTHER ==
[2021-01-04] MEDS ORDERED: LOPERAMIDE HCL 2 MG CAPSULE PO PRN (15:09)
[2021-01-04] MEDS ORDERED: MENTHOL/PHENOL 1 EACH UD MM PRN (15:09)
[2021-01-04] MEDS ORDERED: IBUPROFEN 400 MG TABLET (FP) PO PRN (15:09)
[2021-01-04] MEDS ORDERED: MAGNESIUM CITRATE 300 ML BOTTLE PO PRN (15:09)
[2021-01-04] MEDS ORDERED: NICOTINE POLACRILEX 2 MG GUM BUC PRN (15:09)
[2021-01-04] MEDS ORDERED: MAG HYDROX/AL HYDROX/SIMETH 30 ML UNIT-DOSE CUP PO PRN (15:09)
[2021-01-04] MEDS ORDERED: ACETAMINOPHEN 325 MG TABLET (FP) PO PRN (15:09)
[2021-01-04] MEDS ORDERED: guaiFENesin 200 MG/10 ML 10 ML UNIT-DOSE CUPS PO PRN (15:09)
[2021-01-04] MEDS ORDERED: MAGNESIUM HYDROX 2400MG/30ML ORAL SUSPENSION 30 ML CUP PO PRN (15:09)
[2021-01-04] MEDS ORDERED: P-EPHED 60MG/TRIPROLIDI 2.5MG TABLET PO PRN (15:09)
[2021-01-04] MEDS: BACITRACIN 0.9 GM PACKET TP SCH (16:25)
[2021-01-04] MEDS: MELATONIN 5 MG TABLETS PO SCH (21:04)
[2021-01-04] MEDS: THIAMINE HCL 100 MG TABLET (FP) PO SCH (21:04)
[2021-01-05] MEDS: PRENATAL VITAMINS W/ FOLIC ACID TABLET (FP) PO SCH (10:51)
[2021-01-05] MEDS: hydrOXYzine PAMOATE 25 MG CAPSULE (FP) PO PRN (10:51)
[2021-01-05] MEDS: NICOTINE 7 MG/24 HOURS TOPICAL PATCH TD SCH (10:51)
[2021-01-05] MEDS: BACITRACIN 0.9 GM PACKET TP SCH (10:51)
[2021-01-05] MEDS: THIAMINE HCL 100 MG TABLET (FP) PO SCH (21:37)
[2021-01-05] MEDS: MELATONIN 5 MG TABLETS PO SCH (21:37)
[2021-01-06] MEDS: PRENATAL VITAMINS W/ FOLIC ACID TABLET (FP) PO SCH (10:26)
[2021-01-06] MEDS: BACITRACIN 0.9 GM PACKET TP SCH (10:26)
[2021-01-06] MEDS: NICOTINE 7 MG/24 HOURS TOPICAL PATCH TD SCH (10:26)
[2021-01-06] MEDS: THIAMINE HCL 100 MG TABLET (FP) PO SCH (21:55)
[2021-01-06] MEDS: MELATONIN 5 MG TABLETS PO SCH (21:55)
[2021-01-07] MEDS: PRENATAL VITAMINS W/ FOLIC ACID TABLET (FP) PO SCH (10:00)
[2021-01-07] MEDS: NICOTINE 7 MG/24 HOURS TOPICAL PATCH TD SCH (10:01)
[2021-01-07] MEDS: BACITRACIN 0.9 GM PACKET TP SCH (10:01)
[2021-01-07] MEDS: hydrOXYzine PAMOATE 25 MG CAPSULE (FP) PO PRN ×2 (13:53→21:45)
[2021-01-07] MEDS: THIAMINE HCL 100 MG TABLET (FP) PO SCH (21:45)
[2021-01-07] MEDS: MELATONIN 5 MG TABLETS PO SCH (21:45)
[2021-01-08] MEDS: PRENATAL VITAMINS W/ FOLIC ACID TABLET (FP) PO SCH (10:18)
[2021-01-08] MEDS: NICOTINE 7 MG/24 HOURS TOPICAL PATCH TD SCH (10:18)
[2021-01-08] MEDS: hydrOXYzine PAMOATE 25 MG CAPSULE (FP) PO PRN ×2 (10:19→21:20)
[2021-01-08] MEDS ORDERED: BUPRENORPHINE/NALOXONE 2 MG/0.5 MG FILM PACKET SL ONE (14:53)
[2021-01-08] MEDS: MELATONIN 5 MG TABLETS PO SCH (21:20)
[2021-01-08] MEDS: THIAMINE HCL 100 MG TABLET (FP) PO SCH (21:20)
[2021-01-09] MEDS: PRENATAL VITAMINS W/ FOLIC ACID TABLET (FP) PO SCH (10:07)
[2021-01-09] MEDS: hydrOXYzine PAMOATE 25 MG CAPSULE (FP) PO PRN ×2 (10:07→21:36)
[2021-01-09] MEDS ORDERED: BUPRENORPHINE/NALOXONE 4 MG/1 MG FILM PACKET SL SCH (10:15)
[2021-01-09] MEDS: NICOTINE 7 MG/24 HOURS TOPICAL PATCH TD SCH (10:26)
[2021-01-09] MEDS: THIAMINE HCL 100 MG TABLET (FP) PO SCH (21:36)
[2021-01-09] MEDS: MELATONIN 5 MG TABLETS PO SCH (21:36)
[2021-01-10] MEDS: NICOTINE 7 MG/24 HOURS TOPICAL PATCH TD SCH (10:06)
[2021-01-10] MEDS: BUPRENORPHINE/NALOXONE 8 MG/2 MG FILM PACKET SL SCH (10:06)
[2021-01-10] MEDS: PRENATAL VITAMINS W/ FOLIC ACID TABLET (FP) PO SCH (10:06)
[2021-01-10] MEDS: hydrOXYzine PAMOATE 25 MG CAPSULE (FP) PO PRN ×2 (10:07→21:25)
[2021-01-10] MEDS: MELATONIN 5 MG TABLETS PO SCH (21:24)
[2021-01-10] MEDS: THIAMINE HCL 100 MG TABLET (FP) PO SCH (21:25)
[2021-01-11] MEDS: PRENATAL VITAMINS W/ FOLIC ACID TABLET (FP) PO SCH (09:57)
[2021-01-11] MEDS: NICOTINE 7 MG/24 HOURS TOPICAL PATCH TD SCH (09:57)
[2021-01-11] MEDS: hydrOXYzine PAMOATE 25 MG CAPSULE (FP) PO PRN ×3 (09:58→21:16)
[2021-01-11] MEDS: BUPRENORPHINE/NALOXONE 8 MG/2 MG FILM PACKET SL SCH (09:58)
[2021-01-11] MEDS: BUPRENORPHINE/NALOXONE 4 MG/1 MG FILM PACKET SL SCH (18:04)
[2021-01-11] MEDS: THIAMINE HCL 100 MG TABLET (FP) PO SCH (21:16)
[2021-01-11] MEDS: MELATONIN 5 MG TABLETS PO SCH (21:16)
[2021-01-12] MEDS: hydrOXYzine PAMOATE 25 MG CAPSULE (FP) PO PRN ×4 (06:39→21:27)
[2021-01-12] MEDS: NICOTINE 7 MG/24 HOURS TOPICAL PATCH TD SCH (09:49)
[2021-01-12] MEDS: PRENATAL VITAMINS W/ FOLIC ACID TABLET (FP) PO SCH (09:49)
[2021-01-12] MEDS: BUPRENORPHINE/NALOXONE 8 MG/2 MG FILM PACKET SL SCH (09:49)
[2021-01-12] MEDS: BUPRENORPHINE/NALOXONE 4 MG/1 MG FILM PACKET SL SCH (17:26)
[2021-01-12] MEDS: THIAMINE HCL 100 MG TABLET (FP) PO SCH (21:27)
[2021-01-12] MEDS: MELATONIN 5 MG TABLETS PO SCH (21:27)
[2021-01-13] MEDS: hydrOXYzine PAMOATE 25 MG CAPSULE (FP) PO PRN ×4 (06:36→21:18)
[2021-01-13] MEDS: BUPRENORPHINE/NALOXONE 8 MG/2 MG FILM PACKET SL SCH (06:36)
[2021-01-13] MEDS: PRENATAL VITAMINS W/ FOLIC ACID TABLET (FP) PO SCH (09:51)
[2021-01-13] MEDS: NICOTINE 7 MG/24 HOURS TOPICAL PATCH TD SCH (09:52)
[2021-01-13] MEDS: BUPRENORPHINE/NALOXONE 4 MG/1 MG FILM PACKET SL SCH (17:46)
[2021-01-13] MEDS: THIAMINE HCL 100 MG TABLET (FP) PO SCH (21:18)
[2021-01-13] MEDS: MELATONIN 5 MG TABLETS PO SCH (21:18)
[2021-01-14] MEDS: BUPRENORPHINE/NALOXONE 8 MG/2 MG FILM PACKET SL SCH (06:19)
[2021-01-14] MEDS: hydrOXYzine PAMOATE 25 MG CAPSULE (FP) PO PRN ×3 (06:19→21:40)
[2021-01-14] MEDS: NICOTINE 7 MG/24 HOURS TOPICAL PATCH TD SCH (09:31)
[2021-01-14] MEDS: PRENATAL VITAMINS W/ FOLIC ACID TABLET (FP) PO SCH (09:31)
[2021-01-14] MEDS: BUPRENORPHINE/NALOXONE 4 MG/1 MG FILM PACKET SL SCH (17:37)
[2021-01-14] MEDS: THIAMINE HCL 100 MG TABLET (FP) PO SCH (21:40)
[2021-01-14] MEDS: MELATONIN 5 MG TABLETS PO SCH (21:40)
[2021-01-15] MEDS: BUPRENORPHINE/NALOXONE 8 MG/2 MG FILM PACKET SL SCH (06:03)
[2021-01-15] MEDS: hydrOXYzine PAMOATE 25 MG CAPSULE (FP) PO PRN ×2 (06:03→10:12)
[2021-01-15 07:04] VITALS: BP 124/71; PULSE 65; TEMP 96.9
[2021-01-15] MEDS: PRENATAL VITAMINS W/ FOLIC ACID TABLET (FP) PO SCH (10:12)
[2021-01-15] MEDS: NICOTINE 7 MG/24 HOURS TOPICAL PATCH TD SCH (10:12)
[2021-01-15] MEDS ORDERED: BUPRENORPHINE/NALOXONE 4 MG/1 MG FILM PACKET SL ONE (12:15)
== END 2021-01-15 14:00 | disposition home or self-care (01) | DRG 772 ==
LOC: YASAS 14:04 → Y5N 14:06
PROVIDERS: ADMIT Allergy & Immunology; ATTEND Allergy & Immunology
PROC: HZ42ZZZ Group Counseling for Substance Abuse Treatment, Cognitive-Behavioral (ICD-10-PCS; principal; 2021-01-04)
DX: F10.20 Alcohol dependence, uncomplicated (principal); F14.20 Cocaine dependence, uncomplicated; F16.20 Hallucinogen dependence, uncomplicated; F11.20 Opioid dependence, uncomplicated; F17.210 Nicotine dependence, cigarettes, uncomplicated; M54.5 Low back pain; W01.198A Fall on same level from slipping, tripping and stumbling with subsequent striking against other object, initial encounter; Y93.89 Activity, other specified; Y92.231 Patient bathroom in hospital as the place of occurrence of the external cause; Y99.8 Other external cause status; Z51.81 Encounter for therapeutic drug level monitoring; Z79.899 Other long term (current) drug therapy
CPT/HCPCS: C9803; U0003

== ENCOUNTER 2021-01-10 23:46 | Emergency (ER) | payer OTHER ==
[2021-01-11 00:12] VITALS: PULSE 78; BMI 28.2
[2021-01-11 06:24] VITALS: BP 127/70; TEMP 97.9
== END 2021-01-11 07:25 | disposition home or self-care (01) ==
LOC: JER 23:46
DX: M54.5 Low back pain (principal); W18.2XXA Fall in (into) shower or empty bathtub, initial encounter
CPT/HCPCS: 70450-TC; 99284-25

== ENCOUNTER 2021-03-15 14:51 | Inpatient (IN) | payer OTHER ==
[2021-03-15 16:09] VITALS: BMI 33.0
[2021-03-15] MEDS ORDERED: MAGNESIUM CITRATE 300 ML BOTTLE PO PRN (17:42)
[2021-03-15] MEDS ORDERED: ACETAMINOPHEN 325 MG TABLET (FP) PO PRN ×2 (17:42)
[2021-03-15] MEDS ORDERED: MAG HYDROX/AL HYDROX/SIMETH 30 ML UNIT-DOSE CUP PO PRN (17:42)
[2021-03-15] MEDS ORDERED: NICOTINE POLACRILEX 2 MG GUM BUC PRN (17:42)
[2021-03-15] MEDS ORDERED: MAGNESIUM HYDROX 2400MG/30ML ORAL SUSPENSION 30 ML CUP PO PRN (17:42)
[2021-03-15] MEDS ORDERED: IBUPROFEN 400 MG TABLET (FP) PO PRN (17:42)
[2021-03-15] MEDS ORDERED: MENTHOL/PHENOL 1 EACH UD MM PRN (17:42)
[2021-03-15] MEDS ORDERED: ONDANSETRON *ODT* 4 MG TABLET SL PRN (17:42)
[2021-03-15] MEDS ORDERED: METHADONE HCL 10 MG TABLET (FOR DETOX USE ONLY) PO ONE (17:42)
[2021-03-15] MEDS ORDERED: cloNIDine HCL 0.1 MG TABLET PO PRN (17:42)
[2021-03-15] MEDS ORDERED: BISMUTH SUBSALICYLATE 524 MG/30 ML UD PO PRN (17:42)
[2021-03-15] MEDS: MELATONIN 5 MG TABLETS PO SCH (22:02)
[2021-03-15] MEDS: THIAMINE HCL 100 MG TABLET (FP) PO SCH (22:02)
[2021-03-16] MEDS ORDERED: METHADONE HCL 5 MG TABLET (FOR DETOX USE ONLY) ONE (09:07)
[2021-03-16] MEDS ORDERED: METHADONE HCL 10 MG TABLET (FOR DETOX USE ONLY) ONE (09:08)
[2021-03-16] MEDS ORDERED: METHADONE (DETOX) 20 MG, METHADONE (DETOX) 5 MG PO ONE (10:00)
[2021-03-16] MEDS: PRENATAL VITAMINS W/ FOLIC ACID TABLET (FP) PO SCH (10:05)
[2021-03-16] MEDS: NICOTINE 21 MG/24 HOURS TOPICAL PATCH TD SCH (10:05)
[2021-03-16] MEDS: METHOCARBAMOL 500 MG TABLET PO PRN ×2 (10:07→22:12)
[2021-03-16] MEDS: diazePAM 5 MG TABLET PO PRN ×3 (10:07→18:08)
[2021-03-16] MEDS: ARIPiprazole 5 MG TABLET PO SCH (11:20)
[2021-03-16 11:41] LABS: HEMATOCRIT 42.8 % (35.4-49); HEMOGLOBIN 14.7 GM/dL (11.7-16.9); MCH 31.6 pg (25.7-33.7); MCHC 34.3 g/dl (32.0-35.9); MEAN CELL VOLUME 92.2 fl (80-96); MEAN PLT VOLUME 9.6 fl (7.5-11.1); PLATELET COUNT 202 K/MM3 (134-434); RBC 4.64 M/mm3 (4.00-5.60); RDW 14.9 % (11.9-15.9); WHITE BLOOD COUNT 8.9 K/mm3 (4.0-10.0)
[2021-03-16 11:45] LABS: ALBUMIN 3.7 g/dl (3.4-5.0)
[2021-03-16 11:49] LABS: BILIRUBIN,TOTAL 0.4 mg/dL (0.2-1); TOT PROT 7.1 g/dl (6.4-8.2)
[2021-03-16] MEDS: traZODone HCL 50 MG TABLET (FP) PO SCH (22:12)
[2021-03-16] MEDS: MELATONIN 5 MG TABLETS PO SCH (22:12)
[2021-03-16] MEDS: THIAMINE HCL 100 MG TABLET (FP) PO SCH (22:12)
[2021-03-17] MEDS: METHOCARBAMOL 500 MG TABLET PO PRN ×3 (06:43→18:09)
[2021-03-17] MEDS: diazePAM 5 MG TABLET PO PRN ×4 (06:43→22:47)
[2021-03-17] MEDS ORDERED: METHADONE HCL 10 MG TABLET (FOR DETOX USE ONLY) PO ONE (10:00)
[2021-03-17] MEDS: PRENATAL VITAMINS W/ FOLIC ACID TABLET (FP) PO SCH (10:23)
[2021-03-17] MEDS: ARIPiprazole 5 MG TABLET PO SCH (10:23)
[2021-03-17] MEDS: NICOTINE 21 MG/24 HOURS TOPICAL PATCH TD SCH (10:23)
[2021-03-17] MEDS: THIAMINE HCL 100 MG TABLET (FP) PO SCH (22:47)
[2021-03-17] MEDS: traZODone HCL 50 MG TABLET (FP) PO SCH (22:47)
[2021-03-17] MEDS: MELATONIN 5 MG TABLETS PO SCH (23:03)
[2021-03-18] MEDS ORDERED: METHADONE HCL 5 MG TABLET (FOR DETOX USE ONLY) ONE (08:56)
[2021-03-18] MEDS ORDERED: METHADONE HCL 10 MG TABLET (FOR DETOX USE ONLY) ONE (08:57)
[2021-03-18] MEDS ORDERED: METHADONE (DETOX) 10 MG, METHADONE (DETOX) 5 MG PO ONE (10:00)
[2021-03-18] MEDS: NICOTINE 21 MG/24 HOURS TOPICAL PATCH TD SCH (10:28)
[2021-03-18] MEDS: ARIPiprazole 5 MG TABLET PO SCH (10:28)
[2021-03-18] MEDS: PRENATAL VITAMINS W/ FOLIC ACID TABLET (FP) PO SCH (10:29)
[2021-03-18] MEDS: diazePAM 5 MG TABLET PO PRN ×3 (10:33→18:47)
[2021-03-18] MEDS: METHOCARBAMOL 500 MG TABLET PO PRN ×2 (10:34→18:47)
[2021-03-18 14:07] LABS: SARS-CoV-2 NAA Not Detected (Not Detected)
[2021-03-18] MEDS: MELATONIN 5 MG TABLETS PO SCH (22:19)
[2021-03-18] MEDS: THIAMINE HCL 100 MG TABLET (FP) PO SCH (22:19)
[2021-03-18] MEDS: traZODone HCL 50 MG TABLET (FP) PO SCH (22:19)
[2021-03-19] MEDS: diazePAM 5 MG TABLET PO PRN (05:33)
[2021-03-19] MEDS: METHOCARBAMOL 500 MG TABLET PO PRN ×2 (05:33→11:59)
[2021-03-19] MEDS ORDERED: METHADONE HCL 10 MG TABLET (FOR DETOX USE ONLY) PO ONE (10:00)
[2021-03-19] MEDS: ARIPiprazole 5 MG TABLET PO SCH (10:24)
[2021-03-19] MEDS: NICOTINE 21 MG/24 HOURS TOPICAL PATCH TD SCH (10:25)
[2021-03-19] MEDS: PRENATAL VITAMINS W/ FOLIC ACID TABLET (FP) PO SCH (10:25)
[2021-03-19 14:56] VITALS: BP 118/68; PULSE 74; TEMP 98.6
[2021-03-20] MEDS ORDERED: METHADONE HCL 5 MG TABLET (FOR DETOX USE ONLY) PO ONE (06:00)
== END 2021-03-19 14:05 | disposition home or self-care (01) | DRG 773 ==
LOC: YASAS 14:51 → Y6N 17:44
PROVIDERS: ADMIT Allergy & Immunology; ATTEND Allergy & Immunology
PROC: HZ2ZZZZ Detoxification Services for Substance Abuse Treatment (ICD-10-PCS; principal; 2021-03-15)
DX: F11.23 Opioid dependence with withdrawal (principal); F10.230 Alcohol dependence with withdrawal, uncomplicated; F14.20 Cocaine dependence, uncomplicated; F16.20 Hallucinogen dependence, uncomplicated; F12.20 Cannabis dependence, uncomplicated; F13.10 Sedative, hypnotic or anxiolytic abuse, uncomplicated; F17.210 Nicotine dependence, cigarettes, uncomplicated; F19.282 Other psychoactive substance dependence with psychoactive substance-induced sleep disorder; F19.24 Other psychoactive substance dependence with psychoactive substance-induced mood disorder; F31.9 Bipolar disorder, unspecified; F41.8 Other specified anxiety disorders; F90.9 Attention-deficit hyperactivity disorder, unspecified type; E16.2 Hypoglycemia, unspecified; E05.90 Thyrotoxicosis, unspecified without thyrotoxic crisis or storm; Z91.5 Personal history of self-harm
CPT/HCPCS: 36415; 80053; 82962; 85027; 86780; C9803; U0003; U0005

== ENCOUNTER 2021-03-20 15:00 | Emergency (ER) | payer OTHER ==
[2021-03-20 15:20] VITALS: TEMP 98.4; BMI 33.0
[2021-03-20 17:07] VITALS: BP 129/81; PULSE 88
== END 2021-03-20 17:10 | disposition home or self-care (01) ==
LOC: JER 15:00
DX: F11.99 Opioid use, unspecified with unspecified opioid-induced disorder (principal); T40.2X1A Poisoning by other opioids, accidental (unintentional), initial encounter
CPT/HCPCS: 93005; 93010; 99284-25

== ENCOUNTER 2021-05-30 17:18 | Inpatient (IN) | payer OTHER ==
[2021-05-30 19:42] VITALS: BMI 31.6
[2021-05-30] MEDS ORDERED: MAGNESIUM CITRATE 300 ML BOTTLE PO PRN (19:59)
[2021-05-30] MEDS ORDERED: BISMUTH SUBSALICYLATE 524 MG/30 ML PO PRN (19:59)
[2021-05-30] MEDS ORDERED: ONDANSETRON *ODT* 4 MG TABLET SL PRN (19:59)
[2021-05-30] MEDS ORDERED: MAGNESIUM HYDROX 2400MG/30ML ORAL SUSPENSION 30 ML CUP PO PRN (19:59)
[2021-05-30] MEDS ORDERED: MAG HYDROX/AL HYDROX/SIMETH 30 ML UNIT-DOSE CUP PO PRN (19:59)
[2021-05-30] MEDS ORDERED: NICOTINE POLACRILEX 2 MG GUM BUC PRN (19:59)
[2021-05-30] MEDS ORDERED: ACETAMINOPHEN 325 MG TABLET (FP) PO PRN ×2 (19:59)
[2021-05-30] MEDS ORDERED: MENTHOL/PHENOL 1 EACH UD MM PRN (19:59)
[2021-05-30] MEDS: MELATONIN 5 MG TABLETS PO SCH (22:07)
[2021-05-30] MEDS: THIAMINE HCL 100 MG TABLET (FP) PO SCH (22:08)
[2021-05-30] MEDS: hydrOXYzine PAMOATE 25 MG CAPSULE (FP) PO SCH (22:08)
[2021-05-31] MEDS: hydrOXYzine PAMOATE 25 MG CAPSULE (FP) PO SCH ×5 (06:42→22:24)
[2021-05-31] MEDS ORDERED: methaDONE HCL 10 MG TABLET PO ONE (09:09)
[2021-05-31] MEDS ORDERED: LORazepam 1 MG TABLET PO PRN (09:18)
[2021-05-31] MEDS ORDERED: methaDONE 80 MG, methaDONE 10 MG PO ONE (09:20)
[2021-05-31] MEDS ORDERED: methaDONE HCL 10 MG TABLET ONE (10:05)
[2021-05-31] MEDS ORDERED: methaDONE HCL 40 MG DISPERSABLE TABLET ONE (10:06)
[2021-05-31] MEDS: LORazepam 2 MG TABLET PO SCH ×3 (10:18→22:23)
[2021-05-31] MEDS: PRENATAL VITAMINS W/ FOLIC ACID TABLET (FP) PO SCH (10:19)
[2021-05-31 10:52] LABS: HEMATOCRIT 38.7 % (35.4-49); HEMOGLOBIN 12.8 GM/dL (11.7-16.9); MCH 29.7 pg (25.7-33.7); MEAN CELL VOLUME 90.1 fl (80-96); MEAN PLT VOLUME 9.3 fl (7.5-11.1); PLATELET COUNT 233 10^3/uL (134-434); RDW 13.6 % (11.9-15.9); WHITE BLOOD COUNT 5.9 K/mm3 (4.0-10.0)
[2021-05-31 10:59] LABS: CALCIUM 8.5 mg/dL (8.5-10.1)
[2021-05-31 11:00] LABS: ALBUMIN 3.4 g/dl (3.4-5.0); BLOOD UREA NITROGEN 19.2 mg/dL (7-18)
[2021-05-31 11:03] LABS: CREATININE 0.8 mg/dL (0.55-1.3)
[2021-05-31 11:05] LABS: BILIRUBIN,TOTAL 0.3 mg/dL (0.2-1); TOT PROT 6.5 g/dl (6.4-8.2)
[2021-05-31] MEDS: IBUPROFEN 400 MG TABLET (FP) PO PRN (17:57)
[2021-05-31] MEDS: THIAMINE HCL 100 MG TABLET (FP) PO SCH (22:24)
[2021-05-31] MEDS: MELATONIN 5 MG TABLETS PO SCH (22:24)
[2021-05-31] MEDS: METHOCARBAMOL 500 MG TABLET PO PRN (22:25)
[2021-06-01] MEDS ORDERED: methaDONE HCL 40 MG DISPERSABLE TABLET ONE (04:41)
[2021-06-01] MEDS ORDERED: methaDONE HCL 10 MG TABLET ONE (04:41)
[2021-06-01] MEDS: hydrOXYzine PAMOATE 25 MG CAPSULE (FP) PO SCH (05:38)
[2021-06-01] MEDS: methaDONE 80 MG, methaDONE 10 MG PO SCH (05:38)
[2021-06-01] MEDS: LORazepam 2 MG TABLET PO SCH ×4 (05:39→22:08)
[2021-06-01] MEDS ORDERED: methaDONE HCL 10 MG TABLET PO SCH (06:00)
[2021-06-01] MEDS: PRENATAL VITAMINS W/ FOLIC ACID TABLET (FP) PO SCH (10:51)
[2021-06-01] MEDS: METHOCARBAMOL 500 MG TABLET PO PRN ×3 (10:51→22:54)
[2021-06-01] MEDS: hydrOXYzine PAMOATE 25 MG CAPSULE (FP) PO PRN ×2 (17:40→22:08)
[2021-06-01] MEDS: IBUPROFEN 400 MG TABLET (FP) PO PRN (19:01)
[2021-06-01] MEDS: MELATONIN 5 MG TABLETS PO SCH (22:07)
[2021-06-01] MEDS: THIAMINE HCL 100 MG TABLET (FP) PO SCH (22:07)
[2021-06-02] MEDS ORDERED: methaDONE HCL 10 MG TABLET ONE (04:03)
[2021-06-02] MEDS ORDERED: methaDONE HCL 40 MG DISPERSABLE TABLET ONE (04:04)
[2021-06-02] MEDS: methaDONE 80 MG, methaDONE 10 MG PO SCH (05:53)
[2021-06-02] MEDS: LORazepam 1 MG TABLET PO SCH ×4 (05:57→22:28)
[2021-06-02] MEDS: LACTULOSE 20 GM/30 ML UDC (FOR ORAL USE ONLY) PO SCH ×4 (07:06→23:30)
[2021-06-02] MEDS: PRENATAL VITAMINS W/ FOLIC ACID TABLET (FP) PO SCH (10:54)
[2021-06-02] MEDS: hydrOXYzine PAMOATE 25 MG CAPSULE (FP) PO PRN ×2 (15:15→20:43)
[2021-06-02] MEDS: THIAMINE HCL 100 MG TABLET (FP) PO SCH (22:28)
[2021-06-02] MEDS: METHOCARBAMOL 500 MG TABLET PO PRN (22:28)
[2021-06-02] MEDS: MELATONIN 5 MG TABLETS PO SCH (22:28)
[2021-06-03] MEDS ORDERED: LORazepam 0.5 MG TABLET PO PRN
[2021-06-03] MEDS: hydrOXYzine PAMOATE 25 MG CAPSULE (FP) PO PRN ×5 (01:16→22:33)
[2021-06-03] MEDS ORDERED: methaDONE HCL 10 MG TABLET ONE (03:00)
[2021-06-03] MEDS ORDERED: methaDONE HCL 40 MG DISPERSABLE TABLET ONE (03:01)
[2021-06-03] MEDS: LACTULOSE 20 GM/30 ML UDC (FOR ORAL USE ONLY) PO SCH ×4 (05:46→23:00)
[2021-06-03] MEDS: LORazepam 0.5 MG TABLET PO SCH ×4 (05:47→22:33)
[2021-06-03] MEDS: methaDONE 80 MG, methaDONE 10 MG PO SCH (05:49)
[2021-06-03] MEDS: PRENATAL VITAMINS W/ FOLIC ACID TABLET (FP) PO SCH (10:13)
[2021-06-03] MEDS: METHOCARBAMOL 500 MG TABLET PO PRN ×2 (10:14→18:02)
[2021-06-03] MEDS: THIAMINE HCL 100 MG TABLET (FP) PO SCH (22:33)
[2021-06-03] MEDS: MELATONIN 5 MG TABLETS PO SCH (22:33)
[2021-06-04] MEDS ORDERED: methaDONE HCL 40 MG DISPERSABLE TABLET ONE (04:26)
[2021-06-04] MEDS ORDERED: methaDONE HCL 10 MG TABLET ONE (04:26)
[2021-06-04] MEDS ORDERED: LORazepam 0.5 MG TABLET PO ONE (05:00)
[2021-06-04] MEDS: methaDONE 80 MG, methaDONE 10 MG PO SCH (06:06)
[2021-06-04] MEDS: hydrOXYzine PAMOATE 25 MG CAPSULE (FP) PO PRN ×3 (06:07→15:04)
[2021-06-04] MEDS: LACTULOSE 20 GM/30 ML UDC (FOR ORAL USE ONLY) PO SCH ×3 (06:07→17:47)
[2021-06-04] MEDS: METHOCARBAMOL 500 MG TABLET PO PRN ×2 (06:08→15:04)
[2021-06-04] MEDS: PRENATAL VITAMINS W/ FOLIC ACID TABLET (FP) PO SCH (10:30)
[2021-06-04 17:47] VITALS: BP 110/62; PULSE 75; TEMP 96.6
== END 2021-06-04 17:59 | disposition other institution (70) | DRG 773 ==
LOC: YASAS 17:18 → Y3N 20:21
PROVIDERS: ADMIT Allergy & Immunology; ATTEND Allergy & Immunology
PROC: HZ2ZZZZ Detoxification Services for Substance Abuse Treatment (ICD-10-PCS; principal; 2021-05-30)
DX: F10.230 Alcohol dependence with withdrawal, uncomplicated (principal); F11.20 Opioid dependence, uncomplicated; F12.20 Cannabis dependence, uncomplicated; F17.210 Nicotine dependence, cigarettes, uncomplicated
CPT/HCPCS: 36415; 80053; 82140; 85027; 86780; C9803; U0003; U0005

== ENCOUNTER 2021-06-04 18:13 | Inpatient (IN) | payer OTHER ==
[2021-06-04] MEDS ORDERED: P-EPHED 60MG/TRIPROLIDI 2.5MG TABLET PO PRN (19:38)
[2021-06-04] MEDS ORDERED: MAGNESIUM CITRATE 300 ML BOTTLE PO PRN (19:38)
[2021-06-04] MEDS ORDERED: ACETAMINOPHEN 325 MG TABLET (FP) PO PRN (19:38)
[2021-06-04] MEDS ORDERED: MENTHOL/PHENOL 1 EACH UD MM PRN (19:38)
[2021-06-04] MEDS ORDERED: LOPERAMIDE HCL 2 MG CAPSULE PO PRN (19:38)
[2021-06-04] MEDS ORDERED: guaiFENesin 200 MG/10 ML 10 ML UNIT-DOSE CUPS PO PRN (19:38)
[2021-06-04] MEDS ORDERED: IBUPROFEN 400 MG TABLET (FP) PO PRN (19:38)
[2021-06-04] MEDS ORDERED: MAG HYDROX/AL HYDROX/SIMETH 30 ML UNIT-DOSE CUP PO PRN (19:38)
[2021-06-04] MEDS ORDERED: MAGNESIUM HYDROX 2400MG/30ML ORAL SUSPENSION 30 ML CUP PO PRN (19:38)
[2021-06-04] MEDS ORDERED: NICOTINE POLACRILEX 2 MG GUM BUC PRN (19:38)
[2021-06-04] MEDS: NICOTINE 7 MG/24 HOURS TOPICAL PATCH TD SCH (20:38)
[2021-06-04] MEDS: PRENATAL VITAMINS W/ FOLIC ACID TABLET (FP) PO SCH (20:38)
[2021-06-04] MEDS: THIAMINE HCL 100 MG TABLET (FP) PO SCH (21:25)
[2021-06-04] MEDS: MELATONIN 5 MG TABLETS PO SCH (21:25)
[2021-06-04] MEDS ORDERED: hydrOXYzine PAMOATE 25 MG CAPSULE (FP) PO SCH (22:00)
[2021-06-05] MEDS ORDERED: methaDONE HCL 40 MG DISPERSABLE TABLET ONE (04:04)
[2021-06-05] MEDS ORDERED: methaDONE HCL 10 MG TABLET ONE (04:04)
[2021-06-05] MEDS: methaDONE 80 MG, methaDONE 10 MG PO SCH (06:50)
[2021-06-05] MEDS: PRENATAL VITAMINS W/ FOLIC ACID TABLET (FP) PO SCH (10:25)
[2021-06-05] MEDS: NICOTINE 7 MG/24 HOURS TOPICAL PATCH TD SCH (10:26)
[2021-06-05] MEDS: hydrOXYzine PAMOATE 25 MG CAPSULE (FP) PO PRN (17:13)
[2021-06-05] MEDS: MELATONIN 5 MG TABLETS PO SCH (21:59)
[2021-06-05] MEDS: BACITRACIN 0.9 GM PACKET TP SCH (21:59)
[2021-06-05] MEDS: THIAMINE HCL 100 MG TABLET (FP) PO SCH (21:59)
[2021-06-06] MEDS ORDERED: methaDONE HCL 10 MG TABLET ONE (03:30)
[2021-06-06] MEDS ORDERED: methaDONE HCL 40 MG DISPERSABLE TABLET ONE (03:30)
[2021-06-06] MEDS: methaDONE 80 MG, methaDONE 10 MG PO SCH (06:17)
[2021-06-06] MEDS: PRENATAL VITAMINS W/ FOLIC ACID TABLET (FP) PO SCH (09:18)
[2021-06-06] MEDS: BACITRACIN 0.9 GM PACKET TP SCH ×2 (09:18→21:48)
[2021-06-06] MEDS: hydrOXYzine PAMOATE 25 MG CAPSULE (FP) PO PRN (09:19)
[2021-06-06] MEDS: NICOTINE 7 MG/24 HOURS TOPICAL PATCH TD SCH (09:21)
[2021-06-06] MEDS: LACTULOSE 20 GM/30 ML UDC (FOR ORAL USE ONLY) PO SCH ×2 (14:44→21:47)
[2021-06-06] MEDS: THIAMINE HCL 100 MG TABLET (FP) PO SCH (21:48)
[2021-06-06] MEDS: MELATONIN 5 MG TABLETS PO SCH (21:48)
[2021-06-07] MEDS ORDERED: methaDONE HCL 10 MG TABLET ONE (03:03)
[2021-06-07] MEDS ORDERED: methaDONE HCL 40 MG DISPERSABLE TABLET ONE (03:03)
[2021-06-07] MEDS: LACTULOSE 20 GM/30 ML UDC (FOR ORAL USE ONLY) PO SCH ×3 (06:27→21:41)
[2021-06-07] MEDS: methaDONE 80 MG, methaDONE 10 MG PO SCH (06:27)
[2021-06-07] MEDS: NICOTINE 7 MG/24 HOURS TOPICAL PATCH TD SCH (10:38)
[2021-06-07] MEDS: PRENATAL VITAMINS W/ FOLIC ACID TABLET (FP) PO SCH (10:38)
[2021-06-07] MEDS: BACITRACIN 0.9 GM PACKET TP SCH ×2 (10:38→21:42)
[2021-06-07] MEDS: hydrOXYzine PAMOATE 25 MG CAPSULE (FP) PO PRN (13:15)
[2021-06-07 17:39] LABS: URINE COLOR YELLOW
[2021-06-07 17:43] LABS: URINE APPEARANCE CLEAR
[2021-06-07 17:44] LABS: URINE GLUCOSE (UA) NEGATIVE (NEGATIVE)
[2021-06-07 17:45] LABS: PH,URINE 6.5 (5.0-8.0); URINE BILIRUBIN NEGATIVE (NEGATIVE); URINE KETONE TRACE (NEGATIVE); URINE LEUK ESTERASE 1+ (NEGATIVE); URINE NITRITE NEGATIVE (NEGATIVE); URINE PROTEIN NEGATIVE (NEGATIVE)
[2021-06-07 18:42] LABS: URINE BACTERIA FEW /hpf (NEGATIVE); URINE RBC 0-3 /hpf (0-4)
[2021-06-07] MEDS: THIAMINE HCL 100 MG TABLET (FP) PO SCH (21:42)
[2021-06-07] MEDS: MELATONIN 5 MG TABLETS PO SCH (21:42)
[2021-06-08] MEDS ORDERED: methaDONE HCL 10 MG TABLET ONE (03:24)
[2021-06-08] MEDS ORDERED: methaDONE HCL 40 MG DISPERSABLE TABLET ONE (03:24)
[2021-06-08] MEDS: LACTULOSE 20 GM/30 ML UDC (FOR ORAL USE ONLY) PO SCH ×3 (06:59→22:33)
[2021-06-08] MEDS: methaDONE 80 MG, methaDONE 10 MG PO SCH (06:59)
[2021-06-08] MEDS: BACITRACIN 0.9 GM PACKET TP SCH ×2 (10:19→22:33)
[2021-06-08] MEDS: NICOTINE 7 MG/24 HOURS TOPICAL PATCH TD SCH (10:19)
[2021-06-08] MEDS: PRENATAL VITAMINS W/ FOLIC ACID TABLET (FP) PO SCH (10:19)
[2021-06-08] MEDS: hydrOXYzine PAMOATE 25 MG CAPSULE (FP) PO PRN (15:10)
[2021-06-08] MEDS: THIAMINE HCL 100 MG TABLET (FP) PO SCH (22:34)
[2021-06-08] MEDS: MELATONIN 5 MG TABLETS PO SCH (22:34)
[2021-06-09] MEDS ORDERED: methaDONE HCL 40 MG DISPERSABLE TABLET ONE (03:20)
[2021-06-09] MEDS ORDERED: methaDONE HCL 10 MG TABLET ONE (03:20)
[2021-06-09] MEDS: methaDONE 80 MG, methaDONE 10 MG PO SCH (06:21)
[2021-06-09] MEDS: LACTULOSE 20 GM/30 ML UDC (FOR ORAL USE ONLY) PO SCH ×3 (06:21→21:45)
[2021-06-09] MEDS: hydrOXYzine PAMOATE 25 MG CAPSULE (FP) PO PRN ×2 (06:22→16:13)
[2021-06-09] MEDS: BACITRACIN 0.9 GM PACKET TP SCH ×2 (10:04→21:46)
[2021-06-09] MEDS: PRENATAL VITAMINS W/ FOLIC ACID TABLET (FP) PO SCH (10:04)
[2021-06-09] MEDS: NICOTINE 7 MG/24 HOURS TOPICAL PATCH TD SCH (10:04)
[2021-06-09] MEDS: MELATONIN 5 MG TABLETS PO SCH (21:47)
[2021-06-09] MEDS: THIAMINE HCL 100 MG TABLET (FP) PO SCH (21:47)
[2021-06-10] MEDS ORDERED: methaDONE HCL 40 MG DISPERSABLE TABLET ONE (02:59)
[2021-06-10] MEDS ORDERED: methaDONE HCL 10 MG TABLET ONE (02:59)
[2021-06-10] MEDS: hydrOXYzine PAMOATE 25 MG CAPSULE (FP) PO PRN (06:40)
[2021-06-10] MEDS: methaDONE 80 MG, methaDONE 10 MG PO SCH (06:40)
[2021-06-10] MEDS: LACTULOSE 20 GM/30 ML UDC (FOR ORAL USE ONLY) PO SCH ×3 (06:40→21:38)
[2021-06-10] MEDS: BACITRACIN 0.9 GM PACKET TP SCH ×2 (09:56→21:38)
[2021-06-10] MEDS: NICOTINE 7 MG/24 HOURS TOPICAL PATCH TD SCH (09:56)
[2021-06-10] MEDS: PRENATAL VITAMINS W/ FOLIC ACID TABLET (FP) PO SCH (09:56)
[2021-06-10] MEDS: MELATONIN 5 MG TABLETS PO SCH (21:38)
[2021-06-10] MEDS: THIAMINE HCL 100 MG TABLET (FP) PO SCH (21:38)
[2021-06-11] MEDS ORDERED: methaDONE HCL 10 MG TABLET ONE (03:20)
[2021-06-11] MEDS ORDERED: methaDONE HCL 40 MG DISPERSABLE TABLET ONE (03:20)
[2021-06-11] MEDS: hydrOXYzine PAMOATE 25 MG CAPSULE (FP) PO PRN ×2 (06:17→14:28)
[2021-06-11] MEDS: methaDONE 80 MG, methaDONE 10 MG PO SCH (06:17)
[2021-06-11] MEDS: LACTULOSE 20 GM/30 ML UDC (FOR ORAL USE ONLY) PO SCH ×3 (06:17→21:49)
[2021-06-11] MEDS: PRENATAL VITAMINS W/ FOLIC ACID TABLET (FP) PO SCH (10:31)
[2021-06-11] MEDS: NICOTINE 7 MG/24 HOURS TOPICAL PATCH TD SCH (10:31)
[2021-06-11] MEDS: BACITRACIN 0.9 GM PACKET TP SCH ×2 (10:31→21:49)
[2021-06-11] MEDS: THIAMINE HCL 100 MG TABLET (FP) PO SCH (21:49)
[2021-06-11] MEDS: MELATONIN 5 MG TABLETS PO SCH (21:49)
[2021-06-12] MEDS ORDERED: methaDONE HCL 10 MG TABLET ONE (03:18)
[2021-06-12] MEDS ORDERED: methaDONE HCL 40 MG DISPERSABLE TABLET ONE (03:18)
[2021-06-12] MEDS: LACTULOSE 20 GM/30 ML UDC (FOR ORAL USE ONLY) PO SCH ×3 (06:26→22:19)
[2021-06-12] MEDS: methaDONE 80 MG, methaDONE 10 MG PO SCH (06:26)
[2021-06-12] MEDS: hydrOXYzine PAMOATE 25 MG CAPSULE (FP) PO PRN ×3 (06:27→22:19)
[2021-06-12] MEDS: NICOTINE 7 MG/24 HOURS TOPICAL PATCH TD SCH (10:13)
[2021-06-12] MEDS: BACITRACIN 0.9 GM PACKET TP SCH ×2 (10:13→22:19)
[2021-06-12] MEDS: PRENATAL VITAMINS W/ FOLIC ACID TABLET (FP) PO SCH (10:13)
[2021-06-12] MEDS: THIAMINE HCL 100 MG TABLET (FP) PO SCH (22:19)
[2021-06-12] MEDS: MELATONIN 5 MG TABLETS PO SCH (22:20)
[2021-06-13] MEDS ORDERED: methaDONE HCL 40 MG DISPERSABLE TABLET ONE (03:13)
[2021-06-13] MEDS ORDERED: methaDONE HCL 10 MG TABLET ONE (03:13)
[2021-06-13] MEDS: methaDONE 80 MG, methaDONE 10 MG PO SCH (06:36)
[2021-06-13] MEDS: LACTULOSE 20 GM/30 ML UDC (FOR ORAL USE ONLY) PO SCH ×3 (06:36→21:40)
[2021-06-13] MEDS: hydrOXYzine PAMOATE 25 MG CAPSULE (FP) PO PRN ×2 (06:37→13:51)
[2021-06-13] MEDS: BACITRACIN 0.9 GM PACKET TP SCH ×2 (10:30→21:41)
[2021-06-13] MEDS: PRENATAL VITAMINS W/ FOLIC ACID TABLET (FP) PO SCH (10:30)
[2021-06-13] MEDS: NICOTINE 7 MG/24 HOURS TOPICAL PATCH TD SCH (10:30)
[2021-06-13] MEDS: MELATONIN 5 MG TABLETS PO SCH (21:40)
[2021-06-13] MEDS: THIAMINE HCL 100 MG TABLET (FP) PO SCH (21:40)
[2021-06-14] MEDS ORDERED: methaDONE HCL 40 MG DISPERSABLE TABLET ONE (03:10)
[2021-06-14] MEDS ORDERED: methaDONE HCL 10 MG TABLET ONE (03:11)
[2021-06-14] MEDS: hydrOXYzine PAMOATE 25 MG CAPSULE (FP) PO PRN ×3 (06:20→19:31)
[2021-06-14] MEDS: methaDONE 80 MG, methaDONE 10 MG PO SCH (06:20)
[2021-06-14] MEDS: LACTULOSE 20 GM/30 ML UDC (FOR ORAL USE ONLY) PO SCH ×3 (06:20→21:01)
[2021-06-14] MEDS: PRENATAL VITAMINS W/ FOLIC ACID TABLET (FP) PO SCH (10:25)
[2021-06-14] MEDS: NICOTINE 7 MG/24 HOURS TOPICAL PATCH TD SCH (10:25)
[2021-06-14] MEDS: BACITRACIN 0.9 GM PACKET TP SCH ×2 (10:25→21:01)
[2021-06-14] MEDS: THIAMINE HCL 100 MG TABLET (FP) PO SCH (21:00)
[2021-06-14] MEDS: MELATONIN 5 MG TABLETS PO SCH (21:00)
[2021-06-15] MEDS ORDERED: methaDONE HCL 10 MG TABLET ONE (03:04)
[2021-06-15] MEDS ORDERED: methaDONE HCL 40 MG DISPERSABLE TABLET ONE (03:04)
[2021-06-15] MEDS: LACTULOSE 20 GM/30 ML UDC (FOR ORAL USE ONLY) PO SCH ×3 (06:08→21:39)
[2021-06-15] MEDS: hydrOXYzine PAMOATE 25 MG CAPSULE (FP) PO PRN (06:08)
[2021-06-15] MEDS: methaDONE 80 MG, methaDONE 10 MG PO SCH (06:08)
[2021-06-15] MEDS: NICOTINE 7 MG/24 HOURS TOPICAL PATCH TD SCH (10:12)
[2021-06-15] MEDS: BACITRACIN 0.9 GM PACKET TP SCH ×2 (10:12→21:39)
[2021-06-15] MEDS: PRENATAL VITAMINS W/ FOLIC ACID TABLET (FP) PO SCH (10:12)
[2021-06-15] MEDS: THIAMINE HCL 100 MG TABLET (FP) PO SCH (21:38)
[2021-06-15] MEDS: MELATONIN 5 MG TABLETS PO SCH (21:39)
[2021-06-16] MEDS ORDERED: methaDONE HCL 40 MG DISPERSABLE TABLET ONE (03:39)
[2021-06-16] MEDS ORDERED: methaDONE HCL 10 MG TABLET ONE (03:40)
[2021-06-16] MEDS: methaDONE 80 MG, methaDONE 10 MG PO SCH (06:30)
[2021-06-16] MEDS: LACTULOSE 20 GM/30 ML UDC (FOR ORAL USE ONLY) PO SCH ×3 (06:30→21:59)
[2021-06-16] MEDS: hydrOXYzine PAMOATE 25 MG CAPSULE (FP) PO PRN (06:31)
[2021-06-16] MEDS: BACITRACIN 0.9 GM PACKET TP SCH ×2 (10:13→21:59)
[2021-06-16] MEDS: NICOTINE 7 MG/24 HOURS TOPICAL PATCH TD SCH (10:13)
[2021-06-16] MEDS: PRENATAL VITAMINS W/ FOLIC ACID TABLET (FP) PO SCH (10:13)
[2021-06-16] MEDS: THIAMINE HCL 100 MG TABLET (FP) PO SCH (21:59)
[2021-06-16] MEDS: MELATONIN 5 MG TABLETS PO SCH (21:59)
[2021-06-17] MEDS ORDERED: methaDONE HCL 10 MG TABLET ONE (03:13)
[2021-06-17] MEDS ORDERED: methaDONE HCL 40 MG DISPERSABLE TABLET ONE (03:13)
[2021-06-17] MEDS: hydrOXYzine PAMOATE 25 MG CAPSULE (FP) PO PRN (06:34)
[2021-06-17] MEDS: methaDONE 80 MG, methaDONE 10 MG PO SCH (06:34)
[2021-06-17] MEDS: LACTULOSE 20 GM/30 ML UDC (FOR ORAL USE ONLY) PO SCH ×3 (06:34→21:55)
[2021-06-17] MEDS: PRENATAL VITAMINS W/ FOLIC ACID TABLET (FP) PO SCH (10:24)
[2021-06-17] MEDS: NICOTINE 7 MG/24 HOURS TOPICAL PATCH TD SCH (10:24)
[2021-06-17] MEDS: BACITRACIN 0.9 GM PACKET TP SCH ×2 (10:24→21:55)
[2021-06-17] MEDS: MELATONIN 5 MG TABLETS PO SCH (21:55)
[2021-06-17] MEDS: THIAMINE HCL 100 MG TABLET (FP) PO SCH (21:55)
[2021-06-18] MEDS ORDERED: methaDONE HCL 40 MG DISPERSABLE TABLET ONE (03:11)
[2021-06-18] MEDS ORDERED: methaDONE HCL 10 MG TABLET ONE (03:12)
[2021-06-18] MEDS: LACTULOSE 20 GM/30 ML UDC (FOR ORAL USE ONLY) PO SCH (06:17)
[2021-06-18] MEDS: methaDONE 80 MG, methaDONE 10 MG PO SCH (06:17)
[2021-06-18] MEDS: hydrOXYzine PAMOATE 25 MG CAPSULE (FP) PO PRN (06:17)
[2021-06-18 07:55] VITALS: BP 118/79; PULSE 79; TEMP 97.8
[2021-06-18] MEDS: BACITRACIN 0.9 GM PACKET TP SCH (10:29)
[2021-06-18] MEDS: PRENATAL VITAMINS W/ FOLIC ACID TABLET (FP) PO SCH (10:29)
[2021-06-18] MEDS: NICOTINE 7 MG/24 HOURS TOPICAL PATCH TD SCH (10:29)
== END 2021-06-18 12:30 | disposition home or self-care (01) | DRG 772 ==
LOC: YASAS 18:13 → Y3W 18:14
PROVIDERS: ADMIT Allergy & Immunology; ATTEND Allergy & Immunology
PROC: HZ42ZZZ Group Counseling for Substance Abuse Treatment, Cognitive-Behavioral (ICD-10-PCS; principal; 2021-06-04)
DX: F11.20 Opioid dependence, uncomplicated (principal); F10.20 Alcohol dependence, uncomplicated; F13.20 Sedative, hypnotic or anxiolytic dependence, uncomplicated
CPT/HCPCS: 81003; 82140; 87086

== ENCOUNTER 2021-07-11 17:27 | Inpatient (IN) | payer OTHER ==
[2021-07-11] MEDS ORDERED: ACETAMINOPHEN 325 MG TABLET (FP) PO PRN ×2 (21:19)
[2021-07-11] MEDS ORDERED: MAGNESIUM HYDROX 2400MG/30ML ORAL SUSPENSION 30 ML CUP PO PRN (21:19)
[2021-07-11] MEDS ORDERED: MAG HYDROX/AL HYDROX/SIMETH 30 ML UNIT-DOSE CUP PO PRN (21:19)
[2021-07-11] MEDS ORDERED: BISMUTH SUBSALICYLATE 524 MG/30 ML PO PRN (21:19)
[2021-07-11] MEDS ORDERED: NICOTINE POLACRILEX 2 MG GUM BUC PRN (21:19)
[2021-07-11] MEDS ORDERED: MENTHOL/PHENOL 1 EACH UD MM PRN (21:19)
[2021-07-11] MEDS ORDERED: IBUPROFEN 400 MG TABLET (FP) PO PRN (21:19)
[2021-07-11] MEDS ORDERED: NICOTINE 10 MG CARTRIDGE (INHALER) IH PRN (21:19)
[2021-07-11] MEDS ORDERED: ONDANSETRON *ODT* 4 MG TABLET SL PRN (21:19)
[2021-07-11] MEDS ORDERED: diazePAM 5 MG TABLET PO ONE (21:19)
[2021-07-11] MEDS ORDERED: MAGNESIUM CITRATE 300 ML BOTTLE PO PRN (21:19)
[2021-07-12 00:30] VITALS: BMI 32.4
[2021-07-12] MEDS ORDERED: diazePAM 5 MG TABLET ONE ×2 (01:15→05:39)
[2021-07-12] MEDS ORDERED: hydrOXYzine PAMOATE 25 MG CAPSULE (FP) PO ONE ×2 (01:15→05:40)
[2021-07-12] MEDS: PRENATAL VITAMINS W/ FOLIC ACID TABLET (FP) PO SCH ×2 (01:34→11:15)
[2021-07-12] MEDS: THIAMINE HCL 100 MG TABLET (FP) PO SCH ×2 (01:34→22:21)
[2021-07-12] MEDS: hydrOXYzine PAMOATE 25 MG CAPSULE (FP) PO SCH ×6 (01:34→22:21)
[2021-07-12] MEDS: MELATONIN 5 MG TABLETS PO SCH ×2 (01:34→22:21)
[2021-07-12] MEDS: diazePAM 5 MG TABLET PO SCH ×5 (01:34→22:20)
[2021-07-12] MEDS ORDERED: methaDONE HCL 10 MG TABLET PO SCH (09:00)
[2021-07-12] MEDS ORDERED: methaDONE HCL 10 MG TABLET ONE (11:10)
[2021-07-12] MEDS ORDERED: methaDONE HCL 40 MG DISPERSABLE TABLET ONE (11:12)
[2021-07-12] MEDS: METHOCARBAMOL 500 MG TABLET PO PRN (11:14)
[2021-07-12] MEDS: methaDONE 80 MG, methaDONE 10 MG PO SCH (11:14)
[2021-07-12] MEDS: NICOTINE 14 MG/24 HOURS TOPICAL PATCH TD SCH (11:20)
[2021-07-12 13:45] LABS: HEMATOCRIT 36.6 % (35.4-49); HEMOGLOBIN 12.5 GM/dL (11.7-16.9); MCH 30.7 pg (25.7-33.7); MCHC 34.2 g/dl (32.0-35.9); MEAN CELL VOLUME 89.8 fl (80-96); MEAN PLT VOLUME 9.2 fl (7.5-11.1); PLATELET COUNT 232 10^3/uL (134-434); RBC 4.08 M/mm3 (4.00-5.60); RDW 14.5 % (11.9-15.9)
[2021-07-12 14:12] LABS: CALCIUM 8.5 mg/dL (8.5-10.1)
[2021-07-12 14:13] LABS: ALBUMIN 3.4 g/dl (3.4-5.0)
[2021-07-12 14:16] LABS: CREATININE 0.9 mg/dL (0.55-1.3)
[2021-07-12 14:17] LABS: BILIRUBIN,TOTAL 0.6 mg/dL (0.2-1)
[2021-07-12 14:18] LABS: TOT PROT 6.8 g/dl (6.4-8.2)
[2021-07-12] MEDS: traZODone HCL 50 MG TABLET (FP) PO SCH (22:21)
[2021-07-13] MEDS ORDERED: methaDONE HCL 10 MG TABLET ONE (04:17)
[2021-07-13] MEDS ORDERED: methaDONE HCL 40 MG DISPERSABLE TABLET ONE (04:18)
[2021-07-13] MEDS: methaDONE 80 MG, methaDONE 10 MG PO SCH (06:01)
[2021-07-13] MEDS: hydrOXYzine PAMOATE 25 MG CAPSULE (FP) PO SCH ×5 (06:02→22:14)
[2021-07-13] MEDS: diazePAM 5 MG TABLET PO SCH ×3 (06:02→22:14)
[2021-07-13] MEDS: PRENATAL VITAMINS W/ FOLIC ACID TABLET (FP) PO SCH (10:15)
[2021-07-13] MEDS: NICOTINE 14 MG/24 HOURS TOPICAL PATCH TD SCH (10:15)
[2021-07-13] MEDS: diazePAM 5 MG TABLET PO PRN (17:48)
[2021-07-13] MEDS: THIAMINE HCL 100 MG TABLET (FP) PO SCH (22:14)
[2021-07-13] MEDS: METHOCARBAMOL 500 MG TABLET PO PRN (22:14)
[2021-07-13] MEDS: traZODone HCL 50 MG TABLET (FP) PO SCH (22:14)
[2021-07-13] MEDS: MELATONIN 5 MG TABLETS PO SCH (22:15)
[2021-07-14] MEDS ORDERED: methaDONE HCL 10 MG TABLET ONE (04:09)
[2021-07-14] MEDS ORDERED: methaDONE HCL 40 MG DISPERSABLE TABLET ONE (04:10)
[2021-07-14] MEDS: methaDONE 80 MG, methaDONE 10 MG PO SCH (06:02)
[2021-07-14] MEDS: diazePAM 5 MG TABLET PO SCH ×2 (06:03→17:20)
[2021-07-14] MEDS: hydrOXYzine PAMOATE 25 MG CAPSULE (FP) PO SCH ×5 (06:04→22:19)
[2021-07-14] MEDS: NICOTINE 14 MG/24 HOURS TOPICAL PATCH TD SCH (10:19)
[2021-07-14] MEDS: PRENATAL VITAMINS W/ FOLIC ACID TABLET (FP) PO SCH (10:19)
[2021-07-14] MEDS: diazePAM 5 MG TABLET PO PRN ×2 (10:20→15:52)
[2021-07-14] MEDS: METHOCARBAMOL 500 MG TABLET PO PRN ×2 (13:58→22:19)
[2021-07-14] MEDS: traZODone HCL 50 MG TABLET (FP) PO SCH (22:19)
[2021-07-14] MEDS: THIAMINE HCL 100 MG TABLET (FP) PO SCH (22:19)
[2021-07-14] MEDS: MELATONIN 5 MG TABLETS PO SCH (22:19)
[2021-07-15] MEDS ORDERED: methaDONE HCL 40 MG DISPERSABLE TABLET ONE (04:35)
[2021-07-15] MEDS ORDERED: methaDONE HCL 10 MG TABLET ONE (04:35)
[2021-07-15] MEDS ORDERED: diazePAM 5 MG TABLET PO ONE (06:00)
[2021-07-15] MEDS: methaDONE 80 MG, methaDONE 10 MG PO SCH (06:37)
[2021-07-15] MEDS: hydrOXYzine PAMOATE 25 MG CAPSULE (FP) PO SCH ×3 (06:38→15:05)
[2021-07-15] MEDS: NICOTINE 14 MG/24 HOURS TOPICAL PATCH TD SCH (10:25)
[2021-07-15] MEDS: METHOCARBAMOL 500 MG TABLET PO PRN (10:27)
[2021-07-15] MEDS: PRENATAL VITAMINS W/ FOLIC ACID TABLET (FP) PO SCH (10:27)
[2021-07-15 13:49] VITALS: BP 130/61; PULSE 65; TEMP 96.8
== END 2021-07-15 15:30 | disposition other institution (70) | DRG 773 ==
LOC: YASAS 17:27 → Y6N 07-12 08:40
PROVIDERS: ADMIT Allergy & Immunology; ATTEND Allergy & Immunology
PROC: HZ2ZZZZ Detoxification Services for Substance Abuse Treatment (ICD-10-PCS; principal; 2021-07-12)
DX: F10.230 Alcohol dependence with withdrawal, uncomplicated (principal); F11.20 Opioid dependence, uncomplicated; F14.20 Cocaine dependence, uncomplicated; F16.20 Hallucinogen dependence, uncomplicated; F12.20 Cannabis dependence, uncomplicated; F17.213 Nicotine dependence, cigarettes, with withdrawal; F32.9 Major depressive disorder, single episode, unspecified; F41.9 Anxiety disorder, unspecified
CPT/HCPCS: 36415; 80053; 85027; 86780; C9803; Q0162; U0003; U0005

== ENCOUNTER 2021-07-15 14:42 | Inpatient (IN) | payer OTHER ==
[~2021-07-15 14:42] MED LIST: ACETAMINOPHEN 325 MG TABLET (FP) PO PRN; IBUPROFEN 400 MG TABLET (FP) PO PRN; LOPERAMIDE HCL 2 MG CAPSULE PO PRN; MAG HYDROX/AL HYDROX/SIMETH 30 ML UNIT-DOSE CUP PO PRN; MAGNESIUM CITRATE 300 ML BOTTLE PO PRN; MAGNESIUM HYDROX 2400MG/30ML ORAL SUSPENSION 30 ML CUP PO PRN; NICOTINE 10 MG CARTRIDGE (INHALER) IH PRN; NICOTINE POLACRILEX 2 MG GUM BC PRN; P-EPHED 60MG/TRIPROLIDI 2.5MG TABLET PO PRN; guaiFENesin 200 MG/10 ML 10 ML UNIT-DOSE CUPS PO PRN
[2021-07-15] MEDS: hydrOXYzine PAMOATE 25 MG CAPSULE (FP) PO SCH ×2 (18:50→22:50)
[2021-07-15] MEDS: MELATONIN 5 MG TABLETS PO SCH (22:50)
[2021-07-15] MEDS: traZODone HCL 50 MG TABLET (FP) PO SCH (22:50)
[2021-07-15] MEDS: THIAMINE HCL 100 MG TABLET (FP) PO SCH (22:50)
[2021-07-16] MEDS ORDERED: methaDONE HCL 40 MG DISPERSABLE TABLET ONE (04:05)
[2021-07-16] MEDS ORDERED: methaDONE HCL 10 MG TABLET ONE (04:05)
[2021-07-16] MEDS ORDERED: methaDONE HCL 10 MG TABLET PO SCH (06:00)
[2021-07-16] MEDS: methaDONE 80 MG, methaDONE 10 MG PO SCH (06:42)
[2021-07-16] MEDS: hydrOXYzine PAMOATE 25 MG CAPSULE (FP) PO SCH ×2 (06:42→09:52)
[2021-07-16] MEDS: PRENATAL VITAMINS W/ FOLIC ACID TABLET (FP) PO SCH (09:52)
[2021-07-16] MEDS: NICOTINE 14 MG/24 HOURS TOPICAL PATCH TD SCH (09:57)
[2021-07-16] MEDS: METHOCARBAMOL 500 MG TABLET PO SCH ×2 (14:28→22:07)
[2021-07-16] MEDS: hydrOXYzine PAMOATE 25 MG CAPSULE (FP) PO PRN (14:28)
[2021-07-16] MEDS: traZODone HCL 50 MG TABLET (FP) PO SCH (22:07)
[2021-07-16] MEDS: MELATONIN 5 MG TABLETS PO SCH (22:07)
[2021-07-16] MEDS: THIAMINE HCL 100 MG TABLET (FP) PO SCH (22:07)
[2021-07-17] MEDS ORDERED: methaDONE HCL 10 MG TABLET ONE (03:13)
[2021-07-17] MEDS ORDERED: methaDONE HCL 40 MG DISPERSABLE TABLET ONE (03:13)
[2021-07-17] MEDS: methaDONE 80 MG, methaDONE 10 MG PO SCH (06:38)
[2021-07-17] MEDS: METHOCARBAMOL 500 MG TABLET PO SCH ×3 (06:38→23:01)
[2021-07-17] MEDS: hydrOXYzine PAMOATE 25 MG CAPSULE (FP) PO PRN ×3 (06:38→14:24)
[2021-07-17] MEDS: NICOTINE 14 MG/24 HOURS TOPICAL PATCH TD SCH (10:21)
[2021-07-17] MEDS: PRENATAL VITAMINS W/ FOLIC ACID TABLET (FP) PO SCH (10:21)
[2021-07-17] MEDS: MELATONIN 5 MG TABLETS PO SCH (23:01)
[2021-07-17] MEDS: THIAMINE HCL 100 MG TABLET (FP) PO SCH (23:01)
[2021-07-17] MEDS: traZODone HCL 50 MG TABLET (FP) PO SCH (23:01)
[2021-07-18] MEDS ORDERED: methaDONE HCL 10 MG TABLET ONE (03:15)
[2021-07-18] MEDS ORDERED: methaDONE HCL 40 MG DISPERSABLE TABLET ONE (03:15)
[2021-07-18] MEDS: METHOCARBAMOL 500 MG TABLET PO SCH ×3 (06:58→22:45)
[2021-07-18] MEDS: methaDONE 80 MG, methaDONE 10 MG PO SCH (06:58)
[2021-07-18] MEDS: hydrOXYzine PAMOATE 25 MG CAPSULE (FP) PO PRN ×3 (06:58→14:29)
[2021-07-18] MEDS: NICOTINE 14 MG/24 HOURS TOPICAL PATCH TD SCH (10:46)
[2021-07-18] MEDS: PRENATAL VITAMINS W/ FOLIC ACID TABLET (FP) PO SCH (10:46)
[2021-07-18] MEDS: THIAMINE HCL 100 MG TABLET (FP) PO SCH (22:45)
[2021-07-18] MEDS: traZODone HCL 50 MG TABLET (FP) PO SCH (22:45)
[2021-07-18] MEDS: MELATONIN 5 MG TABLETS PO SCH (22:45)
[2021-07-19] MEDS ORDERED: methaDONE HCL 10 MG TABLET ONE (03:07)
[2021-07-19] MEDS ORDERED: methaDONE HCL 40 MG DISPERSABLE TABLET ONE (03:07)
[2021-07-19] MEDS: hydrOXYzine PAMOATE 25 MG CAPSULE (FP) PO PRN ×3 (06:31→14:15)
[2021-07-19] MEDS: METHOCARBAMOL 500 MG TABLET PO SCH ×3 (06:31→22:50)
[2021-07-19] MEDS: methaDONE 80 MG, methaDONE 10 MG PO SCH (06:31)
[2021-07-19] MEDS: PRENATAL VITAMINS W/ FOLIC ACID TABLET (FP) PO SCH (09:51)
[2021-07-19] MEDS: NICOTINE 14 MG/24 HOURS TOPICAL PATCH TD SCH (09:51)
[2021-07-19] MEDS: MELATONIN 5 MG TABLETS PO SCH (22:50)
[2021-07-19] MEDS: THIAMINE HCL 100 MG TABLET (FP) PO SCH (22:50)
[2021-07-19] MEDS: traZODone HCL 50 MG TABLET (FP) PO SCH (22:50)
[2021-07-20] MEDS ORDERED: methaDONE HCL 40 MG DISPERSABLE TABLET ONE (03:13)
[2021-07-20] MEDS ORDERED: methaDONE HCL 10 MG TABLET ONE (03:14)
[2021-07-20] MEDS: METHOCARBAMOL 500 MG TABLET PO SCH ×3 (06:21→22:55)
[2021-07-20] MEDS: hydrOXYzine PAMOATE 25 MG CAPSULE (FP) PO PRN (06:21)
[2021-07-20] MEDS: methaDONE 80 MG, methaDONE 10 MG PO SCH (06:21)
[2021-07-20] MEDS: PRENATAL VITAMINS W/ FOLIC ACID TABLET (FP) PO SCH (10:24)
[2021-07-20] MEDS: NICOTINE 14 MG/24 HOURS TOPICAL PATCH TD SCH (10:24)
[2021-07-20] MEDS: MELATONIN 5 MG TABLETS PO SCH (22:55)
[2021-07-20] MEDS: traZODone HCL 50 MG TABLET (FP) PO SCH (22:55)
[2021-07-20] MEDS: THIAMINE HCL 100 MG TABLET (FP) PO SCH (22:55)
[2021-07-21] MEDS ORDERED: methaDONE HCL 40 MG DISPERSABLE TABLET ONE (03:21)
[2021-07-21] MEDS ORDERED: methaDONE HCL 10 MG TABLET ONE (03:21)
[2021-07-21] MEDS: methaDONE 80 MG, methaDONE 10 MG PO SCH (06:08)
[2021-07-21] MEDS: METHOCARBAMOL 500 MG TABLET PO SCH ×3 (06:08→22:29)
[2021-07-21] MEDS: hydrOXYzine PAMOATE 25 MG CAPSULE (FP) PO PRN ×2 (06:08→14:14)
[2021-07-21] MEDS: PRENATAL VITAMINS W/ FOLIC ACID TABLET (FP) PO SCH (10:47)
[2021-07-21] MEDS: NICOTINE 14 MG/24 HOURS TOPICAL PATCH TD SCH (10:48)
[2021-07-21] MEDS: traZODone HCL 50 MG TABLET (FP) PO SCH (22:29)
[2021-07-21] MEDS: MELATONIN 5 MG TABLETS PO SCH (22:29)
[2021-07-21] MEDS: THIAMINE HCL 100 MG TABLET (FP) PO SCH (22:29)
[2021-07-22] MEDS ORDERED: methaDONE HCL 40 MG DISPERSABLE TABLET ONE (05:21)
[2021-07-22] MEDS ORDERED: methaDONE HCL 10 MG TABLET ONE (05:21)
[2021-07-22] MEDS: methaDONE 80 MG, methaDONE 10 MG PO SCH (06:57)
[2021-07-22] MEDS: METHOCARBAMOL 500 MG TABLET PO SCH ×3 (06:57→21:46)
[2021-07-22] MEDS: hydrOXYzine PAMOATE 25 MG CAPSULE (FP) PO PRN (06:59)
[2021-07-22] MEDS: NICOTINE 14 MG/24 HOURS TOPICAL PATCH TD SCH (10:21)
[2021-07-22] MEDS: PRENATAL VITAMINS W/ FOLIC ACID TABLET (FP) PO SCH (10:21)
[2021-07-22] MEDS: traZODone HCL 50 MG TABLET (FP) PO SCH (21:46)
[2021-07-22] MEDS: THIAMINE HCL 100 MG TABLET (FP) PO SCH (21:46)
[2021-07-22] MEDS: MELATONIN 5 MG TABLETS PO SCH (21:46)
[2021-07-23] MEDS ORDERED: methaDONE HCL 40 MG DISPERSABLE TABLET ONE (04:48)
[2021-07-23] MEDS ORDERED: methaDONE HCL 10 MG TABLET ONE (04:48)
[2021-07-23] MEDS ORDERED: methaDONE HCL 10 MG TABLET PO SCH (06:00)
[2021-07-23] MEDS ORDERED: methaDONE 80 MG, methaDONE 10 MG PO SCH (06:00)
[2021-07-23] MEDS: hydrOXYzine PAMOATE 25 MG CAPSULE (FP) PO PRN ×2 (06:20→22:35)
[2021-07-23] MEDS: METHOCARBAMOL 500 MG TABLET PO SCH ×3 (06:20→22:35)
[2021-07-23] MEDS: methaDONE 80 MG, methaDONE 10 MG PO SCH (06:20)
[2021-07-23] MEDS: NICOTINE 14 MG/24 HOURS TOPICAL PATCH TD SCH (10:32)
[2021-07-23] MEDS: PRENATAL VITAMINS W/ FOLIC ACID TABLET (FP) PO SCH (10:32)
[2021-07-23] MEDS: THIAMINE HCL 100 MG TABLET (FP) PO SCH (22:35)
[2021-07-23] MEDS: MELATONIN 5 MG TABLETS PO SCH (22:35)
[2021-07-23] MEDS: traZODone HCL 50 MG TABLET (FP) PO SCH (22:35)
[2021-07-24] MEDS ORDERED: methaDONE HCL 10 MG TABLET ONE (03:10)
[2021-07-24] MEDS ORDERED: methaDONE HCL 40 MG DISPERSABLE TABLET ONE (03:10)
[2021-07-24] MEDS: methaDONE 80 MG, methaDONE 10 MG PO SCH (06:13)
[2021-07-24] MEDS: hydrOXYzine PAMOATE 25 MG CAPSULE (FP) PO PRN ×2 (06:14→10:56)
[2021-07-24] MEDS: METHOCARBAMOL 500 MG TABLET PO SCH ×2 (06:14→13:55)
[2021-07-24 07:10] VITALS: BP 119/72; PULSE 71; TEMP 96.8
[2021-07-24] MEDS: PRENATAL VITAMINS W/ FOLIC ACID TABLET (FP) PO SCH (10:56)
[2021-07-24] MEDS: NICOTINE 14 MG/24 HOURS TOPICAL PATCH TD SCH (10:56)
== END 2021-07-24 14:45 | disposition home or self-care (01) | DRG 772 ==
LOC: YASAS 14:42 → Y3W 14:43
PROVIDERS: ADMIT Allergy & Immunology; ATTEND Allergy & Immunology
PROC: HZ42ZZZ Group Counseling for Substance Abuse Treatment, Cognitive-Behavioral (ICD-10-PCS; principal; 2021-07-15)
DX: F11.20 Opioid dependence, uncomplicated (principal); F10.20 Alcohol dependence, uncomplicated; F13.20 Sedative, hypnotic or anxiolytic dependence, uncomplicated; F41.9 Anxiety disorder, unspecified; F32.9 Major depressive disorder, single episode, unspecified; M54.5 Low back pain; G89.29 Other chronic pain

== ENCOUNTER 2021-09-16 03:16 | Emergency (ER) | payer OTHER ==
[2021-09-16 03:27] VITALS: BP 146/79; PULSE 108; TEMP 97.9; BMI 32.7
== END 2021-09-16 04:35 | disposition home or self-care (01) ==
LOC: JER 03:16
DX: S00.83XA Contusion of other part of head, initial encounter (principal); W50.0XXA Accidental hit or strike by another person, initial encounter
CPT/HCPCS: 99283-25

== ENCOUNTER 2021-09-16 11:12 | Inpatient (IN) | payer OTHER ==
[2021-09-16 13:04] VITALS: BMI 33.0
[2021-09-16] MEDS ORDERED: methaDONE HCL 10 MG TABLET (FOR DETOX USE ONLY) PO ONE (15:16)
[2021-09-16] MEDS: diazePAM 5 MG TABLET PO SCH ×2 (16:47→22:23)
[2021-09-16] MEDS: diazePAM 5 MG TABLET PO PRN (20:37)
[2021-09-16] MEDS: cloNIDine HCL 0.1 MG TABLET PO PRN (22:23)
[2021-09-16] MEDS: BACITRACIN 0.9 GM PACKET TP SCH (22:24)
[2021-09-16] MEDS ORDERED: MENTHOL/PHENOL 1 EACH UD MM PRN (22:28)
[2021-09-16] MEDS ORDERED: NICOTINE 10 MG CARTRIDGE (INHALER) IH PRN (22:28)
[2021-09-16] MEDS ORDERED: MAGNESIUM HYDROX 2400MG/30ML ORAL SUSPENSION 30 ML CUP PO PRN (22:28)
[2021-09-16] MEDS ORDERED: BISMUTH SUBSALICYLATE 524 MG/30 ML PO PRN (22:28)
[2021-09-16] MEDS ORDERED: IBUPROFEN 400 MG TABLET (FP) PO PRN (22:28)
[2021-09-16] MEDS ORDERED: MAGNESIUM CITRATE 300 ML BOTTLE PO PRN (22:28)
[2021-09-16] MEDS ORDERED: MAG HYDROX/AL HYDROX/SIMETH 30 ML UNIT-DOSE CUP PO PRN (22:28)
[2021-09-16] MEDS ORDERED: ONDANSETRON *ODT* 4 MG TABLET SL PRN (22:28)
[2021-09-16] MEDS ORDERED: ACETAMINOPHEN 325 MG TABLET (FP) PO PRN ×2 (22:28)
[2021-09-17] MEDS: diazePAM 5 MG TABLET PO SCH ×4 (06:13→22:19)
[2021-09-17] MEDS ORDERED: methaDONE HCL 10 MG TABLET (FOR DETOX USE ONLY) ONE (09:16)
[2021-09-17] MEDS: PRENATAL VITAMINS W/ FOLIC ACID TABLET (FP) PO SCH (10:06)
[2021-09-17] MEDS: BACITRACIN 0.9 GM PACKET TP SCH ×2 (10:06→22:19)
[2021-09-17] MEDS: NICOTINE 14 MG/24 HOURS TOPICAL PATCH TD SCH (10:13)
[2021-09-17 11:04] LABS: MCH 30.8 pg (25.7-33.7); MCHC 33.4 g/dl (32.0-35.9); MEAN CELL VOLUME 92.3 fl (80-96); MEAN PLT VOLUME 9.3 fl (7.5-11.1); PLATELET COUNT 198 10^3/uL (134-434); RBC 4.22 M/mm3 (4.00-5.60); WHITE BLOOD COUNT 5.9 K/mm3 (4.0-10.0)
[2021-09-17 11:05] LABS: CALCIUM 8.4 mg/dL (8.5-10.1)
[2021-09-17 11:06] LABS: ALBUMIN 2.7 g/dl (3.4-5.0)
[2021-09-17 11:09] LABS: CREATININE 0.8 mg/dL (0.55-1.3)
[2021-09-17 11:10] LABS: BILIRUBIN,TOTAL 0.4 mg/dL (0.2-1); TOT PROT 5.8 g/dl (6.4-8.2)
[2021-09-17] MEDS: diazePAM 5 MG TABLET PO PRN (12:11)
[2021-09-17] MEDS: hydrOXYzine PAMOATE 50 MG CAPSULE (FP) PO PRN ×2 (13:54→22:22)
[2021-09-17] MEDS ORDERED: MELATONIN 5 MG TABLETS PO SCH (22:00)
[2021-09-17] MEDS: THIAMINE HCL 100 MG TABLET (FP) PO SCH (22:19)
[2021-09-17] MEDS: MELATONIN 5 MG TABLETS PO SCH (22:20)
[2021-09-17] MEDS: METHOCARBAMOL 500 MG TABLET PO PRN (22:22)
[2021-09-18] MEDS: hydrOXYzine PAMOATE 50 MG CAPSULE (FP) PO PRN ×4 (05:48→23:07)
[2021-09-18] MEDS: METHOCARBAMOL 500 MG TABLET PO PRN ×4 (05:48→23:06)
[2021-09-18] MEDS: diazePAM 5 MG TABLET PO SCH ×3 (05:49→23:05)
[2021-09-18] MEDS ORDERED: methaDONE HCL 10 MG TABLET (FOR DETOX USE ONLY) PO ONE (10:00)
[2021-09-18] MEDS: BACITRACIN 0.9 GM PACKET TP SCH ×2 (10:42→23:45)
[2021-09-18] MEDS: PRENATAL VITAMINS W/ FOLIC ACID TABLET (FP) PO SCH (10:42)
[2021-09-18] MEDS: diazePAM 5 MG TABLET PO PRN ×2 (10:44→14:59)
[2021-09-18] MEDS: NICOTINE 14 MG/24 HOURS TOPICAL PATCH TD SCH (10:49)
[2021-09-18] MEDS: cloNIDine HCL 0.1 MG TABLET PO PRN (23:04)
[2021-09-18] MEDS: THIAMINE HCL 100 MG TABLET (FP) PO SCH (23:05)
[2021-09-18] MEDS: MELATONIN 5 MG TABLETS PO SCH (23:44)
[2021-09-19] MEDS: hydrOXYzine PAMOATE 50 MG CAPSULE (FP) PO PRN ×3 (06:08→22:20)
[2021-09-19] MEDS: diazePAM 5 MG TABLET PO SCH ×2 (06:09→17:46)
[2021-09-19] MEDS: METHOCARBAMOL 500 MG TABLET PO PRN ×3 (06:12→22:23)
[2021-09-19] MEDS ORDERED: methaDONE HCL 10 MG TABLET (FOR DETOX USE ONLY) ONE (09:35)
[2021-09-19] MEDS: PRENATAL VITAMINS W/ FOLIC ACID TABLET (FP) PO SCH (10:44)
[2021-09-19] MEDS: BACITRACIN 0.9 GM PACKET TP SCH ×2 (10:44→22:20)
[2021-09-19] MEDS: diazePAM 5 MG TABLET PO PRN ×2 (10:45→14:48)
[2021-09-19] MEDS: NICOTINE 14 MG/24 HOURS TOPICAL PATCH TD SCH (10:46)
[2021-09-19] MEDS: THIAMINE HCL 100 MG TABLET (FP) PO SCH (22:20)
[2021-09-19] MEDS: MELATONIN 5 MG TABLETS PO SCH (22:34)
[2021-09-20] MEDS ORDERED: diazePAM 5 MG TABLET PO ONE (06:00)
[2021-09-20] MEDS: METHOCARBAMOL 500 MG TABLET PO PRN ×2 (06:21→13:05)
[2021-09-20] MEDS ORDERED: methaDONE HCL 10 MG TABLET (FOR DETOX USE ONLY) PO ONE (10:00)
[2021-09-20] MEDS: BACITRACIN 0.9 GM PACKET TP SCH ×2 (10:38→22:14)
[2021-09-20] MEDS: PRENATAL VITAMINS W/ FOLIC ACID TABLET (FP) PO SCH (10:39)
[2021-09-20] MEDS: NICOTINE 14 MG/24 HOURS TOPICAL PATCH TD SCH (10:39)
[2021-09-20] MEDS: hydrOXYzine PAMOATE 50 MG CAPSULE (FP) PO PRN (10:39)
[2021-09-20] MEDS: MELATONIN 5 MG TABLETS PO SCH (22:14)
[2021-09-20] MEDS: THIAMINE HCL 100 MG TABLET (FP) PO SCH (22:14)
[2021-09-21] MEDS: METHOCARBAMOL 500 MG TABLET PO PRN (07:01)
[2021-09-21] MEDS: hydrOXYzine PAMOATE 50 MG CAPSULE (FP) PO PRN (07:01)
[2021-09-21 09:56] VITALS: BP 119/58; PULSE 72; TEMP 98
[2021-09-21] MEDS: PRENATAL VITAMINS W/ FOLIC ACID TABLET (FP) PO SCH (10:06)
[2021-09-21] MEDS: BACITRACIN 0.9 GM PACKET TP SCH (10:06)
[2021-09-21] MEDS: NICOTINE 14 MG/24 HOURS TOPICAL PATCH TD SCH (10:06)
== END 2021-09-21 12:15 | disposition other institution (70) | DRG 773 ==
LOC: YASAS 11:12 → Y6N 16:00
PROVIDERS: ADMIT Allergy & Immunology; ATTEND Allergy & Immunology
PROC: HZ2ZZZZ Detoxification Services for Substance Abuse Treatment (ICD-10-PCS; principal; 2021-09-16)
DX: F11.23 Opioid dependence with withdrawal (principal); F13.230 Sedative, hypnotic or anxiolytic dependence with withdrawal, uncomplicated; F16.20 Hallucinogen dependence, uncomplicated; F12.20 Cannabis dependence, uncomplicated; F17.210 Nicotine dependence, cigarettes, uncomplicated; F19.282 Other psychoactive substance dependence with psychoactive substance-induced sleep disorder; F19.280 Other psychoactive substance dependence with psychoactive substance-induced anxiety disorder; F19.24 Other psychoactive substance dependence with psychoactive substance-induced mood disorder; F41.9 Anxiety disorder, unspecified; F32.9 Major depressive disorder, single episode, unspecified; F90.9 Attention-deficit hyperactivity disorder, unspecified type; F39 Unspecified mood [affective] disorder; E05.90 Thyrotoxicosis, unspecified without thyrotoxic crisis or storm; M54.50 Low back pain, unspecified; G89.29 Other chronic pain; Z62.810 Personal history of physical and sexual abuse in childhood; Z91.410 Personal history of adult physical and sexual abuse; Z56.0 Unemployment, unspecified; Z87.828 Personal history of other (healed) physical injury and trauma
CPT/HCPCS: 36415; 80053; 82962; 85027; 86780; C9803; J0735; U0003; U0005

== ENCOUNTER 2021-09-21 12:32 | Inpatient (IN) | payer OTHER ==
[2021-09-21] MEDS ORDERED: MAGNESIUM CITRATE 300 ML BOTTLE PO PRN (15:14)
[2021-09-21] MEDS ORDERED: P-EPHED 60MG/TRIPROLIDI 2.5MG TABLET PO PRN (15:14)
[2021-09-21] MEDS ORDERED: NICOTINE 10 MG CARTRIDGE (INHALER) IH PRN (15:14)
[2021-09-21] MEDS ORDERED: MAG HYDROX/AL HYDROX/SIMETH 30 ML UNIT-DOSE CUP PO PRN (15:14)
[2021-09-21] MEDS ORDERED: guaiFENesin 200 MG/10 ML 10 ML UNIT-DOSE CUPS PO PRN (15:14)
[2021-09-21] MEDS ORDERED: LOPERAMIDE HCL 2 MG CAPSULE PO PRN (15:14)
[2021-09-21] MEDS ORDERED: MENTHOL/PHENOL 1 EACH UD MM PRN (15:14)
[2021-09-21] MEDS ORDERED: MAGNESIUM HYDROX 2400MG/30ML ORAL SUSPENSION 30 ML CUP PO PRN (15:14)
[2021-09-21] MEDS ORDERED: NICOTINE POLACRILEX 2 MG GUM BUC PRN (15:14)
[2021-09-21] MEDS: MELATONIN 5 MG TABLETS PO SCH (21:28)
[2021-09-21] MEDS: hydrOXYzine PAMOATE 25 MG CAPSULE (FP) PO PRN (21:30)
[2021-09-21] MEDS: THIAMINE HCL 100 MG TABLET (FP) PO SCH (21:31)
[2021-09-22] MEDS: NICOTINE 7 MG/24 HOURS TOPICAL PATCH TD SCH (10:40)
[2021-09-22] MEDS: PRENATAL VITAMINS W/ FOLIC ACID TABLET (FP) PO SCH (10:40)
[2021-09-22] MEDS: MELATONIN 5 MG TABLETS PO SCH (21:50)
[2021-09-22] MEDS: THIAMINE HCL 100 MG TABLET (FP) PO SCH (21:50)
[2021-09-22] MEDS: hydrOXYzine PAMOATE 25 MG CAPSULE (FP) PO PRN (21:50)
[2021-09-22] MEDS: IBUPROFEN 400 MG TABLET (FP) PO PRN (21:51)
[2021-09-23] MEDS: METHOCARBAMOL 500 MG TABLET PO SCH ×3 (06:40→21:32)
[2021-09-23] MEDS: IBUPROFEN 400 MG TABLET (FP) PO PRN ×3 (07:52→23:54)
[2021-09-23] MEDS: ACETAMINOPHEN 325 MG TABLET (FP) PO PRN (09:24)
[2021-09-23] MEDS: PRENATAL VITAMINS W/ FOLIC ACID TABLET (FP) PO SCH (09:24)
[2021-09-23] MEDS: hydrOXYzine PAMOATE 50 MG CAPSULE (FP) PO PRN ×3 (09:24→21:32)
[2021-09-23] MEDS: NICOTINE 7 MG/24 HOURS TOPICAL PATCH TD SCH (09:26)
[2021-09-23] MEDS: MELATONIN 5 MG TABLETS PO SCH (21:31)
[2021-09-23] MEDS: THIAMINE HCL 100 MG TABLET (FP) PO SCH (21:32)
[2021-09-23] MEDS ORDERED: traZODone HCL 50 MG TABLET (FP) PO SCH (22:00)
[2021-09-24] MEDS: METHOCARBAMOL 500 MG TABLET PO SCH ×3 (07:32→21:32)
[2021-09-24] MEDS: IBUPROFEN 400 MG TABLET (FP) PO PRN (07:32)
[2021-09-24] MEDS: PRENATAL VITAMINS W/ FOLIC ACID TABLET (FP) PO SCH (10:40)
[2021-09-24] MEDS: NICOTINE 7 MG/24 HOURS TOPICAL PATCH TD SCH (10:40)
[2021-09-24] MEDS ORDERED: BUPRENORPHINE/NALOXONE 2 MG/0.5 MG FILM PACKET SL ONE ×2 (12:04→18:00)
[2021-09-24] MEDS: hydrOXYzine PAMOATE 50 MG CAPSULE (FP) PO PRN ×3 (14:31→21:34)
[2021-09-24] MEDS: ACETAMINOPHEN 325 MG TABLET (FP) PO PRN (16:47)
[2021-09-24] MEDS: MELATONIN 5 MG TABLETS PO SCH (21:32)
[2021-09-24] MEDS: THIAMINE HCL 100 MG TABLET (FP) PO SCH (21:32)
[2021-09-24] MEDS: SUVOREXANT 15 MG TABLET PO PRN (21:35)
[2021-09-25] MEDS: IBUPROFEN 400 MG TABLET (FP) PO PRN ×3 (01:01→18:14)
[2021-09-25] MEDS: METHOCARBAMOL 500 MG TABLET PO SCH ×3 (07:44→22:58)
[2021-09-25] MEDS ORDERED: BUPRENORPHINE/NALOXONE 4 MG/1 MG FILM PACKET SL SCH (10:00)
[2021-09-25] MEDS: PRENATAL VITAMINS W/ FOLIC ACID TABLET (FP) PO SCH (10:04)
[2021-09-25] MEDS: hydrOXYzine PAMOATE 50 MG CAPSULE (FP) PO PRN (10:07)
[2021-09-25] MEDS: NICOTINE 7 MG/24 HOURS TOPICAL PATCH TD SCH (10:08)
[2021-09-25] MEDS ORDERED: PT OWN MED DRAWER 7, Y5N ONE (10:54)
[2021-09-25] MEDS: MELATONIN 5 MG TABLETS PO SCH (22:58)
[2021-09-25] MEDS: THIAMINE HCL 100 MG TABLET (FP) PO SCH (22:59)
[2021-09-26] MEDS: METHOCARBAMOL 500 MG TABLET PO SCH ×3 (06:37→21:30)
[2021-09-26] MEDS: IBUPROFEN 400 MG TABLET (FP) PO PRN ×3 (06:38→21:29)
[2021-09-26] MEDS: NICOTINE 7 MG/24 HOURS TOPICAL PATCH TD SCH (10:02)
[2021-09-26] MEDS: PRENATAL VITAMINS W/ FOLIC ACID TABLET (FP) PO SCH (10:02)
[2021-09-26] MEDS: BUPRENORPHINE/NALOXONE 8 MG/2 MG FILM PACKET SL SCH ×2 (10:02→19:53)
[2021-09-26] MEDS: hydrOXYzine PAMOATE 50 MG CAPSULE (FP) PO PRN (10:03)
[2021-09-26] MEDS: THIAMINE HCL 100 MG TABLET (FP) PO SCH (21:30)
[2021-09-26] MEDS: MELATONIN 5 MG TABLETS PO SCH (21:30)
[2021-09-26] MEDS: SUVOREXANT 15 MG TABLET PO PRN (21:30)
[2021-09-27] MEDS: METHOCARBAMOL 500 MG TABLET PO SCH ×3 (06:14→21:30)
[2021-09-27] MEDS: IBUPROFEN 400 MG TABLET (FP) PO PRN ×3 (06:14→21:30)
[2021-09-27] MEDS: PRENATAL VITAMINS W/ FOLIC ACID TABLET (FP) PO SCH (10:08)
[2021-09-27] MEDS: hydrOXYzine PAMOATE 50 MG CAPSULE (FP) PO PRN ×2 (10:09→21:30)
[2021-09-27] MEDS: NICOTINE 7 MG/24 HOURS TOPICAL PATCH TD SCH (10:09)
[2021-09-27] MEDS: BUPRENORPHINE/NALOXONE 8 MG/2 MG FILM PACKET SL SCH ×2 (10:09→20:24)
[2021-09-27] MEDS: SUVOREXANT 15 MG TABLET PO PRN (21:30)
[2021-09-27] MEDS: THIAMINE HCL 100 MG TABLET (FP) PO SCH (21:30)
[2021-09-27] MEDS: MELATONIN 5 MG TABLETS PO SCH (21:30)
[2021-09-28] MEDS: METHOCARBAMOL 500 MG TABLET PO SCH ×4 (07:57→21:34)
[2021-09-28] MEDS: PRENATAL VITAMINS W/ FOLIC ACID TABLET (FP) PO SCH (10:08)
[2021-09-28] MEDS: BUPRENORPHINE/NALOXONE 8 MG/2 MG FILM PACKET SL SCH ×2 (10:08→20:02)
[2021-09-28] MEDS: NICOTINE 7 MG/24 HOURS TOPICAL PATCH TD SCH (10:08)
[2021-09-28] MEDS: IBUPROFEN 400 MG TABLET (FP) PO PRN ×2 (10:10→21:34)
[2021-09-28] MEDS: SUVOREXANT 15 MG TABLET PO PRN (21:34)
[2021-09-28] MEDS: THIAMINE HCL 100 MG TABLET (FP) PO SCH (21:34)
[2021-09-28] MEDS: MELATONIN 5 MG TABLETS PO SCH (21:36)
[2021-09-29] MEDS: METHOCARBAMOL 500 MG TABLET PO SCH ×3 (06:30→21:46)
[2021-09-29] MEDS ORDERED: PT OWN MED DRAWER 7, Y5N ONE (09:50)
[2021-09-29] MEDS: PRENATAL VITAMINS W/ FOLIC ACID TABLET (FP) PO SCH (09:55)
[2021-09-29] MEDS: BUPRENORPHINE/NALOXONE 8 MG/2 MG FILM PACKET SL SCH ×2 (09:55→19:11)
[2021-09-29] MEDS: NICOTINE 7 MG/24 HOURS TOPICAL PATCH TD SCH (09:55)
[2021-09-29] MEDS: IBUPROFEN 400 MG TABLET (FP) PO PRN ×2 (09:56→19:12)
[2021-09-29] MEDS: SUVOREXANT 15 MG TABLET PO PRN (21:45)
[2021-09-29] MEDS: THIAMINE HCL 100 MG TABLET (FP) PO SCH (21:45)
[2021-09-29] MEDS: MELATONIN 5 MG TABLETS PO SCH (21:46)
[2021-09-29] MEDS: hydrOXYzine PAMOATE 50 MG CAPSULE (FP) PO PRN (21:47)
[2021-09-30] MEDS: METHOCARBAMOL 500 MG TABLET PO SCH ×3 (06:30→21:32)
[2021-09-30] MEDS: NICOTINE 7 MG/24 HOURS TOPICAL PATCH TD SCH (10:00)
[2021-09-30] MEDS: PRENATAL VITAMINS W/ FOLIC ACID TABLET (FP) PO SCH (10:00)
[2021-09-30] MEDS: BUPRENORPHINE/NALOXONE 8 MG/2 MG FILM PACKET SL SCH ×2 (10:01→19:32)
[2021-09-30] MEDS: IBUPROFEN 400 MG TABLET (FP) PO PRN ×2 (10:02→19:32)
[2021-09-30] MEDS: hydrOXYzine PAMOATE 50 MG CAPSULE (FP) PO PRN (19:33)
[2021-09-30] MEDS: THIAMINE HCL 100 MG TABLET (FP) PO SCH (21:32)
[2021-09-30] MEDS: SUVOREXANT 15 MG TABLET PO PRN (21:33)
[2021-09-30] MEDS: MELATONIN 5 MG TABLETS PO SCH (21:34)
[2021-10-01] MEDS: METHOCARBAMOL 500 MG TABLET PO SCH ×3 (06:19→21:36)
[2021-10-01] MEDS: NICOTINE 7 MG/24 HOURS TOPICAL PATCH TD SCH (10:05)
[2021-10-01] MEDS: PRENATAL VITAMINS W/ FOLIC ACID TABLET (FP) PO SCH (10:05)
[2021-10-01] MEDS: IBUPROFEN 400 MG TABLET (FP) PO PRN (10:06)
[2021-10-01] MEDS: BUPRENORPHINE/NALOXONE 8 MG/2 MG FILM PACKET SL SCH ×2 (10:07→19:52)
[2021-10-01] MEDS: MELATONIN 5 MG TABLETS PO SCH (21:36)
[2021-10-01] MEDS: THIAMINE HCL 100 MG TABLET (FP) PO SCH (21:36)
[2021-10-01] MEDS: hydrOXYzine PAMOATE 50 MG CAPSULE (FP) PO PRN (21:36)
[2021-10-01] MEDS: SUVOREXANT 15 MG TABLET PO PRN (21:37)
[2021-10-02] MEDS: METHOCARBAMOL 500 MG TABLET PO SCH ×4 (06:27→21:38)
[2021-10-02] MEDS: IBUPROFEN 400 MG TABLET (FP) PO PRN ×2 (06:51→21:38)
[2021-10-02 07:18] VITALS: BP 114/55; PULSE 63; TEMP 97.5
[2021-10-02] MEDS: PRENATAL VITAMINS W/ FOLIC ACID TABLET (FP) PO SCH (09:58)
[2021-10-02] MEDS: BUPRENORPHINE/NALOXONE 8 MG/2 MG FILM PACKET SL SCH ×2 (09:58→19:06)
[2021-10-02] MEDS: NICOTINE 7 MG/24 HOURS TOPICAL PATCH TD SCH (09:58)
[2021-10-02] MEDS: hydrOXYzine PAMOATE 50 MG CAPSULE (FP) PO PRN (09:59)
[2021-10-02] MEDS: SUVOREXANT 15 MG TABLET PO PRN (21:37)
[2021-10-02] MEDS: THIAMINE HCL 100 MG TABLET (FP) PO SCH (21:38)
[2021-10-02] MEDS: MELATONIN 5 MG TABLETS PO SCH (22:24)
[2021-10-03] MEDS: METHOCARBAMOL 500 MG TABLET PO SCH ×3 (07:37→21:34)
[2021-10-03] MEDS: NICOTINE 7 MG/24 HOURS TOPICAL PATCH TD SCH (10:08)
[2021-10-03] MEDS: PRENATAL VITAMINS W/ FOLIC ACID TABLET (FP) PO SCH (10:08)
[2021-10-03] MEDS: IBUPROFEN 400 MG TABLET (FP) PO PRN ×2 (10:09→21:34)
[2021-10-03] MEDS ORDERED: BUPRENORPHINE/NALOXONE 8 MG/2 MG FILM PACKET SL ONE (11:00)
[2021-10-03] MEDS: BUPRENORPHINE/NALOXONE 8 MG/2 MG FILM PACKET SL SCH (18:10)
[2021-10-03] MEDS: SUVOREXANT 15 MG TABLET PO PRN (21:34)
[2021-10-03] MEDS: hydrOXYzine PAMOATE 50 MG CAPSULE (FP) PO PRN (21:34)
[2021-10-03] MEDS: THIAMINE HCL 100 MG TABLET (FP) PO SCH (21:34)
[2021-10-03] MEDS ORDERED: SUVOREXANT 15 MG TABLET PO PRN (22:00)
[2021-10-04] MEDS: METHOCARBAMOL 500 MG TABLET PO SCH ×3 (06:56→21:35)
[2021-10-04] MEDS: PRENATAL VITAMINS W/ FOLIC ACID TABLET (FP) PO SCH (10:03)
[2021-10-04] MEDS: IBUPROFEN 400 MG TABLET (FP) PO PRN ×2 (10:03→21:36)
[2021-10-04] MEDS: BUPRENORPHINE/NALOXONE 8 MG/2 MG FILM PACKET SL SCH ×2 (10:03→17:55)
[2021-10-04] MEDS: NICOTINE 7 MG/24 HOURS TOPICAL PATCH TD SCH (10:04)
[2021-10-04] MEDS ORDERED: BENZOCAINE 20 % GEL TUBE MM PRN (11:02)
[2021-10-04] MEDS: AMOX TR/POT CLAV 875MG/125MG TABLETS (FP) PO SCH ×2 (11:50→17:55)
[2021-10-04] MEDS: hydrOXYzine PAMOATE 50 MG CAPSULE (FP) PO PRN (21:35)
[2021-10-04] MEDS: THIAMINE HCL 100 MG TABLET (FP) PO SCH (21:35)
[2021-10-05] MEDS: AMOX TR/POT CLAV 875MG/125MG TABLETS (FP) PO SCH (07:04)
[2021-10-05] MEDS: METHOCARBAMOL 500 MG TABLET PO SCH (07:04)
[2021-10-05] MEDS: PRENATAL VITAMINS W/ FOLIC ACID TABLET (FP) PO SCH (09:03)
[2021-10-05] MEDS: BUPRENORPHINE/NALOXONE 8 MG/2 MG FILM PACKET SL SCH (09:03)
[2021-10-05] MEDS: NICOTINE 7 MG/24 HOURS TOPICAL PATCH TD SCH (09:03)
== END 2021-10-05 09:12 | disposition home or self-care (01) | DRG 772 ==
LOC: YASAS 12:32 → Y5N 12:35
PROVIDERS: ADMIT Allergy & Immunology; ATTEND Allergy & Immunology
PROC: HZ42ZZZ Group Counseling for Substance Abuse Treatment, Cognitive-Behavioral (ICD-10-PCS; principal; 2021-09-21)
DX: F11.20 Opioid dependence, uncomplicated (principal); F10.20 Alcohol dependence, uncomplicated; F13.20 Sedative, hypnotic or anxiolytic dependence, uncomplicated; F16.20 Hallucinogen dependence, uncomplicated; F12.20 Cannabis dependence, uncomplicated; F17.210 Nicotine dependence, cigarettes, uncomplicated; E05.90 Thyrotoxicosis, unspecified without thyrotoxic crisis or storm; M54.50 Low back pain, unspecified; G89.29 Other chronic pain; Z62.810 Personal history of physical and sexual abuse in childhood; Z91.410 Personal history of adult physical and sexual abuse; Z87.01 Personal history of pneumonia (recurrent); Z86.59 Personal history of other mental and behavioral disorders

== ENCOUNTER 2023-03-17 15:47 | Inpatient (IN) | payer OTHER ==
[2023-03-17 16:38] VITALS: BMI 36.9
[2023-03-17] MEDS ORDERED: AMMONIUM LACTATE 12% LOTION 225 GM BOTTLE TP PRN (18:49)
[2023-03-17] MEDS ORDERED: NICOTINE 10 MG CARTRIDGE (INHALER) IH PRN (18:49)
[2023-03-17] MEDS ORDERED: MAG HYDROX/AL HYDROX/SIMETH 30 ML UNIT-DOSE CUP PO PRN (18:49)
[2023-03-17] MEDS ORDERED: hydrOXYzine PAMOATE 25 MG CAPSULE (FP) PO PRN (18:49)
[2023-03-17] MEDS ORDERED: MAGNESIUM HYDROX 2400MG/30ML ORAL SUSPENSION 30 ML CUP PO PRN (18:49)
[2023-03-17] MEDS ORDERED: DICYCLOMINE HCL 10 MG CAPSULE PO PRN (18:49)
[2023-03-17] MEDS ORDERED: guaiFENesin 600 MG TABLET.ER (FP) PO PRN (18:49)
[2023-03-17] MEDS ORDERED: NALOXONE HCL 0.4 MG/ML VIAL IM PRN (18:49)
[2023-03-17] MEDS ORDERED: NALOXONE HCL (KLOXXADO) 8 MG SPRAY NS PRN (18:49)
[2023-03-17] MEDS ORDERED: BENZONATATE 200 MG CAPSULE PO PRN (18:49)
[2023-03-17] MEDS ORDERED: ACETAMINOPHEN 325 MG TABLET (FP) PO PRN (18:49)
[2023-03-17] MEDS ORDERED: COLLOIDAL OATMEAL 1 BAR EACH TP PRN (18:49)
[2023-03-17] MEDS ORDERED: ONDANSETRON *ODT* 4 MG TABLET SL PRN (18:49)
[2023-03-17] MEDS ORDERED: IBUPROFEN 600 MG TABLET (FP) PO PRN (18:49)
[2023-03-17] MEDS ORDERED: BISMUTH SUBSALICYLATE 524 MG/30 ML PO PRN (18:49)
[2023-03-17] MEDS ORDERED: cloNIDine HCL 0.1 MG TABLET PO PRN (18:49)
[2023-03-17] MEDS ORDERED: LOPERAMIDE HCL 2 MG CAPSULE PO PRN (18:49)
[2023-03-17] MEDS ORDERED: BENZOCAINE/MENTHOL (CHLORASEPTIC ) LOZENGE MM PRN (18:49)
[2023-03-17] MEDS ORDERED: POLYETHYLENE GLYCOL (HEALTHYLAX) 3350 17 GM PACKET PO PRN (18:49)
[2023-03-17] MEDS ORDERED: methaDONE HCL 10 MG TABLET (FOR DETOX USE ONLY) PO ONE (18:49)
[2023-03-17] MEDS ORDERED: IBUPROFEN 400 MG TABLET (FP) PO PRN (18:49)
[2023-03-17] MEDS ORDERED: NICOTINE 21 MG/24 HOURS TOPICAL PATCH ONE (19:23)
[2023-03-17] MEDS ORDERED: methaDONE HCL 10 MG TABLET (FOR DETOX USE ONLY) ONE (19:25)
[2023-03-17] MEDS: NICOTINE 21 MG/24 HOURS TOPICAL PATCH TD SCH (19:33)
[2023-03-17] MEDS: THIAMINE HCL 100 MG TABLET (FP) PO SCH (22:06)
[2023-03-17] MEDS: diazePAM 5 MG TABLET PO PRN (22:06)
[2023-03-17] MEDS: MELATONIN 5 MG TABLETS PO SCH (22:07)
[2023-03-18] MEDS: diazePAM 5 MG TABLET PO PRN ×4 (05:20→22:26)
[2023-03-18] MEDS: PRENATAL VITAMINS W/ FOLIC ACID TABLET (FP) PO SCH (10:10)
[2023-03-18] MEDS: NICOTINE 21 MG/24 HOURS TOPICAL PATCH TD SCH (10:11)
[2023-03-18 11:48] LABS: CALCIUM 9.3 mg/dL (8.5-10.1)
[2023-03-18 11:49] LABS: ALBUMIN 3.9 g/dl (3.4-5.0); BLOOD UREA NITROGEN 13.7 mg/dL (7-18)
[2023-03-18 11:53] LABS: HEMATOCRIT 42.4 % (35.4-49); HEMOGLOBIN 14.5 GM/dL (11.7-16.9); MCH 30.3 pg (25.7-33.7); MCHC 34.2 g/dl (32.0-35.9); MEAN CELL VOLUME 88.4 fl (80-96); MEAN PLT VOLUME 9.9 fl (7.5-11.1); PLATELET COUNT 219 10^3/uL (134-434); RDW 14.3 % (11.9-15.9); TOT PROT 7.6 g/dl (6.4-8.2); WHITE BLOOD COUNT 13.1 K/mm3 (4.0-10.0)
[2023-03-18 11:54] LABS: BILIRUBIN,TOTAL 0.4 mg/dL (0.2-1)
[2023-03-18] MEDS ORDERED: FLU VACC QS2022-23(6MOS UP)/PF 60 MCG/0.5 ML SYRINGE IM ONE (12:00)
[2023-03-18] MEDS ORDERED: PNEUMOC 20-VAL CONJ-DIP CRM/PF 0.5 ML SYRINGE IM ONE (12:00)
[2023-03-18 12:40] LABS: HIV INTERPRETATION NEGATIVE (NEGATIVE)
[2023-03-18] MEDS: MELATONIN 5 MG TABLETS PO SCH (22:26)
[2023-03-18] MEDS: THIAMINE HCL 100 MG TABLET (FP) PO SCH (22:26)
[2023-03-18] MEDS: QUEtiapine FUMARATE 100 MG TABLET (FP) PO SCH (22:26)
[2023-03-19] MEDS ORDERED: methaDONE HCL 10 MG TABLET (FOR DETOX USE ONLY) PO ONE (10:00)
[2023-03-19] MEDS: PRENATAL VITAMINS W/ FOLIC ACID TABLET (FP) PO SCH (10:19)
[2023-03-19] MEDS: NICOTINE 21 MG/24 HOURS TOPICAL PATCH TD SCH (10:20)
[2023-03-19] MEDS: diazePAM 5 MG TABLET PO PRN ×3 (10:21→20:10)
[2023-03-19 10:59] LABS: BASO % 0.5 % (0-2.0); EOS % 3.4 % (0-4.5); HEMATOCRIT 37.4 % (35.4-49); HEMOGLOBIN 13.2 GM/dL (11.7-16.9); LYMPH % 26.3 % (8-40); MCH 31.4 pg (25.7-33.7); MCHC 35.4 g/dl (32.0-35.9); MEAN CELL VOLUME 88.7 fl (80-96); MEAN PLT VOLUME 10.3 fl (7.5-11.1); MONO % 9.4 % (3.8-10.2); NEUT % 60.4 % (42.8-82.8); PLATELET COUNT 166 10^3/uL (134-434); RBC 4.21 M/mm3 (4.00-5.60); RDW 14.1 % (11.9-15.9); WHITE BLOOD COUNT 8.7 K/mm3 (4.0-10.0)
[2023-03-19] MEDS: METHOCARBAMOL 500 MG TABLET PO PRN (17:37)
[2023-03-19] MEDS: MELATONIN 5 MG TABLETS PO SCH (22:11)
[2023-03-19] MEDS: THIAMINE HCL 100 MG TABLET (FP) PO SCH (22:11)
[2023-03-19] MEDS: QUEtiapine FUMARATE 100 MG TABLET (FP) PO SCH (22:11)
[2023-03-20] MEDS: diazePAM 5 MG TABLET PO PRN ×4 (00:34→17:35)
[2023-03-20] MEDS: METHOCARBAMOL 500 MG TABLET PO PRN ×3 (00:34→17:35)
[2023-03-20] MEDS: PRENATAL VITAMINS W/ FOLIC ACID TABLET (FP) PO SCH (10:32)
[2023-03-20] MEDS: NICOTINE 21 MG/24 HOURS TOPICAL PATCH TD SCH (10:34)
[2023-03-20] MEDS: THIAMINE HCL 100 MG TABLET (FP) PO SCH (22:11)
[2023-03-20] MEDS: QUEtiapine FUMARATE 100 MG TABLET (FP) PO SCH (22:11)
[2023-03-20] MEDS: MELATONIN 5 MG TABLETS PO SCH (22:39)
[2023-03-21] MEDS: METHOCARBAMOL 500 MG TABLET PO PRN (05:43)
[2023-03-21 06:58] VITALS: RESP 16
[2023-03-21] MEDS ORDERED: methaDONE HCL 10 MG TABLET (FOR DETOX USE ONLY) PO ONE (10:00)
[2023-03-21] MEDS: PRENATAL VITAMINS W/ FOLIC ACID TABLET (FP) PO SCH (10:11)
[2023-03-21] MEDS: NICOTINE 21 MG/24 HOURS TOPICAL PATCH TD SCH (10:13)
[2023-03-21 12:46] VITALS: BP 143/95; PULSE 85; TEMP 97.5
== END 2023-03-21 13:26 | disposition home or self-care (01) | DRG 773 ==
LOC: YASAS 15:47 → Y3N 20:19
PROVIDERS: ADMIT Allergy & Immunology; ATTEND Surgery
PROC: HZ2ZZZZ Detoxification Services for Substance Abuse Treatment (ICD-10-PCS; principal; 2023-03-17)
DX: F11.23 Opioid dependence with withdrawal (principal); F12.20 Cannabis dependence, uncomplicated; F17.210 Nicotine dependence, cigarettes, uncomplicated; F31.9 Bipolar disorder, unspecified; F19.24 Other psychoactive substance dependence with psychoactive substance-induced mood disorder; F41.8 Other specified anxiety disorders; E05.90 Thyrotoxicosis, unspecified without thyrotoxic crisis or storm; S90.424A Blister (nonthermal), right lesser toe(s), initial encounter; S90.822A Blister (nonthermal), left foot, initial encounter; X58.XXXA Exposure to other specified factors, initial encounter; Y92.239 Unspecified place in hospital as the place of occurrence of the external cause; E66.9 Obesity, unspecified; Z68.36 Body mass index [BMI] 36.0-36.9, adult; Z28.310 Unvaccinated for COVID-19; Z28.9 Immunization not carried out for unspecified reason
CPT/HCPCS: 36415; 80053; 85025; 85027; 86780; 87389; C9803-CS; U0003; U0005

== ENCOUNTER 2023-04-12 08:35 | Inpatient (IN) | payer OTHER ==
[2023-04-12] MEDS ORDERED: BENZONATATE 200 MG CAPSULE PO PRN (10:33)
[2023-04-12] MEDS ORDERED: guaiFENesin 600 MG TABLET.ER (FP) PO PRN (10:33)
[2023-04-12] MEDS ORDERED: MAG HYDROX/AL HYDROX/SIMETH 30 ML UNIT-DOSE CUP PO PRN (10:33)
[2023-04-12] MEDS ORDERED: IBUPROFEN 600 MG TABLET (FP) PO PRN (10:33)
[2023-04-12] MEDS ORDERED: LOPERAMIDE HCL 2 MG CAPSULE PO PRN (10:33)
[2023-04-12] MEDS ORDERED: NICOTINE 10 MG CARTRIDGE (INHALER) IH PRN (10:33)
[2023-04-12] MEDS ORDERED: NALOXONE HCL 0.4 MG/ML VIAL IM PRN (10:33)
[2023-04-12] MEDS ORDERED: methaDONE HCL 10 MG TABLET (FOR DETOX USE ONLY) PO ONE (10:33)
[2023-04-12] MEDS ORDERED: MAGNESIUM HYDROX 2400MG/30ML ORAL SUSPENSION 30 ML CUP PO PRN (10:33)
[2023-04-12] MEDS ORDERED: ACETAMINOPHEN 325 MG TABLET (FP) PO PRN (10:33)
[2023-04-12] MEDS ORDERED: BISMUTH SUBSALICYLATE 524 MG/30 ML PO PRN (10:33)
[2023-04-12] MEDS ORDERED: ONDANSETRON *ODT* 4 MG TABLET SL PRN (10:33)
[2023-04-12] MEDS ORDERED: BENZOCAINE/MENTHOL (CHLORASEPTIC ) LOZENGE MM PRN (10:33)
[2023-04-12] MEDS ORDERED: DICYCLOMINE HCL 10 MG CAPSULE PO PRN (10:33)
[2023-04-12] MEDS ORDERED: NALOXONE HCL (KLOXXADO) 8 MG SPRAY NS PRN (10:33)
[2023-04-12] MEDS ORDERED: POLYETHYLENE GLYCOL (HEALTHYLAX) 3350 17 GM PACKET PO PRN (10:33)
[2023-04-12] MEDS ORDERED: cloNIDine HCL 0.1 MG TABLET PO PRN (10:33)
[2023-04-12] MEDS ORDERED: IBUPROFEN 400 MG TABLET (FP) PO PRN (10:33)
[2023-04-12] MEDS ORDERED: methaDONE HCL 10 MG TABLET (FOR DETOX USE ONLY) ONE (11:10)
[2023-04-12] MEDS ORDERED: diazePAM 5 MG TABLET ONE (11:11)
[2023-04-12] MEDS: diazePAM 5 MG TABLET PO PRN (11:21)
[2023-04-12 11:39] VITALS: BMI 33.0
[2023-04-12] MEDS: CEPHALEXIN MONOHYDRATE 500 MG CAPSULE (UD) PO SCH ×2 (11:46→22:23)
[2023-04-12] MEDS ORDERED: NICOTINE POLACRILEX 2 MG GUM BUC PRN (15:34)
[2023-04-12] MEDS: NICOTINE 21 MG/24 HOURS TOPICAL PATCH TD SCH (16:22)
[2023-04-12] MEDS: diazePAM 5 MG TABLET PO SCH ×2 (17:44→23:00)
[2023-04-12] MEDS: diazePAM 5 MG TABLET PO ONE (22:22)
[2023-04-12] MEDS: THIAMINE HCL 100 MG TABLET (FP) PO SCH (22:22)
[2023-04-12] MEDS: MELATONIN 5 MG TABLETS PO SCH (22:23)
[2023-04-13] MEDS: diazePAM 5 MG TABLET PO SCH ×4 (06:01→22:07)
[2023-04-13] MEDS: PRENATAL VITAMINS W/ FOLIC ACID TABLET (FP) PO SCH (10:10)
[2023-04-13] MEDS: CEPHALEXIN MONOHYDRATE 500 MG CAPSULE (UD) PO SCH ×2 (10:12→22:07)
[2023-04-13] MEDS: METHOCARBAMOL 500 MG TABLET PO PRN ×2 (10:12→17:02)
[2023-04-13] MEDS: NICOTINE 21 MG/24 HOURS TOPICAL PATCH TD SCH (10:14)
[2023-04-13] MEDS: diazePAM 5 MG TABLET PO PRN (14:38)
[2023-04-13 17:46] LABS: HEMATOCRIT 40.8 % (35.4-49); HEMOGLOBIN 13.8 GM/dL (11.7-16.9); MCH 29.9 pg (25.7-33.7); MCHC 33.9 g/dl (32.0-35.9); MEAN CELL VOLUME 88.1 fl (80-96); MEAN PLT VOLUME 9.7 fl (7.5-11.1); PLATELET COUNT 257 10^3/uL (134-434); RBC 4.62 M/mm3 (4.00-5.60); RDW 14.7 % (11.9-15.9); WHITE BLOOD COUNT 8.5 K/mm3 (4.0-10.0)
[2023-04-13 17:59] LABS: POTASSIUM 4.5 mmol/L (3.5-5.1)
[2023-04-13 18:04] LABS: CALCIUM 8.7 mg/dL (8.5-10.1)
[2023-04-13 18:05] LABS: ALBUMIN 3.1 g/dl (3.4-5.0); BLOOD UREA NITROGEN 10.7 mg/dL (7-18)
[2023-04-13 18:07] LABS: CREATININE 0.8 mg/dL (0.55-1.3)
[2023-04-13 18:09] LABS: TOT PROT 6.7 g/dl (6.4-8.2)
[2023-04-13 18:11] LABS: BILIRUBIN,TOTAL 0.2 mg/dL (0.2-1)
[2023-04-13] MEDS: THIAMINE HCL 100 MG TABLET (FP) PO SCH (22:07)
[2023-04-13] MEDS: MELATONIN 5 MG TABLETS PO SCH (22:08)
[2023-04-14] MEDS: diazePAM 5 MG TABLET PO SCH ×3 (05:15→21:52)
[2023-04-14] MEDS: METHOCARBAMOL 500 MG TABLET PO PRN ×3 (05:16→21:56)
[2023-04-14] MEDS ORDERED: methaDONE HCL 10 MG TABLET (FOR DETOX USE ONLY) PO ONE (10:00)
[2023-04-14] MEDS: PRENATAL VITAMINS W/ FOLIC ACID TABLET (FP) PO SCH (10:31)
[2023-04-14] MEDS: CEPHALEXIN MONOHYDRATE 500 MG CAPSULE (UD) PO SCH ×2 (10:31→21:52)
[2023-04-14] MEDS: NICOTINE 21 MG/24 HOURS TOPICAL PATCH TD SCH (10:31)
[2023-04-14] MEDS: THIAMINE HCL 100 MG TABLET (FP) PO SCH (21:52)
[2023-04-14] MEDS: MELATONIN 5 MG TABLETS PO SCH (21:53)
[2023-04-15] MEDS: diazePAM 5 MG TABLET PO SCH ×2 (05:51→17:13)
[2023-04-15] MEDS: PRENATAL VITAMINS W/ FOLIC ACID TABLET (FP) PO SCH (10:10)
[2023-04-15] MEDS: CEPHALEXIN MONOHYDRATE 500 MG CAPSULE (UD) PO SCH ×2 (10:10→22:34)
[2023-04-15] MEDS: hydrOXYzine PAMOATE 25 MG CAPSULE (FP) PO PRN ×2 (10:10→22:34)
[2023-04-15] MEDS: diazePAM 5 MG TABLET PO PRN (10:13)
[2023-04-15] MEDS: NICOTINE 21 MG/24 HOURS TOPICAL PATCH TD SCH (10:14)
[2023-04-15] MEDS: MELATONIN 5 MG TABLETS PO SCH (22:34)
[2023-04-15] MEDS: METHOCARBAMOL 500 MG TABLET PO PRN (22:34)
[2023-04-15] MEDS: THIAMINE HCL 100 MG TABLET (FP) PO SCH (22:34)
[2023-04-16] MEDS: diazePAM 5 MG TABLET PO ONE (05:28)
[2023-04-16] MEDS ORDERED: methaDONE HCL 10 MG TABLET (FOR DETOX USE ONLY) PO ONE (10:00)
[2023-04-16] MEDS: PRENATAL VITAMINS W/ FOLIC ACID TABLET (FP) PO SCH (10:30)
[2023-04-16] MEDS: METHOCARBAMOL 500 MG TABLET PO PRN ×2 (10:31→21:32)
[2023-04-16] MEDS: CEPHALEXIN MONOHYDRATE 500 MG CAPSULE (UD) PO SCH ×2 (10:31→21:32)
[2023-04-16] MEDS: NICOTINE 21 MG/24 HOURS TOPICAL PATCH TD SCH (10:31)
[2023-04-16] MEDS: hydrOXYzine PAMOATE 25 MG CAPSULE (FP) PO PRN ×2 (10:31→21:32)
[2023-04-16] MEDS: MELATONIN 5 MG TABLETS PO SCH (21:30)
[2023-04-16] MEDS: THIAMINE HCL 100 MG TABLET (FP) PO SCH (21:32)
[2023-04-17] MEDS: NICOTINE 21 MG/24 HOURS TOPICAL PATCH TD SCH (10:09)
[2023-04-17] MEDS: PRENATAL VITAMINS W/ FOLIC ACID TABLET (FP) PO SCH (10:09)
[2023-04-17] MEDS: CEPHALEXIN MONOHYDRATE 500 MG CAPSULE (UD) PO SCH (10:09)
[2023-04-17] MEDS: METHOCARBAMOL 500 MG TABLET PO PRN (10:09)
[2023-04-17] MEDS: hydrOXYzine PAMOATE 25 MG CAPSULE (FP) PO PRN (10:09)
[2023-04-17 13:08] VITALS: BP 132/74; PULSE 80; RESP 17; TEMP 98.1
== END 2023-04-17 13:20 | disposition other institution (70) | DRG 773 ==
LOC: YASAS 08:35 → Y6N 10:48
PROVIDERS: ADMIT Allergy & Immunology; ATTEND Surgery
PROC: HZ2ZZZZ Detoxification Services for Substance Abuse Treatment (ICD-10-PCS; principal; 2023-04-12)
DX: F11.23 Opioid dependence with withdrawal (principal); F13.230 Sedative, hypnotic or anxiolytic dependence with withdrawal, uncomplicated; F10.20 Alcohol dependence, uncomplicated; F12.20 Cannabis dependence, uncomplicated; F17.210 Nicotine dependence, cigarettes, uncomplicated; G47.00 Insomnia, unspecified; L97.919 Non-pressure chronic ulcer of unspecified part of right lower leg with unspecified severity; L97.929 Non-pressure chronic ulcer of unspecified part of left lower leg with unspecified severity
CPT/HCPCS: 36415; 80053; 85027; 86780; 87811; C9803-CS; U0003; U0005

== ENCOUNTER 2023-04-17 13:24 | Inpatient (IN) | payer OTHER ==
[2023-04-17 14:14] VITALS: RESP 18
[2023-04-17] MEDS ORDERED: BENZONATATE 200 MG CAPSULE PO PRN (14:59)
[2023-04-17] MEDS ORDERED: LOPERAMIDE HCL 2 MG CAPSULE PO PRN (14:59)
[2023-04-17] MEDS ORDERED: guaiFENesin 600 MG TABLET.ER (FP) PO PRN (14:59)
[2023-04-17] MEDS ORDERED: BENZOCAINE/MENTHOL (CHLORASEPTIC ) LOZENGE MM PRN (14:59)
[2023-04-17] MEDS ORDERED: MAGNESIUM HYDROX 2400MG/30ML ORAL SUSPENSION 30 ML CUP PO PRN (14:59)
[2023-04-17] MEDS ORDERED: POLYETHYLENE GLYCOL (HEALTHYLAX) 3350 17 GM PACKET PO PRN (14:59)
[2023-04-17] MEDS ORDERED: AMMONIUM LACTATE 12% LOTION 225 GM BOTTLE TP PRN (14:59)
[2023-04-17] MEDS ORDERED: MAG HYDROX/AL HYDROX/SIMETH 30 ML UNIT-DOSE CUP PO PRN (14:59)
[2023-04-17] MEDS ORDERED: COLLOIDAL OATMEAL 1 BAR EACH TP PRN (14:59)
[2023-04-17] MEDS ORDERED: NALOXONE HCL 0.4 MG/ML VIAL IVPUSH PRN (14:59)
[2023-04-17] MEDS ORDERED: IBUPROFEN 600 MG TABLET (FP) PO PRN (14:59)
[2023-04-17] MEDS ORDERED: NICOTINE 21 MG/24 HOURS TOPICAL PATCH TD PRN (14:59)
[2023-04-17] MEDS ORDERED: BACLOFEN 10 MG TABLET (FP) PO PRN (14:59)
[2023-04-17] MEDS ORDERED: ACETAMINOPHEN 325 MG TABLET (FP) PO PRN (14:59)
[2023-04-17] MEDS ORDERED: IBUPROFEN 400 MG TABLET (FP) PO PRN (14:59)
[2023-04-17] MEDS ORDERED: NALOXONE HCL (KLOXXADO) 8 MG SPRAY NS PRN (14:59)
[2023-04-17] MEDS: THIAMINE HCL 100 MG TABLET (FP) PO SCH (21:07)
[2023-04-17] MEDS: MELATONIN 5 MG TABLETS PO SCH (21:07)
[2023-04-17] MEDS: CEPHALEXIN MONOHYDRATE 500 MG CAPSULE (UD) PO SCH (21:07)
[2023-04-17] MEDS: CLINDAMYCIN PHOSPHATE 1% TOPICAL GEL 30 GM TUBE TP SCH (21:08)
[2023-04-18] MEDS: CLINDAMYCIN PHOSPHATE 1% TOPICAL GEL 30 GM TUBE TP SCH ×2 (10:44→21:56)
[2023-04-18] MEDS: PRENATAL VITAMINS W/ FOLIC ACID TABLET (FP) PO SCH (10:44)
[2023-04-18] MEDS: CEPHALEXIN MONOHYDRATE 500 MG CAPSULE (UD) PO SCH ×2 (10:44→21:53)
[2023-04-18] MEDS: MELATONIN 5 MG TABLETS PO SCH (21:53)
[2023-04-18] MEDS: THIAMINE HCL 100 MG TABLET (FP) PO SCH (21:54)
[2023-04-19] MEDS: CLINDAMYCIN PHOSPHATE 1% TOPICAL GEL 30 GM TUBE TP SCH ×2 (09:47→21:19)
[2023-04-19] MEDS: PRENATAL VITAMINS W/ FOLIC ACID TABLET (FP) PO SCH (09:47)
[2023-04-19] MEDS: CEPHALEXIN MONOHYDRATE 500 MG CAPSULE (UD) PO SCH ×2 (09:47→21:18)
[2023-04-19] MEDS: NICOTINE 10 MG CARTRIDGE (INHALER) IH PRN (13:33)
[2023-04-19] MEDS: THIAMINE HCL 100 MG TABLET (FP) PO SCH (21:18)
[2023-04-19] MEDS: hydrOXYzine PAMOATE 25 MG CAPSULE (FP) PO PRN (21:18)
[2023-04-19] MEDS: MELATONIN 5 MG TABLETS PO SCH (21:19)
[2023-04-20] MEDS: CEPHALEXIN MONOHYDRATE 500 MG CAPSULE (UD) PO SCH ×2 (11:07→21:26)
[2023-04-20] MEDS: PRENATAL VITAMINS W/ FOLIC ACID TABLET (FP) PO SCH (11:08)
[2023-04-20] MEDS: CLINDAMYCIN PHOSPHATE 1% TOPICAL GEL 30 GM TUBE TP SCH ×2 (11:08→21:27)
[2023-04-20] MEDS: MELATONIN 5 MG TABLETS PO SCH (21:26)
[2023-04-20] MEDS: THIAMINE HCL 100 MG TABLET (FP) PO SCH (21:26)
[2023-04-21] MEDS: PRENATAL VITAMINS W/ FOLIC ACID TABLET (FP) PO SCH (09:53)
[2023-04-21] MEDS: CLINDAMYCIN PHOSPHATE 1% TOPICAL GEL 30 GM TUBE TP SCH ×2 (09:54→21:57)
[2023-04-21] MEDS: CEPHALEXIN MONOHYDRATE 500 MG CAPSULE (UD) PO SCH ×2 (09:54→21:54)
[2023-04-21] MEDS ORDERED: BUPRENORPHINE/NALOXONE 2 MG/0.5 MG FILM PACKET SL ONE (11:39)
[2023-04-21] MEDS: THIAMINE HCL 100 MG TABLET (FP) PO SCH (21:54)
[2023-04-21] MEDS: MELATONIN 5 MG TABLETS PO SCH (21:56)
[2023-04-21] MEDS: BACITRACIN ZINC 15 GM TUBE TOPICAL OINTMENT TP SCH (23:03)
[2023-04-22] MEDS: CLINDAMYCIN PHOSPHATE 1% TOPICAL GEL 30 GM TUBE TP SCH ×2 (09:44→21:31)
[2023-04-22] MEDS: PRENATAL VITAMINS W/ FOLIC ACID TABLET (FP) PO SCH (09:44)
[2023-04-22] MEDS: BACITRACIN ZINC 15 GM TUBE TOPICAL OINTMENT TP SCH ×2 (09:44→21:30)
[2023-04-22] MEDS: CEPHALEXIN MONOHYDRATE 500 MG CAPSULE (UD) PO SCH ×2 (09:45→21:32)
[2023-04-22] MEDS ORDERED: BUPRENORPHINE/NALOXONE 2 MG/0.5 MG FILM PACKET SL SCH (10:00)
[2023-04-22] MEDS: NICOTINE 10 MG CARTRIDGE (INHALER) IH PRN (12:38)
[2023-04-22] MEDS ORDERED: BUPRENORPHINE/NALOXONE 8 MG/2 MG FILM PACKET SL ONE (19:00)
[2023-04-22] MEDS: THIAMINE HCL 100 MG TABLET (FP) PO SCH (21:32)
[2023-04-22] MEDS: MELATONIN 5 MG TABLETS PO SCH (21:32)
[2023-04-23] MEDS: BACITRACIN ZINC 15 GM TUBE TOPICAL OINTMENT TP SCH ×2 (09:58→21:13)
[2023-04-23] MEDS: PRENATAL VITAMINS W/ FOLIC ACID TABLET (FP) PO SCH (09:58)
[2023-04-23] MEDS: BUPRENORPHINE/NALOXONE 8 MG/2 MG FILM PACKET SL SCH ×2 (10:00→21:13)
[2023-04-23] MEDS: MELATONIN 5 MG TABLETS PO SCH (21:11)
[2023-04-23] MEDS: hydrOXYzine PAMOATE 25 MG CAPSULE (FP) PO PRN (21:12)
[2023-04-23] MEDS: THIAMINE HCL 100 MG TABLET (FP) PO SCH (21:12)
[2023-04-24] MEDS: PRENATAL VITAMINS W/ FOLIC ACID TABLET (FP) PO SCH (09:38)
[2023-04-24] MEDS: hydrOXYzine PAMOATE 25 MG CAPSULE (FP) PO PRN ×2 (09:38→21:11)
[2023-04-24] MEDS: BUPRENORPHINE/NALOXONE 8 MG/2 MG FILM PACKET SL SCH ×2 (09:40→21:10)
[2023-04-24] MEDS: BACITRACIN ZINC 15 GM TUBE TOPICAL OINTMENT TP SCH ×2 (09:40→21:10)
[2023-04-24] MEDS: MELATONIN 5 MG TABLETS PO SCH (21:10)
[2023-04-24] MEDS: THIAMINE HCL 100 MG TABLET (FP) PO SCH (21:11)
[2023-04-25 07:09] VITALS: BP 124/80; PULSE 63; TEMP 97.8
[2023-04-25] MEDS: PRENATAL VITAMINS W/ FOLIC ACID TABLET (FP) PO SCH (09:37)
[2023-04-25] MEDS: BUPRENORPHINE/NALOXONE 8 MG/2 MG FILM PACKET SL SCH (09:38)
[2023-04-25] MEDS: hydrOXYzine PAMOATE 25 MG CAPSULE (FP) PO PRN (09:39)
== END 2023-04-25 11:00 | disposition home or self-care (01) | DRG 772 ==
LOC: YASAS 13:24 → Y5N 13:25
PROVIDERS: ADMIT Allergy & Immunology; ATTEND Psychiatry & Neurology Pain Medicine
PROC: HZ42ZZZ Group Counseling for Substance Abuse Treatment, Cognitive-Behavioral (ICD-10-PCS; principal; 2023-04-17)
DX: F11.20 Opioid dependence, uncomplicated (principal); F13.20 Sedative, hypnotic or anxiolytic dependence, uncomplicated; F10.20 Alcohol dependence, uncomplicated; F12.20 Cannabis dependence, uncomplicated; F17.210 Nicotine dependence, cigarettes, uncomplicated; E66.9 Obesity, unspecified; Z68.33 Body mass index [BMI] 33.0-33.9, adult; S90.122A Contusion of left lesser toe(s) without damage to nail, initial encounter; W22.8XXA Striking against or struck by other objects, initial encounter; Y92.239 Unspecified place in hospital as the place of occurrence of the external cause
CPT/HCPCS: 36415; 86803; J0475